=== PATIENT | female | born 1955 | race Caucasian/White ===

== ENCOUNTER 2022-08-26 18:58 | Inpatient (IN) | payer OTHER ==
--- OUTSIDE RECORDS SUMMARY | 2022-08-26 19:14 | XMS REPORT | Continuity of Care Document ---
:1955 Author Organization [facility] t Address [address] [place] [address] Care Team Providers Name Role Phone ABEL JIM COSTA Primary Care Physician CATRACHITO FOX Attending Clinician Unavailable CATRACHITO FOX Attending Clinician Unavailable KHAN_F Attending Clinician Unavailable LEONCIO DIEGO Attending Clinician Unavailable MATTHEW BERRY Attending Clinician Unavailable MENDEZ AGUILAR Attending Clinician Unavailable Durayappah_A Attending Clinician Unavailable Claudia Feldman MA Attending Clinician Unavailable DAMIEN MORALEZ Attending Clinician Unavailable ANTHONY WANG Attending Clinician Unavailable LEVAR JI Attending Clinician Unavailable CATRACHITO FOX M.D. Attending Clinician Unavailable MILTON TIRADO APRN Attending Clinician Unavailable IDRIS THAYER M.D. Attending Clinician Unavailable Reed Jordan Attending Clinician MARIA DEL CARMEN DEWEY Attending Clinician Unavailable KAHLIL LEWIS Attending Clinician Unavailable KHAN_F Admitting Clinician Unavailable Durayappah_A Admitting Clinician Unavailable ANTHONY WANG Admitting Clinician Unavailable LEVAR JI Admitting Clinician Unavailable Payers Payer Name Policy Type Policy Number Effective Date Expiration Date zuly [facility] [id number] 2021 00:00:00 [facility] [id number] 2020 [facility] 00:00:[address] (O) Problems Condition Condition Condition Status Onset Resolution Last Treating Co mments Source Name Details Category Date Date Treatment Clinician Date Anxiety Anxiety Problem Active [facility] disorder Disorder 1-07 Family 00:00: Practic 00 e Spasm Spasm Problem Active [facility] 1-07 Family 00:00: Practic 00 e Anxiety Anxiety Problem Active [facility] 9-14 Family 00:00: Practic 00 e Polyneurop Polyneurop Problem Active [facility] at[facility] athy 9-14 Family 00:00: Practic 00 e Low blood Low Blood Problem Active Niki [place] pressure Pressure 9-14 Family 00:00: Practic 00 e Gastro-eso Gastro-eso Problem Active [facility] phageal phageal 14 Family reflux Reflux 00:00: Practic disease Disease 00 e with with esophagiti Esophagiti s s Chronic Chronic Problem Active [facility] kidney Kidney -14 Family disease Disease 00:00: Practic stage 4 Stage 4 00 e Neurogenic Neurogenic Problem Active [facility] dysfunctio Dysfunctio -14 Jorden argueta n of the n of the 00:00: Practi c urinary Urinary 00 e bladder Bladder Rheumatoid Rheumatoid Problem Active [facility] arthritis Arthritis 14 Fami ly 00:00: Practic 00 e Ankle Ankle Problem Active [facility] instabilit Instabilit 9-14 Fa kendall y y 00:00: Practic 00 e Dysphagia Dysphagia Problem Active Niki sammi 9-14 Family 00:00: Practic 00 e Recurrent Recurrent Problem Active Niki [place] 9-14 Family 00:00: Practic 00 e G90.09 G90.09 Diagnosis Active 2021-04-07 Me moria Active 04-07 08:04:00 l 04/07/2021 08:00: Isaiah bartholomew [facility] 00 BACTERIAL BACTERIAL Diagnosis Active 2021-04-18 Memoria SEPSIS, SEPSIS, 04-07 22:04:00 l ACUTE UTI, ACUTE UTI, 00:00: He rmann PNEUNOMIA, PNEUNOMIA, 00 Active 04/07/2021 [facility] [place] AMS AMS Diagnosis Active 2021-04-07 Mem oria Active 04-07 10:36:00 l 04/07/2021 00:00: Isaiah bartholomew [address] [place] Problem Active [facility] a coli a Coli 6-14 Family 00:00: Practic 00 e KATZ KATZ Active Diagnosis Active 2021-03-19 Memoria 03/19/202103-19 16:55:00 l [facility] 16:52: Violet 00 WEAKNESS WEAKNESS Diagnosis Active 2021-03-11 Memoria Active 03-09 14:03:00 l [facility] 00:00: [facility] 00 EVAL EVAL Diagnosis Active 2021-03-07 Mem oria Active 02-11 09:49:00 l 02/11/2021 00:00: Isaiah bartholomew [facility] 00 LBP LBP Diagnosis Active 2020-05-28 Mem oria Active 05-25 13:26:00 l 05/25/2020 00:00: Isaiah bartholomew [address] CHARCOT CHARCOT Diagnosis Active 2020-03-15 Memoria LEFT FOOT, LEFT FOOT, 03-01 07:24:00 l PERIPHERAL PERIPHERAL 00:00: Reg diaz NEUROPHATY NEUROPHATY 00 Active 03/01/2020 [facility] I89.1 I89.1 Diagnosis Active 2019-12-26 Mem oria Active 12-04 09:45:00 l 12/04/2019 08:00: Isaiah bartholomew [facility] 00 NONE NONE Diagnosis Active 2018-102019-10-20 Mem oria Active 12-21 14:58:00 l 10/20/2019 08:00: Isaiah BAEZ [facility] 00 F/U F/U Diagnosis Active 2018-102019-09-20 Mem oria Active 11-15 09:02:00 l 09/15/2019 00:00: Isaiah bartholomew [address] LEFT FOOT LEFT Diagnosis Active 2019-07-19 Memoria BELIEVED FOOT 06-28 09:57:00 l TO HAVE BELIEVED 00:00: Kirby LYPHEDEMA TO HAVE 00 DUE LYPHEDEMA DUE Active 06/28/2019 [facility] M14.672,S9 Diagnosis Active 2019-02-20 Memoria 3.612A, M14.672,S9 02-15 08:58:00 l G62.9, 3.612A, 00:00: Kirby 25712, G62.9, 00 64248, 2 98236, 41403, 2 Active 02/15/2019 [facility] [place] [place] [address], [address]34, Diagnosis Active 2019-02-09 Me wetzel 52987, 10004, - 10:33:00 l 20780, 96358, 00:00: Kirby [address], 95169, 00 83451, 44781, CHARC CHARC Active 01/17/2019 [facility] [place] [place] HYPERCALCE HYPERCALC Diagnosis Active 2018-11-24 Memoria CHINEDU, EMIA, 11-21 11:50:00 l HYPONATREM HYPONATREM 00:00: He rmann IA IA Active 00 11/21/2018 [facility] [place] ABNORMAL ABNORMAL Diagnosis Active 2018-11-21 Memoria LABS LABS 11-21 18:27:00 l Active 00:00: Kirby 11/21/2018 00 [facility] [place] [address], [address], Diagnosis Active 2018-02-03 Me wetzel Z86.010 Z86.010 4- 08:22:00 l COLON COLON 00:00: Violet POLYPS POLYPS 00 Active 01/25/2018 [facility] [place] [address], [address]88, Diagnosis Active 2016-102017-09-09 Me wetzel POLYPS POLYPS 10-25 18:15:00 l COLON, COLON, 00:00: Violet POLYPS POLYPS 00 RECTUM RECTUM K63.5 K63.5 Active 08/25/2017 [facility] [place] [address], [address]19, Diagnosis Active 2017-07-27 Me wetzel Z12.11 Z12.11 - 12:32:00 l COLON COLON 00:00: Kirby CANCER CANCER 00 SCREENING SCREENING Active 06/14/2017 [facility] [place] Z13.820 - Z13.820 Diagnosis Active 2017-02-08 Memoria ENCOUNTER - 4-12 12:37:00 l FOR ENCOUNTER 00:01: Violet SCREENING FOR 00 FOR OS SCREENING FOR OS Active 02/03/2017 [facility] DEHYDRATIO DEHYDRATI Diagnosis Active 2020-05-28 Memoria N ON Active 13:26:00 l [facility] SEPSIS, SEPSIS, Diagnosis Active 2021-04-18 Memoria UNSPECIFIE UNSPECIFIE 22:04:00 l D ORGANISM D ORGANISM He rmann Active [facility] [place] URINARY URINARY Diagnosis Active 2021-04-18 Memoria TRACT TRACT 22:04:00 l INFECTION, INFECTION, He rmann SITE NOT SITE NOT SPECIF SPECIF Active [facility] [place] PNEUMONIA, PNEUMONIA Diagnosis Active 2021-04-18 Memoria UNSPECIFIE , 22:04:00 l D ORGANISM UNSPECIFIE He rmann D ORGANISM Active [facility] [place] HYPOKALEMI HYPOKALEM Diagnosis Active 2021-03-11 Memoria A IA Active 14:03:00 l [facility] ILLNESS, ILLNESS, Diagnosis Active 2017-09-09 Memoria UNSPECIFIE UNSPECIFIE 18:15:00 l D [facility] HYPERCALC Diagnosis Active 2018-11-24 Memoria CHINEDU EMIA 11:50:00 l Active [facility] n [facility] Diverticul Diverticu Problem 2018-12-20 Memoria itis of litis of 13:21:14 l large large Violet intestine intestine without without perforatio perforatio n or n or abscess abscess without without bleeding bleeding 12/20/2018 [facility] Other Other Problem 2018-12-20 Memor ia specified specified 13:21:14 l noninflamm noninflamm He [facility] atory atory disorders disorders of uterus of uterus 12/20/2018 [facility] Acquired Acquired Problem 2018-12-20 Memoria absence of absence of 13:21:14 l other other Violet specified specified parts of parts of digestive digestive tract tract 12/20/2018 [facility] [place] Acute Acute Problem 2019-06-13 Memor ia kidney kidney 14:59:11 l failure failure Violet with with tubular tubular necrosis necrosis 06/13/2019 [facility] [place] Hypo-osmol Problem 2019-06-13 M emoria ality and Hypo-osmol 14:59:11 l hyponatrem ality and Her blancas ia hyponatrem ia 06/13/2019 [facility] [place] Chronic Chronic Problem 2019-06-13 Me moria kidney kidney 14:59:11 l disease, disease, Isaiah n stage 4 stage 4 (severe) (severe) 06/13/2019 [facility] [place] Hypertensi Hypertens Problem 2019-06-13 Memoria ve chronic marisol 14:59:11 l kidney chronic Kirby disease kidney with stage disease 1 through with stage stage 4 1 through chronic stage 4 kidney chronic disease, kidney or disease, unspecifie or d chronic unspecifie kidney d chronic disease kidney disease 06/13/2019 [facility] [place] Hypokalemi Hypokalem Problem 2019-06-13 Memoria a ia 14:59:11 l 06/13/2019 Isaiah bartholomew [facility] [place] Gastro-eso Gastro-es Problem 2019-06-13 Memoria phageal ophageal 14:59:11 l reflux reflux Violet disease disease without without esophagiti esophagiti s s 06/13/2019 [facility] [place] Rheumatoid Rheumatoi Problem 2019-06-13 Memoria arthritis, d 14:59:11 l unspecifie arthritis, He rmann d unspecifie d 06/13/2019 [facility] [place] Repeated Repeated Problem 2019-06-13 Memoria [place] 14:59:11 l 06/13/2019 Isaiah bartholomew [facility] [place] Gout, Gout, Problem 2019-06-13 Memor ia unspecifie unspecifie 14:59:11 l d d Violet 06/13/2019 [facility] [place] Hypovolemi Hypovolem Problem 2019-06-13 Memoria a ia 14:59:11 l 06/13/2019 Isaiah bartholomew [facility] [place] Obesity, Obesity, Problem 2019-06-13 Memoria unspecifie unspecifie 14:59:11 l d d Kirby 06/13/2019 [facility] [place] Elevated Elevated Problem 2019-06-13 Memoria white white 14:59:11 l blood cell blood cell He rmann count, count, unspecifie unspecifie d d 06/13/2019 [facility] [place] Hypothyroi Hypothyro Problem 2019-06-13 Memoria dism, idism, 14:59:11 l unspecifie unspecifie He rmann d d 06/13/2019 [facility] [place] Type 2 Type 2 Problem 2019-06-13 Jaron feli diabetes diabetes 14:59:11 l mellitus mellitus Isaiah bartholomew with with diabetic diabetic chronic chronic kidney kidney disease disease 06/13/2019 [facility] [place] Type 2 Type 2 Problem 2019-06-13 Jaron feli diabetes diabetes 14:59:11 l mellitus mellitus Isaiah n with with diabetic diabetic neuropathy neuropathy , , unspecifie unspecifie d d 06/13/2019 [facility] [place] Displaced Displaced Problem 2019-06-13 Memoria fracture fracture 14:59:11 l of fifth of fifth Isaiah bartholomew metatarsal metatarsal bone, left bone, left foot, foot, initial initial encounter encounter for closed for closed fracture fracture 06/13/2019 [facility] [place] Personal Personal Problem 2019-06-13 Memoria history of history of 14:59:11 l colonic colonic Violet polyps polyps 06/13/2019 [facility] [place] Personal Personal Problem 2019-06-13 Memoria history of history of 14:59:11 l nicotine nicotine Isaiah n dependence dependence 9 [facility] [place] Other Other Problem 2019-06-13 Memor ia specified specified 14:59:11 l disorders disorders Herm marcella of bone of bone density density and and structure, structure, unspecifie unspecifie d site d site 06/13/2019 [facility] [place] Exposure Exposure Problem 2019-06-13 Memoria to other to other 14:59:11 l specified specified Herm marcella factors, factors, initial initial encounter encounter 06/13/2019 [facility] [place] Diverticul Diverticu Problem 2018-05-13 Memoria osis of losis of 04:14:15 l large large Kirby intestine intestine without without perforatio perforatio n or n or abscess abscess without without bleeding bleeding 05/13/2018 [facility] [place] Residual Residual Problem 2018-05-13 Memoria hemorrhoid hemorrhoid 04:14:15 l al skin al skin Violet tags tags 05/13/2018 [facility] [place] Other Other Problem 2018-05-13 Memor ia hemorrhoid hemorrhoid 04:14:15 l s s Violet 05/13/2018 [facility] [place] Disorder Disorder Problem 2018-05-13 Memoria of of 04:14:15 l thyroid, thyroid, Isaiah n unspecifie unspecifie d d 05/13/2018 [facility] [place] Heartburn Heartburn Problem 2018-05-13 Memoria 04:14:15 l 8 [facility] Chronic Chronic Problem 2018-05-13 Me moria kidney kidney 04:14:15 l disease, disease, Isaiah n stage 3 stage 3 (moderate) (moderate) 8 [facility] [place] Encounter Encounter Problem 2019-08-17 Memoria for for 23:10:28 l screening screening Herm marcella mammogram mammogram for for malignant malignant neoplasm neoplasm of breast of breast 08/17/2019 [facility] History of History of Problem Resolve [facility] gout gout d Physici ans History of History of Problem Resolve [facility] hypertensi hypertensi d Ph ysici on on ans History of History of Problem Resolve [facility] kidney kidney d Physici disease disease ans History of History of Problem Resolve [facility] thyroid thyroid d Physici disorder disorder ans Left foot Left foot Problem Active [facility] pain pain Physici ans Right foot Right foot Problem Active U T pain pain Physici ans Charcot's Charcot's Problem Active [facility] joint of joint of Physic i foot, left foot, left an s Sprain of Sprain of Problem Active [facility] tarsal tarsal Physici ligament ligament ans of foot, of foot, left, left, initial initial encounter encounter Peripheral Peripheral Problem Active U T neuropathy neuropathy Ph ysici ans Ulnar Ulnar Problem Active [facility] neuropathy neuropathy Ph ysici of left of left ans upper upper extremity extremity Painful Painful Problem Active [facility] orthopaedi orthopaedi Ph ysici c hardware c hardware an s Closed Closed Problem Active [facility] fracture fracture Physic i of distal of distal ans phalanx of phalanx of right right great toe, great toe, initial initial encounter encounter Ankle Ankle Problem Active [facility] instabilit instabilit Ph ysici y, left y, left ans Encounter Encounter Problem Active [facility] for for Physici administra administra an s tion of tion of COVID-19 COVID-19 vaccine vaccine Phobia Phobia Problem Active [facility] Charcot's Charcot's Problem Active Niki sammi joint of Joint of Family foot Foot Practic e Polyp of Polyp of Problem Active Benitez ge colon Colon Family Practic e Simple Simple Problem Active [facility] obesity Obesity Family Practic e Neuropathy Neuropathy Problem Active [facility] Peripheral Peripheral Problem Active [facility] vascular Vascular Family disease Disease Practic e Lymphedema L[facility] Family reflux Reflux Practic disease Disease e Diverticul Diverticul Problem Active [facility] ar disease ar Disease Fa kendall Practic e Chronic Chronic Problem Active [facility] kidney Kidney Family disease Disease Practic stage 3 Stage 3 e Chronic Chronic Problem Active [facility] kidney Kidney Family disease Disease Practic e Abnormal Abnormal Problem Active Benitez ge foot pulse Foot Pulse Fa kendall Practic e Dyspnea on Dyspnea on Problem Active [facility] exertion Exertion Family Practic e Prolonged Prolonged Problem Active Niki sammi QT QT Family interval Interval Practi c e Electrocar Electrocar Problem Active [facility]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 Family abnormal Abnormal Practi c e History of History of Problem Active [facility] urinary Urinary Family tract Tract Practic infection Infection e History of History of Problem Active [facility] hypertensi Hypertensi Fa kendall on on Practic e Sedentary Sedentary Problem Active Niki sammi lifestyle Lifestyle Fami ly Practic e [place] Problem Active [facility]itez ge Family Practic e Retention Retention Problem Active Niki sammi of urine of Urine Family Practic e Hypothyroi Hypothyroi Problem Active [facility] dism dism Family Practic e Gout Gout Problem Active [facility] Dehydratio Dehydratio Problem Active [facility] ill[facility] n n Family Practic e Hypercalce Hypercalc Problem Resolve 2021-06-19 2021-06-19 Ismael reddyia d 10-25 00:02:43 00:02:43 l (disorder) (disorder) 00:00: He rmann Resolved 10/25/2018 Problem 06/19/2021 [facility], [facility] [place] Hypokalemi Hypokalem Problem Resolve 2021-06-19 2021-06-19 Memoria alejandro ia d 10-25 00:02:43 00:02:43 l (disorder) (disorder) 00:00: He rmann Resolved 10/25/2018 Problem 06/19/2021 secondary to diruresis of hypercalce chinedu [facility], [facility] [place] Hyponatrem Hyponatre Problem Resolve 2021-06-19 2021-06-19 Memzaida blanchard d 10-25 00:02:43 00:02:43 l (disorder) (disorder) 00:00: He rmann Resolved 10/25/2018 Problem 06/19/2021 secondary to diuresis of hypercalce chinedu [facility], [facility] [place] History of Past Illness Condition Condition Condition Status Onset Resolution Last Treating Co mments Source Name Details Category Date Date Treatment Clinician Date Hypercalce Hypercalc Problem 2019-06-13 2019-06-13 Ismael reddyia 12-13 14:59:11 14:59:11 l 12/13/2018 05:25: Isaiah bartholomew 24 9 [facility] [place] Abdominal Abdominal Problem 2017-2018-12-20 2018-12-20 Memoria distension distension 8-16 13:21:14 13:21:14 l (gaseous) (gaseous) 04:03: Herm marcella 06/09/2018 14 9 ANNMARIE [facility] Encounter Encounter Problem 2017-2018-05-13 2018-05-13 [facility] for for 02-11 04:14:15 04:14:15 l screening screening 03:52: Herm marcella for for 23 malignant malignant neoplasm neoplasm of colon of colon 02/11/2018 05/13/2018 [facility] [place] Allergies, Adverse Reactions, Alerts This patient has no known allergies or adverse reactions. Family History Family Member Diagnosis Comments Start Date Stop Date Source Unknown Family Family history of Other [facility] Member hypertension Unknown Family Family history of Other [facility] Member arthritis Social History Social Habit Start Date Stop Date Quantity Comments Source Exposure to Not sure [facility] SARS-CoV-2 (event) Tobacco use and 2021-08-12 2021-08-12 Former smokeless [facility] exposure 00:00:00 00:00:00 tobacco user Alcohol intake 2021-08-12 2021-08-12 Ex-drinker [facility] 00:00:00 00:00:00 (finding) Social History 2019-02-01 2019-02-01 [facility] ermann 13:32:03 13:32:03 [birth year] [facility] 00:00:00 00:00:00 Smoking Status Start Date Stop Date Source Tobacco smoking consumption unknown [facility] Ex-smoker 2021-08-12 00:00:00 2021-08-12 00:00:00 [facility] Medic[facility] Ordered Filled Start Stop Current Ordering Indication Dosage Frequency Signature Comments Components Source Medication Medication Date Date Medication? Clinician (SIG) Name Name allopurinol 2020-10 Yes QD 1 (one) [facility] (Zyloprim) 0-19 time each Heal th 300 MG 14:19: day. tablet 37 ALPRAZolam 2020-10 Yes Q12H every 12 [facility] (Xanax) 0.5 0-19 (twelve) Heal th MG tablet 14:19: hours. 37 esomeprazol 2020-10 Yes 1{capsu QD 1 capsule UT e (NexIUM) 0-19 le} 1 (one) Health [address] 14:19: time each capsule 37 day. hydroxychlo 2020-10 Yes hydroxychl UT roquine 0-19 oroquine Health (Plaquenil) 14:19: 200 mg 200 MG 37 tablet tablet TAKE 1 TABLET BY MOUTH EVERY DAY lactulose 2020-10 Yes lactulose UT (Chronulac) 0-19 10 gram/15 He alth 10 GM/15ML 14:19: mL oral solution 37 solution TAKE 30 ML BY MOUTH EVERY DAY levothyroxi 2020-10 Yes Synthroid U T ne 0-19 50 mcg Health (Synthroid) 14:19: tablet 50 MCG 37 tablet midodrine 2020-10 Yes midodrine UT (Proamatine 0-19 5 mg Health ) 5 MG 14:19: tablet tablet 37 TAKE 1 TABLET BY MOUTH EVERY 8 HOURS ondansetron 2020-10 Yes ondansetro UT ODT 0-19 n 4 mg Health (Zofran-ODT 14:19: disintegra ) 4 MG 37 ting disintegrat tablet ing tablet DISSOLVE 1 TABLET ON THE TONGUE EVERY 8 HOURS NEEDED FOR NAUSEA OR VOMITING potassium 2020-10 Yes potassium UT chloride ER 0-19 chloride Heal th (Micro-K) 14:19: ER 10 mEq 10 MEQ ER 37 capsule,ex capsule tended release TAKE 1 CAPSULE BY MOUTH TWICE DAILY WITH FOOD spironolact 2020-10 Yes spironolac UT one 0-19 tone 25 mg Health (Aldactone) 14:19: tablet 25 MG 37 TAKE 1 tablet TABLET BY MOUTH TWICE DAILY furosemide 2020-10 Yes 20mg QD Take 20 mg U T (Lasix) 20 0-12 by mouth 1 Hea lth MG tablet 00:00: (one) time 00 each day. gabapentin Yes 900mg [id number] Take 900 UT (Neurontin) 9-30 [id number] mg by H ealth 300 MG 00:00: 3D mouth 3 capsule 00 (three) times a day. sulfamethox Yes TAKE 1 UT azole-trime 9-27 TABLET BY Hea lth thoprim 00:00: MOUTH (Bactrim 00 TWICE DS) 800-160 DAILY FOR MG tablet 3 DAYS FOR UTI levofloxaci Yes 750 mg = 1 Memoria n 750 mg 7-22 tab, PO, l oral tablet 19:29: Daily, # He rmann 00 10 tab, 0 Refill(s) Furosemide 0 Yes 40 mg = 1 Me moria 40 MG Oral 6-21 tab, PO, l Tablet 19:31: Daily, # Violet [Lasix] 00 30 tab, 0 Refill(s), Pharmacy: [facility] #[id number], 162.56, cm, 04/07/21 20:06:00 CDT, Height, 66.2, kg, 04/07/21 20:06:00 CDT, Weight linezolid Yes 600 mg = 1 Me moria 600 mg oral 6-21 tab, PO, l tablet 19:28: [id number], X Leola nn 00 9 day, # 18 tab, 0 Refill(s), Pharmacy: [facility] #[id number], 162.56, cm, 04/07/21 20:06:00 CDT, Height, 66.2, kg, 04/07/21 20:06:00 CDT, Weight Furosemide No 40 mg = 1 Me moria 40 MG Oral 6-21 tab, PO, l Tablet 19:28: BID, 0 Violet [Lasix] 00 Refill(s) midodrine 5 Yes 10 mg = 2 M emoria mg oral 6-21 tab, PO, l tablet 19:27: Q8H, # 180 Leola nn 00 tab, 0 Refill(s), Pharmacy: [facility] #[id number], 162.56, cm, 04/07/21 20:06:00 CDT, Height, 66.2, kg, 04/07/21 20:06:00 CDT, Weight lactobacill 0 Yes 1 cap, PO, Memoria us 6-21 BID, X 14 l rhamnosus 19:27: day, # 28 Her blancas GG 80 mg 00 cap, 0 oral Refill(s), capsule Pharmacy: [facility] #[id number], 162.56, cm, 04/07/21 20:06:00 CDT, Height, 66.2, kg, 04/07/21 20:06:00 CDT, Weight levofloxaci 0 Yes 750 mg = 1 Memoria n 750 mg 6-21 tab, PO, l oral tablet 19:27: [id number], X 9 day, # 5 tab, 0 Refill(s), Pharmacy: [facility] #[id number], 162.56, cm, 04/07/21 20:06:00 CDT, Height, 66.2, kg, 04/07/21 20:06:00 CDT, Weight Lactobacill Lactobacill No Lactobacil [facility] 04-14 ruthann Family rhamnosus rhamnosus 00:00: rhamnosus Practic GG 15 GG 15 00 GG 15 e billion billion billion cell cell cell sprinkle sprinkle sprinkle capsule capsule capsule linezolid linezolid No linezolid [place] 600 mg 600 mg -21 600 mg Family tablet tablet 00:00: tablet Practic 00 e Florastor No 250 mg, Memor ia 6-20 Route: PO, l 22:00: BID, Dosing Weight 66.2, kg, Start date: 04/13/21 17:00:00 CDT, Duration: 30 day, Stop date: 05/13/21 9:00:00 CDT Lactobacill No Notes: Jaron feli us casei 6-20 Same as l rhamnosus 22:00: Culturelle oxybutynin No Notes: Memor ia 6-20 Same as: l 18:00: Ditropan) Furosemide No Notes: Memor ia 40 MG Oral 6-20 (Same as: l Tablet 17:09: Lasix) May [Lasix] 00 cause GI upset. Give with food or milk. linezolid No Notes: Memori a 6-20 Protect l 03:00: from light. (Same as: Zyvox) Levofloxaci No Notes: Do M emoria n -19 not give l 21:00: w/antacids , dairy pdt & minerals Take 1 hr before or 2 hr after dairy products albumin No Notes: Memoria human 25% 6-18 LOT#: l intravenous 22:00: Kirby solution 00 ___ Mfg: WASTE: F/P - Red; E -Red (Same as: Albuminar) "blood product derivative " Zyvox No Notes: Memoria 6-18 (Same as: l 03:00: Zyvox) Violet 00 ProAmatine No Notes: Memor ia 6-17 (Same l 15:11: as:Proamat Violet 00 ine) meropenem No Notes: Memori a 6-17 Same as l 14:00: Merrem Potassium No Notes: Memori a Chloride 6-16 (Same as: l 16:13: K-Dur 20) "Do Not Crush" Give with food and full glass of water For patients unable to swallow tablet, dissolve in one half glass of water. Allow about 2 minutes for the tablets to disintegra te. Stir before giving to prepare slurry and administer . Please exclude Patient s with feeding tube less than 14 Lao (Dobhoff, J-tube etc) and pediatric and patients. potassium No Notes: Memori a phosphate-s -16 (Same as: l odium 16:13: Phos-NaK) phosphate 00 Each 1.5 250 mg-280 gm pkt has mg-160 mg 250mg oral powder phosphorou for s. Mix reconstitut w/2.5oz ion water and stir. potassium No Notes: Memori a phosphate 6-16 (Same as: l 16:13: K Kirby 00 Phosphate. ) Do not infuse phosphorou s concurrent ly in the same line as TPN or IVF that contains calcium. For double lumen central lines, phosphorou s may be infused in a separate lumen from TPN. 1 mMol phoshate has 1.47 mEq potassium Infuse over 4 hours sodium No Notes: Memoria phosphate 6-16 Infuse l 16:13: over 4 Violet 00 hour. Do not infuse phosphorou s concurrent ly in the same line as TPN or IVF that contains calcium. For double lumen central lines, phosphorou s may be infused in a separate lumen from TPN. Magnesium No Notes: Memori a Sulfate 6-16 WASTE: F/P l 16:13: - Sink; E Kirby 00 - Municipal Trash Bin Magnesium No Notes: Memori a Oxide 6-16 (Same as: l 16:13: Mag-Ox Kirby 00 400) Magnesium oxide [id number] g elemental magnesium Dose=____m g magnesium oxide (___mg elemental magnesium) Calcium No Notes: Memoria Gluconate -16 WASTE: F/P l 16:13: - Sink; E Kirby 00 - Municipal Trash Bin potassium No Notes: Memori a chloride 20 -16 (Same as: l mEq oral 12:01: K-Dur 20) Herm marcella tablet, 00 "Do Not extended Crush" release Give with (KCL) food and full glass of water For patients unable to swallow tablet, dissolve in one half glass of water. Allow about 2 minutes for the tablets to disintegra te. Stir before giving to prepare slurry and administer . Please exclude Patient s with feeding tube less than 14 Lao (Dobhoff, J-tube etc) and pediatric and patients. Melatonin No Notes: Memori a 6-16 (Same as: l 02:00: Melatonin) 00 1/2NS + KCL No Notes: Jaron feli 20mEq/L 6-15 PREMIX IV l 1000ml 14:45: - Do Not Violet (Premix) 00 Alter 1,000 mL WASTE: F/P - Sink; E - Municipal Trash Bin Midodrine No Notes: Memori a 6-15 (Same l 14:22: as:Proamat Kirby 00 ine) pantoprazol No Notes: Jaron feli e 6-15 Tablet l 14:22: should not Kirby 00 be chewed or crushed. (Same as: Protonix) Buspirone No Notes: Memori a 6-15 (Same As: l 14:00: BuSpar) Violet 00 Synthroid No Notes: Memori a 6-15 Take 1 l 14:00: hour Violet 00 before or 2 hours after meal; Enteral feeds may interefere with the absorption of this medication .(Same as:Levothr oid, Synthroid) Thiamine No Notes: Memoria 6-15 (Same As: l 14:00: Vitamin Violet 00 B1) POLYETHYLEN No Notes: Jaron feli E GLYCOL 6-15 Dissolve l 3350 14:00: in 8 oz of water or juice. (Same as: Miralax) Lactulose No Notes: Memori a 667 MG/ML 6-15 (Same l Oral 13:43: as:Chronul Violet Solution 00 ac) BD Normal No Notes: Memori a Saline 6-15 (Same as: l Flush 13:16: BD Posiflush) Sodium No 25 mL, Memoria Chloride 6-15 Route: IV, l 0.9% IV 13:16: Start date: 04/08/21 8:16:00 CDT, Duration: 30 day, Stop date: 05/08/21 8:15:00 CDT, PRN Line Flush, 0 BD Normal No Notes: Memori a Saline 6-15 (Same as: l Flush 13:15: BD Violet 00 Posiflush) Saline No Notes: Memoria Flush 0.9% 6-15 (Same as: l 05:00: BD Kirby 00 Posiflush) cefepime No Notes: Memoria 6-15 (Same As: l 04:00: Maxipime) MEDICATION WASTE Product Size: 1000 mg Product Wasted: ___ mg Potassium No Notes: Memori a Chloride 6-15 (Same as: l 1.33 MEQ/ML 02:08: Potassium H ermann Oral 00 Chloride) Solution NS (Bolus) No 250 mL, Jaron feli IV 6-15 250 ml/hr, l 01:16: Infuse Violet 00 Over: 1 hr, Route: IV, 250, Drug form: INJ, ONCE, Priority: STAT, Dosing Weight 66.2 kg, Start date: 04/07/21 20:16:00 CDT, Stop date: 04/07/21 20:16:00 CDT, 0 Norepinephr No Notes: Jaron feli ine 6-14 Same as: l 22:30: Levophed. Kirby 00 Administer by either central venous catheter or peripheral ly-inserte d central catheter (PICC) line. Saline No Notes: Memoria Flush 0.9% 6-14 (Same as: l 22:02: BD Violet 00 Posiflush) Saline No 10 mL, Memoria Flush 0.9% 6-14 Route: l 21:00: IVP, Drug Violet 00 Form: INJ, Dosing Weight 56.006, kg, Q8H, Start date: 04/07/21 16:00:00 CDT, Duration: 30 day, Stop date: 05/07/21 8:00:00 CDT Vitamin C Yes 500 mg = 1 Me moria 500 mg oral 6-14 tab, PO, l tablet 19:41: Daily, # Kirby 00 90 tab, 0 Refill(s) Robitussin- Yes 10 mL, PO, Memoria DM 6-14 Q6H, PRN l 19:41: prn, 0 Kirby 00 Refill(s) LORazepam No 0.25 mg = Mem oria 0.5 mg oral 6-14 0.5 tab, l tablet 19:40: PO, BID, # Leola nn 00 15 tab, 0 Refill(s) busPIRone 5 Yes 5 mg = 1 Me moria mg oral 6-14 tab, PO, l tablet 19:40: BID, # 90 Isaiah n 00 tab, 0 Refill(s) Docusate Yes 100 mg = 1 Mem oria Sodium 100 6-14 cap, PO, l MG Oral 19:36: BID, # 60 Leola nn Capsule 00 cap, 0 [Colace] Refill(s) melatonin Yes 10 mg = 1 Mem oria 10 mg oral 6-14 tab, PO, l tablet 19:35: Bedtime, 0 Leola nn 00 Refill(s) Lactulose Yes 20 gm = 30 Me moria 667 MG/ML 6-14 mL, PO, l Oral 19:35: Daily, PRN Kirby Solution 00 constipati on, # 240 mL, 0 Refill(s) Ondansetron No 4 mg = 1 Me moria 4 MG 6-14 tab, PO, l Disintegrat 19:34: Q8H, PRN He rmann ing Tablet 00 Nausea / Vomiting, Dissolve tab under tongue, # 10 tab, 0 Refill(s) Acetaminoph Yes 325 mg = 1 Memoria en 325 MG 6-14 tab, PO, l Oral Tablet 19:34: TID, PRN He rmann [Tylenol] 00 Pain, # 60 tab, 0 Refill(s) Levothyroxi Yes 50 Memori a ne Sodium 6-14 microgram l 0.05 MG 19:32: = 1 tab, Isaiah n Oral Tablet 00 PO, Daily, [Synthroid] # 90 tab, 0 Refill(s) midodrine 5 No 5 mg = 1 Me moria mg oral 6-14 tab, PO, l tablet 19:32: Q8H, # 90 Isaiah n 00 tab, 3 Refill(s) Acetaminoph 0 No 100.4 F, M emoria en 6-14 Start l 17:21: date: 04/07/21 12:21:00 CDT, Duration: 30 day, Stop date: 05/07/21 12:20:00 CDT Dextrose 2020-0 No 12.5 gm, Memor ia 50% Syringe -14 25 mL, l (D50W) 17:21: Route: IVP, Drug Form: INJ, Dosing Weight 56.006, kg, PRN, PRN Blood Glucose Results, Start date: 04/07/21 12:21:00 CDT, Duration: 30 day, Stop date: 05/07/21 12:20:00 CDT, 0 Glucagon 2020- No 1 mg, Memoria -14 Route: IM, l 17:21: Drug form: PDR/INJ, PRN, Dosing Weight 56.006, kg, PRN Blood Glucose Results, Start date: 04/07/21 12:21:00 CDT, Duration: 30 day, Stop date: 05/07/21 12:20:00 CDT, 0 Ondansetron No Notes: Jaron feli 6-14 (Same as: maxine 17:21: Zofran) MEDICATION WASTE Product Size: 4 mg Product Wasted: ___ mg Sodium 0 No 1,000 mL, Memori a Chloride 6-14 Rate: 100 l 0.9% IV 17:21: ml/hr, Kirby 1,000 mL 00 Infuse over: 10 hr, Route: IV, Dosing Weight 56.006 kg, Total Volume: 1,000, Start date: 04/07/21 12:21:00 CDT, Duration: 30 day, Stop date: 05/07/21 12:20:00 CDT, BSA: 1.6 m2, 0 Saline 2020-0 No 10 ml, Memoria Flush 0.9% 6-14 Route: l 17:21: IVP, Drug Violet 00 Form: INJ, Dosing Weight 56.006, kg, PRN, PRN Line Flush, Start date: 04/07/21 12:21:00 CDT, Duration: 30 day, Stop date: 05/07/21 12:20:00 CDT Lidocaine 0 No Notes: Memori a Hydrochlori 6-14 Preservati l de 10 MG/ML 17:00: ve free. He rmann Injectable 00 (Same as: Solution Xylocaine MPF) Vancomycin 0 No 1 gm, Memori a 6-14 Route: l 16:38: IVPB, Drug Kirby 00 form: INJ, ONCE, Dosing Weight 56.006, kg, Priority: STAT, Start date: 04/07/21 11:38:00 CDT, Stop date: 04/07/21 11:38:00 CDT, ABX Indication : Bacteremia Saline 0 No 10 mL, Memoria Flush 0.9% 6-14 Route: l 16:38: IVP, Drug Violet 00 Form: INJ, Dosing Weight 56.006, kg, PRN, PRN Line Flush, Start date: 04/07/21 11:38:00 CDT, Duration: 30 day, Stop date: 05/07/21 11:37:00 CDT Zosyn 2020-0 No 3.375 gm, Memoria 6-14 Route: l 16:37: IVPB, Kirby 00 ONCE, Dosing Weight 56.006, kg, Priority: STAT, Start date: 04/07/21 11:37:00 CDT, Stop date: 04/07/21 11:37:00 CDT, ABX Indication : Urinary Tract Infection cefepime 2020-0 No 1 gm, Memoria 6-14 Route: l 16:37: IVPB, Violet 00 ONCE, Dosing Weight 56.006, kg, Priority: STAT, Start date: 04/07/21 11:37:00 CDT, Stop date: 04/07/21 11:37:00 CDT, ABX Indication : Bacteremia Sodium 2020-0 No 1,000 mL, Memori a Chloride 6-14 2,000 l 0.9% 16:06: ml/hr, Kirby (Bolus) IV 00 Infuse Over: 1 Hour, Route: IV, ONCE, Priority: STAT, Dosing Weight 56.006 kg, Start date: 04/07/21 11:06:00 CDT, Stop date: 04/07/21 11:06:00 CDT Saline 1-0 No 10 mL, Memoria Flush 0.9% 6-14 Route: l 14:56: IVP, Drug Kirby 00 Form: INJ, Dosing Weight 56.006, kg, PRN, PRN Line Flush, Start date: 04/07/21 9:56:00 CDT, Duration: 30 day, Stop date: 05/07/21 9:55:00 CDT Sodium 1-0 No 1,000 mL, Memori a Chloride 6-14 2,000 l 0.9% 14:56: ml/hr, Kirby (Bolus) IV 00 Infuse Over: 1 Hour, Route: IV, ONCE, Priority: STAT, Dosing Weight 56.006 kg, Start date: 04/07/21 9:56:00 CDT, Stop date: 04/07/21 9:56:00 CDT acetaminoph acetaminoph No acetaminop [place] en 325 mg en 325 mg -14 hen 325 mg Family tablet tablet 00:00: tablet Practic 00 e ascorbic ascorbic No ascorbic V illage acid acid - acid Family (vitamin C) (vitamin C) 00:00: (vitamin Practic 500 mg 500 mg 00 C) 500 mg e tablet tablet tablet lorazepam lorazepam No lorazepam [place] 0.5 mg 0.5 mg -14 0.5 mg Family tablet tablet 00:00: tablet Practic 00 e melatonin melatonin No melatonin [place] 10 mg 10 mg 6-14 10 mg Family tablet tablet 00:00: tablet Practic 00 e pantoprazol Yes 40 mg = 1 M emoria e 40 mg 5-24 tab, PO, l oral 18:00: Before Kirby enteric 00 Breakfast, coated # 30 tab, tablet 0 Refill(s), Pharmacy: [facility] #[id number], 162.56, cm, 03/09/21 13:38:00 CDT, Height, 56.006, kg, 03/09/21 13:38:00 CDT, Weight Ondansetron Yes 4 mg = 1 Me moria 4 MG 5-24 tab, SL, l Disintegrat 18:00: Q8H, PRN He rmann ing Tablet 00 Nausea & Vomiting, # 20 tab, 0 Refill(s), Pharmacy: [facility] STORE #[id number], 162.56, cm, 03/09/21 13:38:00 CDT, Height, 56.006, kg, 03/09/21 13:38:00 CDT, Weight thiamine Yes 100 mg = 1 Mem oria 100 mg oral 5-24 tab, PO, l tablet 18:00: Daily, # Kirby 00 30 tab, 0 Refill(s), Pharmacy: [facility] #[id number], 162.56, cm, 03/09/21 13:38:00 CDT, Height, 56.006, kg, 03/09/21 13:38:00 CDT, Weight midodrine 5 Yes 10 mg = 2 M emoria mg oral 5-24 tab, PO, l tablet 17:59: Q8H, # 30 Isaiah n 00 tab, 0 Refill(s), Pharmacy: [facility] ST[facility] #[id number], 162.56, cm, 03/09/21 13:38:00 CDT, Height, 56.006, kg, 03/09/21 13:38:00 CDT, Weight Nephro-Xiomy Yes 1 tab, PO, Memoria Rx oral 5-24 Daily, # l tablet 17:59: 30 tab, 0 Isaiah n 00 Refill(s), Pharmacy: [facility] #[id number], 162.56, cm, 03/09/21 13:38:00 CDT, Height, 56.006, kg, 03/09/21 13:38:00 CDT, Weight Acetaminoph Yes 100.4 F, M emoria en 325 MG 5-24 # 24 tab, l Oral Tablet 17:58: 0 Isaiah n 00 Refill(s), Pharmacy: [facility] #[id number], 162.56, cm, 03/09/21 13:38:00 CDT, Height, 56.006, kg, 03/09/21 13:38:00 CDT, Weight Magnesium Yes 1 tab, PO, Me moria Chloride 5-24 TID, # 60 l 535 MG 17:58: tab, 0 Violet Enteric 00 Refill(s), Coated Pharmacy: Tablet [facility] #[id number], 162.56, cm, 03/09/21 13:38:00 CDT, Height, 56.006, kg, 03/09/21 13:38:00 CDT, Weight Melatonin 3 Yes 3 mg = 1 Me moria MG Extended 5-24 tab, PO, l Release 17:58: Bedtime, # Herm marcella Tablet 00 10 tab, 0 Refill(s), Pharmacy: [facility] ST[facility] #[id number], 162.56, cm, 03/09/21 13:38:00 CDT, Height, 56.006, kg, 03/09/21 13:38:00 CDT, Weight Melatonin 3 No Notes: Jaron feli MG Extended 5-24 (Same as: l Release 02:00: Melatonin) Herm marcella Tablet 00 thiamine thiamine No thiamine V illage mononitrate mononitrate 5-24 mononitrat Family (vitamin (vitamin 00:00: e (vitamin Practic B1) 100 mg B1) 100 mg 00 B1) 100 mg e tablet tablet tablet albumin No Notes: Memoria human 25% 5-23 LOT#: l intravenous 17:29: Kirby solution 00 ___ Mfg: WASTE: F/P - Red; E -Red (Same as: Albuminar) "blood product derivative " pantoprazol No Notes: Jaron feli e 5-22 Tablet l 15:31: should not Kirby 00 be chewed or crushed. (Same as: Protonix) potassium No Notes: Memori a chloride 10 5-21 (Same as: l mEq oral 18:00: K-Dur 10) Herm marcella tablet, 00 "Do Not extended Crush" release With food (KCL) and full glass of water Magnesium No Notes: Memori a Chloride 5-21 (Same as: l 535 MG 18:00: Magdelay, Isaiah n Enteric 00 Slow-Mag) Coated Tablet Midodrine No Notes: Memori a 5-21 (Same l 17:24: as:Proamat Violet 00 ine) Potassium No Notes: Memori a Chloride 5-21 MUST be l 03:00: Diluted Kirby before use (Same as: KCl) MEDICATION WASTE Product Size: 40 mEq Product Wasted: ___ mEq Magnesium No Notes: Memori a Sulfate 5-21 WASTE: F/P l 02:00: - Sink; E Violet - Municipal Trash Bin potassium No Notes: Memori a phosphate 5-21 (Same as: l 01:24: K Kirby 00 Phosphate. ) Do not infuse phosphorou s concurrent ly in the same line as TPN or IVF that contains calcium. For double lumen central lines, phosphorou s may be infused in a separate lumen from TPN. 1 mMol phoshate has 1.47 mEq potassium Infuse over 4 hours Calcium No Notes: Memoria Gluconate 5-21 WASTE: F/P l 01:24: - Sink; E Violet 00 - Municipal Trash Bin Potassium No Notes: Memori a Chloride 5-19 MUST be l 20:00: Diluted Kirby 00 before use (Same as: KCl) MEDICATION WASTE Product Size: 20 mEq Product Wasted: ___ mEq Potassium No Notes: Memori a Chloride 5-19 (Same as: l 18:10: K-Dur 20) Kirby 00 "Do Not Crush" Give with food and full glass of water For patients unable to swallow tablet, dissolve in one half glass of water. Allow about 2 minutes for the tablets to disintegra te. Stir before giving to prepare slurry and administer . Please exclude Patient s with feeding tube less than 14 Lao (Dobhoff, J-tube etc) and pediatric and patients. Metoprolol No Notes: Memor ia Succinate 5-19 (Same as: l ER 25 mg 15:58: Toprol XL) Her blancas oral 00 Do Not tablet, Crush extended release Allopurinol No Notes: Jaron feli 5-18 (Same as: l 14:00: Zyloprim) Violet 00 Vitamin B12 No Notes: Jaron feli 5-18 (Same As: l 14:00: Vitamin Kirby 00 B-12) hydroxychlo No hydroxychl Memoria roquine 5-18 oroquine, l 14:00: 200 mg, Violet 00 Route: PO, Daily, 03/11/21 9:00:00 CDT, Duration: 30 day, Stop date: 04/09/21 9:00:00 CDT Thiamine No Notes: Memoria 5-18 (Same As: l 14:00: Vitamin Kirby 00 B1) Nephro-Xiomy No Notes: Jaron feli 5-18 (Same as: l 14:00: Nephro-Vit Kirby 00 e Rx and Diatx) Give with food. Sodium No 500 mL, Memoria Chloride 5-18 Rate: 20 l 0.9% IV 500 12:38: ml/hr, Herm marcella mL 00 Infuse over: 25 hr, Route: IV, Dosing Weight 56.006 kg, Total Volume: 500, Start date: 03/11/21 7:38:00 CDT, Duration: 1 doses or times, Stop date: 03/13/21 9:37:00 CDT, 1.6, m2, 0 Synthroid No Notes: Memori a 5-18 Take 1 l 11:30: hour Violet 00 before or 2 hours after meal; Enteral feeds may interefere with the absorption of this medication .(Same as:Levothr oid, Synthroid) Azithromyci No Notes: Jaron feli n 5-17 (Same As: l 22:00: Zithromax Kirby 00 IV) gabapentin No Notes: Memor ia 5-17 (Same as: l 22:00: Neurontin) Violet 00 Flexeril No Notes: Memoria 5-17 (Same As: l 20:38: Flexeril) Violet 00 Potassium No Notes: Memori a Chloride 5-17 MUST be l 20:00: Diluted Kirby 00 before use (Same as: KCl) MEDICATION WASTE Product Size: 20 mEq Product Wasted: ___ mEq Potassium No Notes: Memori a Chloride 5-17 Infuse at l 18:00: a rate of Violet 00 10 mEq/hr. (Same as: KCL) Potassium No Notes: Memori a Chloride 5-17 (Same as: l 15:28: K-Dur 20) Violet 00 "Do Not Crush" Give with food and full glass of water For patients unable to swallow tablet, dissolve in one half glass of water. Allow about 2 minutes for the tablets to disintegra te. Stir before giving to prepare slurry and administer . Please exclude Patient s with feeding tube less than 14 Lao (Dobhoff, J-tube etc) and pediatric and patients. sacubitril No Notes: Memor ia 24 MG / 5-17 (Same as: l valsartan 02:00: Entresto) Her blancas 26 MG Oral 00 Avoid in Tablet patients [Entresto] with history of angioedema due to ALEJANDRO inhibitor or ARB therapy. Do not use concomitan tly or within 36 hours of ALEJANDRO inhibitors Potassium No Notes: Memori a Chloride 5-16 Infuse at l 23:00: a rate of Violet 00 10 mEq/hr. (Same as: KCL) Rocephin + No Notes: Memor ia Sodium 5-16 (Same As: l Chloride 23:00: Rocephin). Her blancas 0.9% IV 100 00 Use with mL 100 mL NS and infuse over 30 min MEDICATION WASTE Product Size: 1000 mg Product Wasted: ___ mg NS 1,000 mL No 1,000 mL, M emoria 5-16 Rate: 40 l 22:34: ml/hr, Kirby 00 Infuse over: 25 hr, Route: IV, Dosing Weight 56.006 kg, Total Volume: 1,000, Start date: 03/09/21 17:34:00 CDT, Duration: 30 day, Stop date: 04/08/21 17:33:00 CDT, 1.6, m2, 0 Potassium No Notes: Memori a Chloride 5-16 MUST be l 22:32: Diluted Kirby 00 before use (Same as: KCl) MEDICATION WASTE Product Size: 20 mEq Product Wasted: ___ mEq Potassium No 10 mEq, Memor ia Chloride 5-16 PO, BID, 0 l 19:25: Refill(s) Kirby 00 Vitamin B12 Yes 1,000 Memor ia 5-16 microgram, l 19:25: PO, Daily, Violet 00 0 Refill(s) Hydroxychlo No 200 mg, Mem oria roquine 5-16 PO, Daily, l 19:24: 0 Kirby 00 Refill(s) Synthroid Yes 50 Memoria 5-16 microgram, l 19:22: PO, Daily, Violet 00 0 Refill(s) gabapentin No 300, PO, Mem oria 5-16 BID, 0 l 19:22: Refill(s), Violet 00 3 CAPSULES Allopurinol No 300 mg, Mem oria 5-16 PO, Daily, l 19:21: 0 Kirby 00 Refill(s) Azithromyci No Notes: Jaron feli n 5-16 (Same As: l 17:49: Zithromax Violet 00 IV) Rocephin + No Notes: Memor ia Sodium 5-16 (Same As: l Chloride 16:22: Rocephin). Her blancas 0.9% IV 250 00 Use with mL 100 mL NS and infuse over 30 min MEDICATION WASTE Product Size: 1000 mg Product Wasted: ___ mg Azithromyci No Notes: Jaron feli n 5-16 Take 1 l 16:22: hour Kirby 00 before or 2 hours after meals. (Same As: Zithromax) NS 1,000 mL No 1,000 mL, M emoria 5-16 Rate: 75 l 16:11: ml/hr, Infuse over: 13.3 hr, Route: IV, Dosing Weight 61.364 kg, Total Volume: 1,000, Start date: 03/09/21 11:11:00 CDT, Duration: 30 day, Stop date: 04/08/21 11:10:00 CDT, 1.68, m2, 0 Dextrose No 12.5 gm, Memor ia 50% Syringe 5-16 25 mL, l (D50W) 16:07: Route: IVP, Drug Form: INJ, Dosing Weight 61.364, kg, PRN, PRN Blood Glucose Results, Start date: 03/09/21 11:07:00 CDT, Duration: 30 day, Stop date: 04/08/21 11:06:00 CDT, 0 Glucagon No 1 mg, Memoria 5-16 Route: IM, l 16:07: Drug form: PDR/INJ, PRN, Dosing Weight 61.364, kg, PRN Blood Glucose Results, Start date: 03/09/21 11:07:00 CDT, Duration: 30 day, Stop date: 04/08/21 11:06:00 CDT, 0 Ondansetron No Notes: Jaron feli 5-16 (Same as: l 16:07: Zofran ODT) Acetaminoph No Notes: Do M emoria en 5-16 not exceed l 16:07: 4 gm/day. Violet 00 (Same as: Tylenol) Potassium No Notes: Memori a Chloride 5-16 (Same as: l 16:07: K-Dur 20) "Do Not Crush" Give with food and full glass of water For patients unable to swallow tablet, dissolve in one half glass of water. Allow about 2 minutes for the tablets to disintegra te. Stir before giving to prepare slurry and administer . Please exclude Patient s with feeding tube less than 14 Lao (Dobhoff, J-tube etc) and pediatric and patients. potassium No Notes: Memori a phosphate-s 5-16 (Same as: l odium 16:07: Phos-NaK) Kriby phosphate 00 Each 1.5 250 mg-280 gm pkt has mg-160 mg 250mg oral powder phosphorou for s. Mix reconstitut w/2.5oz ion water and stir. potassium No Notes: Memori a phosphate 5-16 (Same as: l 16:07: K Kirby 00 Phosphate. ) Do not infuse phosphorou s concurrent ly in the same line as TPN or IVF that contains calcium. For double lumen central lines, phosphorou s may be infused in a separate lumen from TPN. 1 mMol phoshate has 1.47 mEq potassium Infuse over 4 hours sodium No Notes: Memoria phosphate 5-16 Infuse l 16:07: over 4 Kirby 00 hour. Do not infuse phosphorou s concurrent ly in the same line as TPN or IVF that contains calcium. For double lumen central lines, phosphorou s may be infused in a separate lumen from TPN. Magnesium No Notes: Memori a Sulfate 5-16 WASTE: F/P l 16:07: - Sink; E Violet - Municipal Trash Bin Magnesium No Notes: Memori a Oxide 5-16 (Same as: l 16:07: Mag-Ox Kirby 00 400) Magnesium oxide [id number] g elemental magnesium Dose=____m g magnesium oxide (___mg elemental magnesium) Calcium No Notes: Memoria Gluconate 5-16 WASTE: F/P l 16:07: - Sink; E Kirby - Municipal Trash Bin Potassium No Notes: Memori a Chloride 5-16 Infuse at l 16:00: a rate of Kirby 00 10 mEq/hr. (Same as: KCL) Magnesium No Notes: Memori a Sulfate 5-16 WASTE: F/P l 15:28: - Sink; E Kirby - Municipal Trash Bin Aspirin No Notes: Memoria 5-16 Take with l 15:28: food. Kirby 00 Potassium No Notes: Memori a Chloride 5-16 (Same as: l 15:28: K-Dur 20) Kirby 00 For patients unable to swallow tablet, dissolve in one half glass of water. Allow about 2 minutes for the tablets to disintegra te. Stir before giving to prepare slurry and administer . Please exclude Patient s with feeding tube less than 14 Lao (Dobhoff, J-tube etc) and pediatric and patients. Calcium 2020-0 No 500 mL, Memoria Chloride 5-16 500 ml/hr, l 0.0014 14:42: Infuse Kirby MEQ/ML / 00 Over: 1 Potassium hr, Route: Chloride IV, 500, 0.004 Drug form: MEQ/ML / INJ, ONCE, Sodium Priority: Chloride STAT, 0.103 Dosing MEQ/ML / Weight Sodium 61.364 kg, Lactate Start 0.028 date: MEQ/ML 03/09/21 Injectable 9:42:00 Solution CDT, Stop date: 03/09/21 9:42:00 CDT, 0 Calcium 2020-0 No 500 mL, Memoria Chloride 5-16 500 ml/hr, l 0.0014 14:21: Infuse Violet MEQ/ML / 00 Over: 1 Potassium hr, Route: Chloride IV, 500, 0.004 Drug form: MEQ/ML / INJ, ONCE, Sodium Priority: Chloride STAT, 0.103 Dosing MEQ/ML / Weight Sodium 61.364 kg, Lactate Start 0.028 date: MEQ/ML 03/09/21 Injectable 9:21:00 Solution CDT, Stop date: 03/09/21 9:21:00 CDT, 0 Saline No Notes: Memoria Flush 0.9% 5-16 (Same as: l 14:19: BD Posiflush) ondansetron No Route: IV, Memoria (ANES) 5-22 Drug form: l 16:36: INJ, ONCE, Stop date: 03/15/20 11:36:00 CDT lidocaine 2019- No Route: IV, Me moria (ANES) 5-22 Drug form: l 16:07: INJ, ONCE, Stop date: 03/15/20 11:07:00 CDT fentaNYL 2019-0 No Route: IV, Mem oria (ANES) 5-22 Drug form: l 16:07: INJ, ONCE, Stop date: 03/15/20 11:07:00 CDT propofol 2020-0 No Route: IV, Mem oria (ANES) - Drug form: l 16:07: INJ, ONCE, Violet 00 Stop date: 03/15/20 11:07:00 CDT dexamethaso 2019-0 No Route: IV, Memoria ne (ANES) - Drug form: l 16:07: INJ, ONCE, Violet 00 Stop date: 03/15/20 11:07:00 CDT ceFAZolin 2019-0 No Route: IV, Me moria (ANES) - Drug form: l 16:02: INJ, ONCE, Violet 00 Stop date: 03/15/20 11:02:00 CDT midazolam 2019-0 No Route: IV, Me moria (ANES) - Drug form: l 16:02: SOLN, ONCE, Stop date: 03/15/20 11:02:00 CDT Hydralazine 2019-0 No Notes: Jaron feli - (Same as: l 15:53: Apresoline ) Push over 5 minutes Labetalol 0 No 10 mg, 2 Jaron feli 5-22 mL, Route: l 15:53: IVP, Drug form: INJ, Q5Min, Dosing Weight 75, kg, PRN Elevated BP, Start date: 03/15/20 10:53:00 CDT, Duration: 5 doses or times, Stop date: 03/15/20 18:52:00 CDT, 0 Acetaminoph 2019-0 No Notes: Max Memoria en - acetaminop l 15:53: hen 4000 Violet 00 mg/day (4 gm/day). (Same as: Tylenol Extra Strength) Oxycodone 2019-0 No Notes: Memori a Hydrochlori - (Same as: l de 5 MG 15:53: Roxicodone Herm marcella Oral Tablet ) Morphine 0 No Notes: Memoria 5- (Same l 15:53: as:MORPhin Violet 00 e Sulfate) Hydromorpho 2019-0 No Notes: Jaron feli ne - Same as l 15:53: Dilaudid Meperidine 2019-0 No Notes: Memor ia - (Same as: l 15:53: Demerol) "Use Precaution in Elderly, Seizure disorders, and Renal impairment " Ondansetron No Notes: Jaron feli - (Same as: l 15:53: Zofran) MEDICATION WASTE Product Size: 4 mg Product Wasted: ___ mg Promethazin No Notes: Do M emoria e 5-22 not give l 15:53: IV push. (Same as: Phenergan) Lactated No Route: IV, Mem oria Ringers - Total l Injection 15:13: Volume: Leola nn IV (ANES) 00 1,000, 1000 mL Start date: 03/15/20 10:13:00 CDT, Stop date: 03/15/20 11:13:00 CDT potassium 2019- Yes 10 mEq = 1 Me moria chloride 10 5-18 cap, PO, l mEq oral 20:25: Daily, # Leola nn capsule, 00 30 cap, 1 extended Refill(s) release Esomeprazol Yes 40 mg = 1 M emoria e 40 MG 5-18 cap, PO, l Enteric 20:24: Daily, # Isaiah n Coated 00 30 cap, 0 Capsule Refill(s) [Nexium] Furosemide Yes 80 mg = 1 Me moria 80 MG Oral 5-18 tab, PO, l Tablet 20:22: Daily, # Kirby [Lasix] 00 30 tab, 0 Refill(s) furosemide furosemide No furosemide [place] 80 mg 80 mg 5-18 80 mg Family tablet tablet 00:00: tablet Practic 00 e fentaNYL No Route: IV, Mem oria (ANES) - Drug form: l 18:13: INJ, ONCE, Kirby 00 Stop date: 02/20/19 13:13:00 CDT fentaNYL No Route: IV, Mem oria (ANES) 4-29 Drug form: l 17:47: INJ, ONCE, Violet Stop date: 02/20/19 12:47:00 CDT morphine No Route: IV, Mem oria Sulfate - Drug form: l (ANES) 17:11: INJ, ONCE, Leola nn Stop date: 02/20/19 12:11:00 CDT rocuronium 2018-0 No Route: IV, M emoria (ANES) 02-20 Drug form: l 16:15: INJ, ONCE, Violet 00 Stop date: 02/20/19 11:15:00 CDT ondansetron 2018-0 No Route: IV, Memoria (ANES) 02-20 Drug form: l 16:10: INJ, ONCE, Kirby 00 Stop date: 02/20/19 11:10:00 CDT dexamethaso 0 No Route: IV, Memoria ne (ANES) 02-20 Drug form: l 16:10: INJ, ONCE, Violet 00 Stop date: 02/20/19 11:10:00 CDT lidocaine 2018-0 No Route: IV, Me moria (ANES) 02-20 Drug form: l 16:00: INJ, ONCE, Kirby 00 Stop date: 02/20/19 11:00:00 CDT propofol 2018-0 No Route: IV, Mem oria (ANES) 02-20 Drug form: l 16:00: INJ, ONCE, Stop date: 02/20/19 11:00:00 CDT ceFAZolin 0 No Route: IV, Me moria (ANES) 02-20 Drug form: l 15:53: INJ, ONCE, Kirby 00 Stop date: 02/20/19 10:53:00 CDT Ondansetron 2018-0 No 4 mg, Memor ia 02-20 Route: l 15:43: IVP, ONCE, Kirby Dosing Weight 84.091, kg, PRN Nausea & Vomiting, Start date: 02/20/19 10:43:00 CDT Albuterol 2018-0 No 2.49 mg, Jaron feli 0.83 MG/ML 02-20 Route: l Inhalant 15:43: NEB, PRN, Herm marcella Solution Dosing Weight 84.091, kg, PRN Respirator y Pathway, Start date: 02/20/19 10:43:00 CDT, Duration: 30 day, Stop date: 03/22/19 10:42:00 CDT Morphine 2018-0 No 2 mg, Memoria 02-20 Route: l 15:43: IVP, Kirby 00 Q5Min, Dosing Weight 84.091, kg, PRN Pain Score 4-6, Start date: 02/20/19 10:43:00 CDT, Duration: 5 doses or times, Stop date: Limited # of times Labetalol 2019-0 No 10 mg, Memori a 02-20 Route: l 15:43: IVP, Violet 00 Q5Min, Dosing Weight 84.091, kg, PRN Elevated BP, Start date: 02/20/19 10:43:00 CDT, Duration: 5 doses or times, Stop date: Limited # of times Acetaminoph 2019-0 No 1,000 mg, M emoria en 02-20 Route: PO, l 15:43: Drug form: Violet 00 TAB, ONCE, Dosing Weight 84.091, kg, PRN Pain Score 1-3, Start date: 02/20/19 10:43:00 CDT Calcium 2019-0 No 1,000 mL, Memor ia Chloride 02-20 Rate: 125 l 0.0014 15:43: ml/hr, Violet MEQ/ML / 00 Infuse Potassium over: 8 Chloride hr, Route: 0.004 IV, Dosing MEQ/ML / Weight Sodium 84.091 kg, Chloride Total 0.103 Volume: MEQ/ML / 1,000, Sodium Start Lactate date: 0.028 02/20/19 MEQ/ML 10:43:00 Injectable CDT, Solution Duration: 30 day, Stop date: 03/22/19 10:42:00 CDT, 1.97, m2 Meperidine 2018-0 No 12.5 mg, Mem oria 02-20 Route: l 15:43: IVP, Violet 00 Q30Min, Dosing Weight 84.091, kg, PRN Other -See Comment, For shivering, Start date: 02/20/19 10:43:00 CDT, Duration: 2 doses or times, Stop date: Limited # of times Glycopyrrol 2019-0 No 0.2 mg, Mem oria ate 02-20 Route: l 15:43: IVP, Violet 00 Q5Min, Dosing Weight 84.091, kg, PRN Bradycardi a, Start date: 02/20/19 10:43:00 CDT, Duration: 3 doses or times, Stop date: Limited # of times Diphenhydra 2019-0 No 12.5 mg, Me moria mine 02-20 Route: l 15:43: IVP, Drug Kirby 00 form: INJ, Q6H, Dosing Weight 84.091, kg, PRN Itching, Start date: 02/20/19 10:43:00 CDT, Duration: 30 day, Stop date: 03/22/19 10:42:00 CDT Hydralazine 2019-0 No 10 mg, Jaron feli 02-20 Route: l 15:43: IVP, Kirby 00 Q20Min, Dosing Weight 84.091, kg, PRN Elevated BP, Start date: 02/20/19 10:43:00 CDT, Duration: 2 doses or times, Stop date: Limited # of times Ephedrine 2019-0 No 5 mg, Memoria 02-20 Route: l 15:43: IVP, Violet 00 Q5Min, Dosing Weight 84.091, kg, PRN Low Blood Pressure, Start date: 02/20/19 10:43:00 CDT, Duration: 30 day, Stop date: 03/22/19 10:42:00 CDT Flumazenil 2019-0 No 0.2 mg, Jaron feli 02-20 Route: l 15:43: IVP, PRN, Kirby 00 Dosing Weight 84.091, kg, PRN Benzodiaze pine Reversal, Initial dose, Start date: 02/20/19 10:43:00 CDT, Duration: 30 day, Stop date: 03/22/19 10:42:00 CDT Hydromorpho 2019-0 No 0.5 mg, Mem oria ne 02-20 Route: l 15:43: IVP, Violet 00 Q5Min, Dosing Weight 84.091, kg, PRN Pain Score 7-10, Start date: 02/20/19 10:43:00 CDT, Duration: 4 doses or times, Stop date: Limited # of times Naloxone 2019-0 No 0.4 mg, Memori a 02-20 Route: l 15:43: IVP, Violet 00 Q2MIN, Dosing Weight 84.091, kg, PRN Narcotic Reversal, Start date: 02/20/19 10:43:00 CDT, Duration: 8 doses or times, Stop date: Limited # of times Lactated No Route: IV, Mem oria Ringers 02-20 Total l Injection 15:01: Volume: Leola nn IV (ANES) 00 1,000, 1000 mL Start date: 02/20/19 10:01:00 CDT, Stop date: 02/20/19 11:01:00 CDT ceFAZolin + No Notes: Jaron feli sterile 29 (Same As: l water 20 mL 05:00: Ancef, Herm marcella Kefzol) MEDICATION WASTE Product Size: 1000 mg Product Wasted: ___ mg Ranitidine Yes 150 mg = 1 M emoria 150 MG Oral 4-10 tab, PO, l Tablet 13:36: BID spironolact Yes 25 mg = 1 M emoria one 25 mg 4-10 tab, PO, l oral tablet 13:36: Daily Leola nn 00 Furosemide 0 Yes 40 mg = 1 Me moria 40 MG Oral 4-10 tab, PO, l Tablet 13:36: BID gabapentin Yes 900 mg = 3 M emoria 300 MG Oral 4-10 cap, PO, l Capsule 13:36: TID Kirby Slow-Mag 2018-0 Yes Slow-Mag, Jaron feli 4-10 1 tab, PO, l 13:36: TID [place] 00 Vitamin D3 2018- Yes 5,000 Memori a 5000 intl 4-10 IntlUnit = l units oral 13:36: 1 cap, PO, H ermann capsule 00 Daily levothyroxi 0 Yes 50 Memori a ne 50 mcg 4-10 microgram l (0.05 mg) 13:36: = 1 tab, Herm marcella oral tablet 00 PO, Daily allopurinol 0 Yes 300 mg = 1 Memoria 300 mg oral 4-10 tab, PO, l tablet 13:36: Daily Vitamin B12 2018- Yes 1,000 Memor ia 1000 mcg 4-10 microgram l oral tablet 13:36: = 1 tab, He rmann 00 PO, Daily Hydroxychlo 2018-0 Yes 200 mg = 1 Memoria roquine 4-10 tab, PO, l Sulfate 200 13:36: BID Isaiah n MG Oral 00 Tablet Ranitidine Yes 150 mg = 1 M emoria 150 MG Oral 4-10 tab, PO, l Tablet 13:36: BID spironolact Yes 25 mg = 1 M emoria one 25 mg 4-10 tab, PO, l oral tablet 13:36: Daily Leola nn 00 Furosemide 2019-0 Yes 40 mg = 1 Me moria 40 MG Oral 4-10 tab, PO, l Tablet 13:36: BID gabapentin Yes 900 mg = 3 M emoria 300 MG Oral 4-10 cap, PO, l Capsule 13:36: TID Slow-Mag 2018- Yes Slow-Mag, Jaron feli 4-10 1 tab, PO, l 13:36: TID Vitamin D3 Yes 5,000 Memori a 5000 intl 4-10 IntlUnit = l units oral 13:36: 1 cap, PO, H ermann capsule 00 Daily levothyroxi Yes 50 Memori a ne 50 mcg 4-10 microgram l (0.05 mg) 13:36: = 1 tab, Herm marcella oral tablet 00 PO, Daily allopurinol Yes 300 mg = 1 Memoria 300 mg oral 4-10 tab, PO, l tablet 13:36: Daily Vitamin B12 Yes 1,000 Memor ia 1000 mcg 4-10 microgram l oral tablet 13:36: = 1 tab, He rmann 00 PO, Daily Hydroxychlo Yes 200 mg = 1 Memoria roquine 4-10 tab, PO, l Sulfate 200 13:36: BID Isaiah n MG Oral 00 Tablet levothyroxi levothyroxi No levothyrox [place] ne 50 mcg ne 50 mcg 4-10 ine 50 mcg Family tablet tablet 00:00: tablet Practic 00 e Cephalexin Cephalexin Yes [place] Q0.3333D TAKE 1 UT 500 MG Oral 500 MG Oral 4-02 [place] CAPSULE 3 Physici Capsule Capsule 00:00: M.D. TIMES ans 00 DAILY UNTIL GONE. Promethazin Promethazin Yes [place] Q0.3333D TAKE 1 UT e HCl - 25 e HCl - 25 4-02 [place] TABLET 3 Physici MG Oral MG Oral 00:00: M.D. TIMES ans Tablet Tablet 00 DAILY NEEDED. cephalexin cephalexin No Q8H cephalexin [place] 500 mg 500 mg 01-24 500 mg Family capsule capsule 00:00: capsule Prac tic every 8 every 8 00 every 8 e hours by hours by hours by oral route. oral route. oral route. promethazin promethazin No Q8H promethazi Clarice e 25 mg e 25 mg 02 ne 25 mg Famil y tablet tablet 00:00: tablet Practic every 8 every 8 00 every 8 e hours by hours by hours by oral route. oral route. oral route. Physical Yes See Memoria Therapy 11-24 Instructio l 18:50: ns, MISC, Kirby ONCALL, Evaluate and Treat ___ times per week for ____ weeks, # 1 ea, 0 Refill(s) potassium No 1.45 gm, Jaron feli phosphate 11-24 Route: PO, l 15:00: Daily, Violet 00 Dosing Weight 82, kg, Start date: 11/24/18 9:00:00 [employer], Duration: 30 day, Stop date: 12/23/18 9:00:00 [employer] potassium No Notes: Memori a phosphate-s 11-24 (Same as: l odium 15:00: Phos-NaK) Violet phosphate Each 1.5 gm pkt has 250mg phosphorou s. Mix w/2.5oz water and stir. heparin No Notes: Memoria 11-23 porcine l 22:00: heparin [place] 00 NS + KCL No Notes: Memoria 20mEq/L 11-23 PREMIX IV l 1000ml 15:22: - Do Not Kirby (Premix) 00 Alter 1,000 mL WASTE: F/P - Sink; E - Municipal Trash Bin Hydroxychlo No Notes: Jaron feli roquine 11-23 (Same as: l Sulfate 200 15:00: Plaquenil) Violet MG Oral 00 Hydroxychl Tablet oroquine [Plaquenil] sulfate 200 mg = 155 mg hydroxychl oroquine base. If treating malaria, verify dose as salt vs. base per CDC guideline K-Dur 20 No Notes: Memoria 11-22 (Same as: l 23:21: K-Dur 20) Violet "Do Not Crush" Give with food and full glass of water For patients unable to swallow tablet, dissolve in one half glass of water. Allow about 2 minutes for the tablets to disintegra te. Stir before giving to prepare slurry and administer . Please exclude Patient s with feeding tube less than 14 [place] (Dobhoff, J-tube etc) and pediatric and patients. NS + KCL No Notes: Memoria 20mEq/L 11-22 PREMIX IV l 1000ml 23:21: - Do Not Kirby (Premix) 00 Alter 1,000 mL WASTE: F/P - Sink; E - Municipal Trash Bin NS + KCL No Notes: Memoria 20mEq/L 11-22 PREMIX IV l 1000ml 15:29: - Do Not Violet (Premix) 00 Alter 1,000 mL WASTE: F/P - Sink; E - Municipal Trash Bin Allopurinol No Notes: Jaron feli 11-22 (Same as: l 15:00: Zyloprim) Vitamin B12 No Notes: Jaron feli 11-22 (Same As: l 15:00: Vitamin Violet 00 B-12) Hydroxychlo No Notes: Jaron feli roquine 11-22 (Same as: l Sulfate 200 15:00: Plaquenil) Violet MG Oral 00 Hydroxychl Tablet oroquine [Plaquenil] sulfate 200 mg = 155 mg hydroxychl oroquine base. If treating malaria, verify dose as salt vs. base per CDC guideline Ranitidine No 150 mg, 1 Me moria 150 MG Oral 11-22 cap, l Capsule 15:00: Route: PO, Herm Drug form: CAP, BID, Dosing Weight 82, kg, Start date: 11/22/18 9:00:00 [employer], Duration: 30 day, Stop date: 12/21/18 17:00:00 [employer] famotidine No Notes: Memor ia 11-22 (Same as: l 15:00: Pepcid) Potassium No Notes: Memori a Chloride 11-22 (Same as: l 12:43: K-Dur 20) Kirby 00 "Do Not Crush" Give with food and full glass of water For patients unable to swallow tablet, dissolve in one half glass of water. Allow about 2 minutes for the tablets to disintegra te. Stir before giving to prepare slurry and administer . Please exclude Patient s with feeding tube less than 14 [place] (Dobhoff, J-tube etc) and pediatric and patients. Thyroxine 2019-0 No Notes: Memori a 1-29 Take 1 l 12:30: hour Violet 00 before or 2 hours after meal; Enteral feeds may interefere with the absorption of this medication .(Same as:Levothr oid, Synthroid) Dextrose 2018-0 No 12.5 gm, Memor ia 50% Syringe 11-22 25 mL, l 09:53: Route: Kirby 00 IVP, Drug Form: INJ, Dosing Weight 82, kg, PRN, PRN Blood Glucose Results, Start date: 11/22/18 3:53:00 [employer], Duration: 30 day, Stop date: 12/22/18 3:52:00 [employer] Glucagon 2018- No 1 mg, Memoria 11-22 Route: IM, l 09:53: Drug form: Violet 00 PDR/INJ, PRN, Dosing Weight 82, kg, PRN Blood Glucose Results, Start date: 11/22/18 3:53:00 [employer], Duration: 30 day, Stop date: 12/22/18 3:52:00 [employer] gabapentin 2019-0 Yes 300 mg, Jaron feli -29 PO, TID, l 07:48: take 3 Violet 00 tabs TID, 0 Refill(s) Hydroxychlo 2019-0 Yes 200 mg = 1 Memoria roquine 1-29 tab, PO, l Sulfate 200 07:48: BID, 0 Herm marcella MG Oral 00 Refill(s) Tablet [Plaquenil] Slow-Mag 2019-0 No 1 tab, PO, Mem oria Reformulate -29 Daily, 0 l d Nov 2011 07:48: Refill(s) He rmann 00 Sodium 2019-0 No 1,000 mL, Memori a Chloride 11-22 Rate: 250 l 0.9% IV 05:42: ml/hr, Kirby 1,000 mL 00 Infuse over: 4 hr, Route: IV, Dosing Weight 72.727 kg, Total Volume: 1,000, Start date: 11/21/18 23:42:00 [employer], Duration: 30 day, Stop date: 12/21/18 23:41:00 [employer], 1.86, m2 Sodium No 1,000 mL, Memori a Chloride 11-22 1000 l 0.9% 05:41: ml/hr, Violet (Bolus) IV 00 Infuse Over: 1 hr, Route: IV, 1,000, Drug form: INJ, ONCE, Priority: STAT, Dosing Weight 72.727 kg, Start date: 11/21/18 23:41:00 [employer], Stop date: 11/21/18 23:41:00 [employer] Furosemide No Notes: Memor ia 11-22 (Same as: l 05:41: Lasix) Violet MEDICATION WASTE Product Size: 40 mg Product Wasted: ___ mg Saline No Notes: Memoria Flush 0.9% 11-22 (Same as: l 00:19: BD Violet 00 Posiflush) Ranitidine Yes 150 mg = 1 M emoria 150 MG Oral 4-12 cap, PO, l Capsule 13:10: BID, # 60 Leola nn 00 cap, 0 Refill(s) tramadol 2016-10 Yes 50 mg = 1 Jaron feli hydrochlori 1-18 tab, PO, l de 50 MG 18:49: Q6H, PRN Leola nn Oral Tablet 00 Pain Score 1-3, X 10 day, # 40 tab, 0 Refill(s) methocarbam 2016-10 Yes 500 mg = 1 Memoria ol 500 mg 1-18 tab, PO, l oral tablet 18:49: TID, PRN He rmann 00 Muscle Spasms, X 7 day, # 21 tab, 0 Refill(s) methocarbam 2016-10 No 500 mg = 1 Memoria ol 500 mg 1-18 tab, PO, l oral tablet 18:27: TID, PRN He rmann 00 Muscle Spasms, # 21 tab, 0 Refill(s) tramadol 2016-10 No 50 mg = 1 Jaron feli hydrochlori 1-18 tab, PO, l de 50 MG 18:27: Q6H, PRN Leola nn Oral Tablet 00 Pain Score 1-3, # 30, 0 Refill(s) methocarbam methocarbam 2016-10 No methocarba [place] ol 500 mg ol 500 mg 1-18 mol 500 mg Family tablet tablet 00:00: tablet Practic 00 e Enoxaparin 2016-10 No Notes: Memor ia 1-17 (Same as: l 11:00: Lovenox) gabapentin 2016-10 No Notes: Memor ia 300 MG Oral -17 (Same as: l Capsule 06:00: Neurontin) Ofirmev 2016-10 No Notes: Memoria 1-17 Infuse l 00:00: over 15 minutes Do not exceed 4gm/day of acetaminop hen MEDICATION WASTE Product Size: 1000 mg Product Wasted: ___ mg Naprosyn 2016-10 No Notes: Memoria 1-16 (Same as: l 23:00: Naprosyn) Take with food. Entereg 2016-10 No Notes: Memoria -16 Same as: l 23:00: Entereg Maximum of 15 doses Alert Restricted medication Alvimopan (Entergen) order form must be completed prior to dispensing . Methocarbam 2016-10 No Notes: Jaron feli ol -16 (Same l 23:00: as:Robaxin ) tramadol 2016-10 No Notes: Not Mem oria hydrochlori -16 to exceed l de 50 MG 22:54: 400mg/day. Her blancas Oral Tablet (Same As: Ultram) Ondansetron 2016-10 No Notes: Jaron feli 1-16 (Same as: l 22:54: Zofran) MEDICATION WASTE Product Size: 4 mg Product Wasted: ___ mg Hydromorpho 2016-10 No Notes: Jaron feli ne -16 Same as l 22:54: Dilaudid Calcium 2016-10 No 1,000 mL, Memor ia Chloride -16 Rate: 50 l 0.0014 22:54: ml/hr, MEQ/ML / 00 Infuse Potassium over: 20 Chloride hr, Route: 0.004 IV, Dosing MEQ/ML / Weight Sodium 73.636 kg, Chloride Total 0.103 Volume: MEQ/ML / 1,000, Sodium Start Lactate date: 0.028 09/09/17 MEQ/ML 16:54:00 Injectable [employer], Solution Duration: 30 day, Stop date: 10/09/17 16:53:00 [employer], 1.87, m2 fentaNYL 2016-10 No Route: IV, Mem oria (ANES) 11-09 Drug form: l 22:48: INJ, ONCE, Kirby 00 Stop date: 09/09/17 16:48:00 [employer] ondansetron 2016-10 No Route: IV, Memoria (ANES) 11-09 Drug form: l 22:48: INJ, ONCE, Kirby 00 Stop date: 09/09/17 16:48:00 [employer] sugammadex 2016-10 No Route: IV, M emoria (ANES) 11-09 Drug form: l 22:48: SOLN, Violet 00 ONCE, Stop date: 09/09/17 16:48:00 [employer] dexamethaso 2016-10 No Route: IV, Memoria ne (ANES) 11-09 Drug form: l 21:22: INJ, ONCE, Violet Stop date: 09/09/17 15:22:00 [employer] Albuterol 2016-10 No 2.49 mg, Jaron feli 0.83 MG/ML 11-09 Route: l Inhalant 19:27: NEB, PRN, Herm marcella Solution 00 Dosing Weight 73.636, kg, PRN Respirator y Protocol, Start date: 09/09/17 13:27:00 [employer], Duration: 30 day, Stop date: 10/09/17 13:26:00 [employer] Promethazin 2016-10 No 6.25 mg, Me moria e 11-09 Route: l 19:27: IVPB, Violet 00 ONCE, Dosing Weight 73.636, kg, PRN Nausea & Vomiting, Start date: 09/09/17 13:27:00 [employer] Flumazenil 2016-10 No 0.2 mg, Jaron feli 11-09 Route: l 19:27: IVP, PRN, Kirby 00 Dosing Weight 73.636, kg, PRN Benzodiaze pine Reversal, Initial dose, Start date: 09/09/17 13:27:00 [employer], Duration: 30 day, Stop date: 10/09/17 13:26:00 [employer] Diphenhydra 2016-10 No 12.5 mg, Me moria mine 11-09 Route: l 19:27: IVP, Drug Kirby 00 form: INJ, Q6H, Dosing Weight 73.636, kg, PRN Itching, Start date: 09/09/17 13:27:00 [employer], Duration: 30 day, Stop date: 10/09/17 13:26:00 [employer] Meperidine 2016-10 No 12.5 mg, Mem oria 11-09 Route: l 19:27: IVP, Violet 00 Q30Min, Dosing Weight 73.636, kg, PRN Other -See Comment, For shivering, Start date: 09/09/17 13:27:00 [employer], Duration: 2 doses or times, Stop date: Limited # of times Naloxone 2016-10 No 0.4 mg, Memori a 11-09 Route: l 19:27: IVP, Kirby 00 Q2MIN, Dosing Weight 73.636, kg, PRN Narcotic Reversal, Start date: 09/09/17 13:27:00 [employer], Duration: 8 doses or times, Stop date: Limited # of times Ondansetron 2016-10 No 4 mg, Memor ia 11-09 Route: l 19:27: IVP, ONCE, Violet 00 Dosing Weight 73.636, kg, PRN Nausea & Vomiting, Start date: 09/09/17 13:27:00 [employer] Calcium 2016-10 No 1,000 mL, Memor ia Chloride 11-09 Rate: 125 l 0.0014 19:27: ml/hr, Violet MEQ/ML / 00 Infuse Potassium over: 8 Chloride hr, Route: 0.004 IV, Dosing MEQ/ML / Weight Sodium 73.636 kg, Chloride Total 0.103 Volume: MEQ/ML / 1,000, Sodium Start Lactate date: 0.028 09/09/17 MEQ/ML 13:27:00 Injectable [employer], Solution Duration: 30 day, Stop date: 10/09/17 13:26:00 [employer], 1.87, m2 Labetalol 2016-10 No 10 mg, Memori a 16 Route: l 19:27: IVP, Violet 00 Q5Min, Dosing Weight 73.636, kg, PRN Elevated BP, Start date: 09/09/17 13:27:00 [employer], Duration: 5 doses or times, Stop date: Limited # of times Morphine 2016-10 No 2 mg, Memoria 11-09 Route: l 19:27: IVP, Violet 00 Q5Min, Dosing Weight 73.636, kg, PRN Pain Score 4-6, Start date: 09/09/17 13:27:00 [employer], Duration: 5 doses or times, Stop date: Limited # of times Hydromorpho 2016-10 No 0.5 mg, Mem oria ne 11-09 Route: l 19:27: IVP, Kirby 00 Q5Min, Dosing Weight 73.636, kg, PRN Pain Score 7-10, Start date: 09/09/17 13:27:00 [employer], Duration: 4 doses or times, Stop date: Limited # of times acetaminoph 2016-10 No Route: IV, Memoria en (ANES) 11-09 Drug form: l 19:25: INJ, ONCE, Stop date: 09/09/17 13:25:00 [employer] cefOXitin 2016-10 No Route: IV, Me moria (ANES) 11-09 Drug form: l 19:25: INJ, ONCE, Stop date: 09/09/17 13:25:00 [employer] rocuronium 2016-10 No Route: IV, M emoria (ANES) 11-09 Drug form: l 19:05: INJ, ONCE, Stop date: 09/09/17 13:05:00 [employer] phenylephri 2016-10 No Route: IV, Memoria ne (ANES) 11-09 Drug form: l 18:35: INJ, ONCE, Stop date: 09/09/17 12:35:00 [employer] cefOXitin 2016-10 No Route: IV, Me moria (ANES) 11-09 Drug form: l 18:25: INJ, ONCE, Stop date: 09/09/17 12:25:00 [employer] midazolam 2016-10 No Route: IV, Me moria (ANES) 11-09 Drug form: l 18:19: SOLN, ONCE, Stop date: 09/09/17 12:19:00 [employer] lidocaine 2016-10 No Route: IV, Me moria (ANES) 11-09 Drug form: l 18:14: INJ, ONCE, Stop date: 09/09/17 12:14:00 [employer] propofol 2016-10 No Route: IV, Mem oria (ANES) 1-16 Drug form: l 18:14: INJ, ONCE, Stop date: 09/09/17 12:14:00 [employer] succinylcho 2016-10 No Route: IV, Memoria line (ANES) - Drug form: l 18:14: INJ, ONCE, Stop date: 09/09/17 12:14:00 [employer] fentaNYL 2016-10 No Route: IV, Mem oria (ANES) -16 Drug form: l 18:09: INJ, ONCE, Stop date: 09/09/17 12:09:00 [employer] rocuronium 2016-10 No Route: IV, M emoria (ANES) - Drug form: l 17:33: INJ, ONCE, Stop date: 09/09/17 11:33:00 [employer] Sodium 2016-10 No Route: IV, Memor ia Chloride -16 Total l 0.9% IV 16:20: Volume: Kirby (ANES) 1000 00 1,000, mL Start date: 09/09/17 10:20:00 [employer], Stop date: 09/09/17 11:20:00 [employer] Lactated 2016-10 No Route: IV, Mem oria Ringers -16 Total l Injection 15:58: Volume: Leola nn IV (ANES) 00 1,000, 1000 mL Start date: 09/09/17 9:58:00 [employer], Stop date: 09/09/17 10:58:00 [employer] Exparel 2016-10 No Notes: Memoria -16 (Same as: l 15:00: Exparel) NOT FOR IV use Postoperat marisol analgesia: Infiltrati on (local): Dose is based on surgical site and volume required to cover the area (in general, the maximum total dose is 266 mg). Bunionecto my: 7 mL into the tissues surroundin g the osteotomy and 1 mL into the subcutaneo us tissue of the surgical site (total dose = 8 mL [106 mg]) Hemorrhoid ectomy: 30 mL (20 mL vial diluted with 10 mL NS) divided and administer ed as 6 injections of 5 mL each (total dose = 30 mL [266 mg]) Aleve 2016-10 No Notes: Memoria 1-16 (Same as: l 12:00: Aleve) Kirby 00 Take with food. tramadol 50 2016-10 No Notes: Not Memoria mg oral -16 to exceed l tablet 12:00: 400mg/day. Leola nn 00 (Same As: Ultram) Mefoxin + 2016-10 No Notes: Memori a sterile -16 (Same As: l water 20 mL 12:00: Mefoxin) He rmann 00 MEDICATION WASTE Product Size: 2000 mg Product Wasted: ___ mg Neurontin 2016-10 No Notes: Memori a -16 (Same as: l 12:00: Neurontin) Kirby 00 Entereg 2016-10 No Notes: Memoria 1-16 Same as: l 12:00: Entereg Kirby 00 Maximum of 15 doses Alert Restricted medication Alvimopan (Entergen) order form must be completed prior to dispensing . potassium Yes 10 mEq = 1 Me moria chloride 10 9-07 cap, PO, l mEq oral 12:56: Daily, # Leola nn capsule, 00 30 cap, 1 extended Refill(s) release 24 HR Yes 50 mg = 1 Memoria mirabegron 9-07 tab, PO, l 50 MG 12:56: Daily, # Kirby Extended 00 30 tab, 0 Release Refill(s) Tablet [Myrbetriq] spironolact Yes 50 mg = 1 M emoria one 50 mg 9-07 tab, PO, l oral tablet 12:56: Daily, # He rmann 00 30 tab, 1 Refill(s) Furosemide Yes 40 mg = 1 Me moria 40 MG Oral 9-07 tab, PO, l Tablet 12:56: Daily, # Violet 00 30 tab, 0 Refill(s) gabapentin Yes 600 mg = 2 M emoria 300 MG Oral 9-07 cap, PO, l Capsule 12:56: TID, 0 Kirby 00 Refill(s) Vitamin B12 Yes 1,000 Memor ia 1000 mcg 9-07 microgram l oral tablet 12:56: = 1 tab, He rmann 00 PO, Daily, # 30 tab, 0 Refill(s) levothyroxi Yes 50 Memori a ne 50 mcg 9-07 microgram l (0.05 mg) 12:56: = 1 tab, Herm marcella oral tablet 00 PO, Daily, # 30 tab, 0 Refill(s) Docusate Yes 100 mg = 1 Mem oria Sodium 100 907 cap, PO, l MG Oral 12:56: BID, # 60 Leola nn Capsule 00 cap, 1 [Colace] Refill(s) allopurinol Yes 300 mg = 1 Memoria 300 mg oral 07-01 tab, PO, l tablet 12:56: Daily, # Violet 00 30 tab, 0 Refill(s) allopurinol allopurinol No allopurino [facility] 300 mg 300 mg 07-01 l 300 mg Family tablet tablet 00:00: tablet Practic 00 e cyanocobala cyanocobala No cyanocobal [facility] min (vit min (vit 07-01 garner (vit Fa kendall ) 1,000 B) 1,000 00:00: ) Practic mcg tablet mcg tablet 00 1,000 mcg e tablet spironolact spironolact No spironolac [facility] one 50 mg one 50 mg 07-01 tone 50 mg Family tablet tablet 00:00: tablet Practic 00 e Allopurinol Allopurinol Yes U T 300 MG Oral 300 MG Oral P hysici Tablet Tablet ans Levothyroxi Levothyroxi Yes U T ne Sodium ne Sodium Physi ci POWD POWD ans Furosemide Furosemide Yes [place] TABS TABS Physici ans raNITIdine raNITIdine Yes [place] 150 Max 150 Max Physici Strength Strength ans TABS TABS Hydroxychlo Hydroxychlo Yes U T roquine roquine Physici Sulfate 200 Sulfate 200 a ns MG Oral MG Oral Tablet Tablet 12 3000 B-12 3000 Yes UT MCG Oral MCG Oral Physici Lozenge Lozenge ans alprazolam alprazolam No alprazolam [facility] 0.5 mg 0.5 mg 0.5 mg Family tablet TAKE tablet TAKE tablet Practic 1 TABLET BY 1 TABLET BY TAKE 1 e MOUTH TWICE MOUTH TWICE TABLET BY DAILY DAILY MOUTH TWICE DAILY BD Syringe BD Syringe No BD Syringe [facility] Catheter Catheter Catheter Fam kelly Tip 50 mL Tip 50 mL Tip 50 mL Practic USE SYRINGE USE SYRINGE USE e WITH SALINE WITH SALINE SYRINGE TO IRRIGATE TO IRRIGATE WITH BLADDER BLADDER SALINE TO DAILY DAILY IRRIGATE BLADDER DAILY esomeprazol esomeprazol No esomeprazo [place] e magnesium e magnesium le F amily 40 mg 40 mg magnesium Practic capsule,del capsule,del 40 mg e ayed ayed capsule,de release release layed TAKE 1 TAKE 1 release CAPSULE BY CAPSULE BY TAKE 1 MOUTH EVERY MOUTH EVERY CAPSULE BY DAY IN THE DAY IN THE MOUTH MORNING MORNING EVERY DAY IN THE MORNING furosemide furosemide No furosemide [facility] 20 mg 20 mg 20 mg Family tablet TAKE tablet TAKE tablet Practic 1 TABLET BY 1 TABLET BY TAKE 1 e MOUTH EVERY MOUTH EVERY TABLET BY DAY DAY MOUTH EVERY DAY furosemide furosemide No furosemide [facility] 40 mg 40 mg 40 mg Family tablet tablet tablet Practic e gabapentin gabapentin No gabapentin [facility] 300 mg 300 mg 300 mg Family capsule capsule capsule Practi c TAKE 2 TAKE 2 TAKE 2 e CAPSULES BY CAPSULES BY CAPSULES MOUTH TWICE MOUTH TWICE BY MOUTH DAILY DAILY TWICE DAILY hydroxychlo hydroxychlo No hydroxychl [facility] roquine 200 roquine 200 oroquine Family mg tablet mg tablet 200 mg Pra ctic TAKE 1 TAKE 1 tablet e TABLET BY TABLET BY TAKE 1 MOUTH EVERY MOUTH EVERY TABLET BY DAY DAY MOUTH EVERY DAY levothyroxi levothyroxi No levothyrox [facility] ne (bulk) ne (bulk) ine (bulk) Family 100 % 100 % 100 % Practic powder powder powder e mupirocin 2 mupirocin 2 No mupirocin [place] % topical % topical 2 % Famil y ointment ointment topical Prac tic APPLY A APPLY A ointment e SMALL SMALL APPLY A AMOUNT TO AMOUNT TO SMALL THE THE AMOUNT TO AFFECTED AFFECTED THE AREA THREE AREA THREE AFFECTED TIMES DAILY TIMES DAILY AREA THREE TIMES DAILY sodium sodium No sodium [facility] chloride chloride chloride Fam kelly 0.9 % 0.9 % 0.9 % Practic irrigation irrigation irrigation e solution solution solution USE 30 ML USE 30 ML USE 30 ML TO IRRIGATE TO IRRIGATE TO BLADDER BLADDER IRRIGATE DAILY DAILY BLADDER DAILY BD Syringe BD Syringe No BD Syringe [facility] Catheter Catheter Catheter Fam kelly Tip 50 mL Tip 50 mL Tip 50 mL Practic USE SYRINGE USE SYRINGE USE e WITH SALINE WITH SALINE SYRINGE TO IRRIGATE TO IRRIGATE WITH BLADDER BLADDER SALINE TO DAILY DAILY IRRIGATE BLADDER DAILY fluocinolon fluocinolon No fluocinolo [facility] e 0.01 % e 0.01 % ne 0.01 % Fa [facility] scalp oil scalp oil scalp oil Practic and shower and shower and shower e cap cap cap furosemide furosemide No furosemide [facility] 40 mg 40 mg 40 mg Family tablet tablet tablet Practic e gabapentin gabapentin gabapentin [facility] 300 mg 300 mg 300 mg Family capsule capsule capsule Practi c TAKE 3 TAKE 3 TAKE 3 e CAPSULES BY CAPSULES BY CAPSULES MOUTH TWICE MOUTH TWICE BY MOUTH A DAY A DAY TWICE A DAY hydroxychlo hydroxychlo No hydroxychl [facility] roquine 200 roquine 200 oroquine Family mg tablet mg tablet 200 mg Pra ctic TAKE 1 TAKE 1 tablet e TABLET BY TABLET BY TAKE 1 MOUTH TWICE MOUTH TWICE TABLET BY DAILY DAILY MOUTH TWICE DAILY ketoconazol ketoconazol No ketoconazo [facility] e 2 % e 2 % le 2 % Family topical topical topical Practi c cream APPLY cream APPLY cream e TOPICALLY TOPICALLY APPLY TO THE TO THE TOPICALLY AFFECTED AFFECTED TO THE AREA EVERY AREA EVERY AFFECTED DAY DAY AREA EVERY DAY midodrine 5 midodrine 5 No midodrine [facility] mg tablet mg tablet 5 mg Famil y TAKE 2 TAKE 2 tablet Practic TABLET BY TABLET BY TAKE 2 e MOUTH EVERY MOUTH EVERY TABLET BY 8 HOURS 8 HOURS MOUTH EVERY 8 HOURS mupirocin 2 mupirocin 2 No mupirocin [facility] % topical % topical 2 % Famil y ointment ointment topical Prac tic APPLY A APPLY A ointment e SMALL SMALL APPLY A AMOUNT TO AMOUNT TO SMALL THE THE AMOUNT TO AFFECTED AFFECTED THE AREA THREE AREA THREE AFFECTED TIMES DAILY TIMES DAILY AREA THREE PRN PRN TIMES DAILY PRN sodium sodium [facility] chloride chloride chloride Fam kelly 0.9 % 0.9 % 0.9 % Practic irrigation irrigation irrigation e solution solution solution USE 30 ML USE 30 ML USE 30 ML TO IRRIGATE TO IRRIGATE TO BLADDER BLADDER IRRIGATE DAILY DAILY BLADDER DAILY spironolact spironolact spironolac [facility] one 25 mg one 25 mg tone 25 mg Family tablet TAKE tablet TAKE tablet Practic 1 TABLET BY 1 TABLET BY TAKE 1 e MOUTH EVERY MOUTH EVERY TABLET BY DAY DAY MOUTH EVERY DAY Synthroid Synthroid Synthroid [facility] 50 mcg 50 mcg 50 mcg Family tablet TAKE tablet TAKE tablet Practic 1 TABLET BY 1 TABLET BY TAKE 1 e MOUTH EVERY MOUTH EVERY TABLET BY DAY IN THE DAY IN THE MOUTH MORNING MORNING EVERY DAY IN THE MORNING Immunizations Ordered Immunization Filled Immunization Date Status Commen ts Source Name Name influenza, influenza, 2022-07-23 [facility] recombinant, recombinant, 15:21:00 Practice quadrIvalent,injecta quadrIvalent,inject ble, preservative able, preservative free free influenza, influenza, 2021-10-14 Completed [facility] injectable, injectable, 00:00:00 Practice quadrivalent quadrivalent COVID-19, mRNA, COVID-19, mRNA, 2021-10-14 Completed [facility] LNP-S, PF, 30 LNP-S, PF, 30 00:00:00 Practice mcg/0.3 mL dose mcg/0.3 mL dose (Pfizer-BioNTech) (Pfizer-BioNTech) influenza, influenza, 2021-10-14 Completed [facility] Family injectable, injectable, 00:00:00 Practice quadrivalent quadrivalent COVID-19, mRNA, COVID-19, mRNA, 2021-10-14 Completed [facility] LNP-S, PF, 30 LNP-S, PF, 30 00:00:00 Practice mcg/0.3 mL dose mcg/0.3 mL dose (Pfizer-BioNTech) (Pfizer-BioNTech) COVID-19, mRNA, COVID-19, mRNA, 2020-12-30 Completed [facility] LNP-S, PF, 30 LNP-S, PF, 30 00:00:00 Practice mcg/0.3 mL dose mcg/0.3 mL dose (Pfizer-BioNTech) (Pfizer-BioNTech) COVID-19, mRNA, COVID-19, mRNA, 2020-12-30 Completed [facility] LNP-S, PF, 30 LNP-S, PF, 30 00:00:00 Practice mcg/0.3 mL dose mcg/0.3 mL dose (Pfizer-BioNTech) (Pfizer-BioNTech) Pfizer-BioNTech 2020-12-08 Completed [place] [facility] COVID-19 Vacc 30 10:57:00 MCG/0.3ML Intramuscular Suspension COVID-19, mRNA, COVID-19, mRNA, 2020-12-08 Completed [facility] LNP-S, PF, 30 LNP-S, PF, 30 00:00:00 Practice mcg/0.3 mL dose mcg/0.3 mL dose (Pfizer-BioNTech) (Pfizer-BioNTech) COVID-19, mRNA, COVID-19, mRNA, 2020-12-08 Completed [facility] LNP-S, PF, 30 LNP-S, PF, 30 00:00:00 Practice mcg/0.3 mL dose mcg/0.3 mL dose (Pfizer-BioNTech) (Pfizer-BioNTech) pneumococcal 2018-11-24 Completed [facility] 13-valent vaccine 18:16:00 pneumococcal pneumococcal 2018-11-24 Completed [facility] kendall conjugate PCV 13 conjugate PCV 13 00:00:00 Pr actice pneumococcal pneumococcal 2018-11-24 [address] [facility] conjugate PCV 13 conjugate PCV 13 00:00:00 Pr actice Vital Signs Vital Name Observation Time Observation Value Comments Source BP Diastolic 2022-07-23 00:00:00 58 mm[Hg] [facility] Height 2022-07-23 00:00:00 64 [in_i] [facility] BMI (Body Mass Index) 2022-07-23 00:00:00 21.5 kg/m2 [facility] BP Systolic 2022-07-23 00:00:00 98 mm[Hg] [facility] Body Weight 2022-07-23 00:00:00 125 [lb_av] [facility] BP Diastolic 2021-12-10 00:00:00 64 mm[Hg] [facility] Height 2021-12-10 00:00:00 64 [in_i] [facility] BP Systolic 2021-12-10 00:00:00 100 mm[Hg] [facility] BP Diastolic 2021-12-05 00:00:00 80 mm[Hg] [facility] Height 2021-12-05 00:00:00 64 [in_i] [facility] BP Systolic 2021-12-05 00:00:00 122 mm[Hg] [facility] BP Diastolic 2021-10-31 00:00:00 80 mm[Hg] [facility] BP Systolic 2021-10-31 00:00:00 116 mm[Hg] [facility] Systolic (mm Hg) 2021-06-16 19:24:00 [facility] Diastolic (mm Hg) 2021-06-16 19:24:00 [facility] Heart Rate 2021-06-16 19:24:00 [facility] Systolic (mm Hg) 2021-05-15 19:25:00 [facility] Diastolic (mm Hg) 2021-05-15 19:25:00 [facility] Heart Rate 2021-05-15 19:25:00 [facility] Temperature Oral (F) 2021-04-15 06:16:00 97.5 F [facility] Heart Rate 2021-04-15 06:16:00 [facility] Respitory Rate 2021-04-15 06:16:00 [facility] Systolic (mm Hg) 2021-04-15 06:16:00 [facility] Diastolic (mm Hg) 2021-04-15 06:16:00 [facility] Temperature Oral (F) 2021-04-15 02:16:00 97.1 F [facility] Heart Rate 2021-04-15 02:16:00 [facility] Respitory Rate 2021-04-15 02:16:00 [facility] Systolic (mm Hg) 2021-04-15 02:16:00 [facility] Diastolic (mm Hg) 2021-04-15 02:16:00 [facility] Systolic (mm Hg) 2021-04-14 21:00:00 [facility] Diastolic (mm Hg) 2021-04-14 21:00:00 [facility] Respitory Rate 2021-04-14 21:00:00 [facility] Heart Rate 2021-04-14 21:00:00 [facility] Temperature Oral (F) 2021-04-14 21:00:00 97.5 F [facility] Systolic (mm Hg) 2021-04-14 05:00:00 [facility] Diastolic (mm Hg) 2021-04-14 05:00:00 [facility] Systolic (mm Hg) 2021-04-14 01:00:00 [facility] Diastolic (mm Hg) 2021-04-14 01:00:00 [facility] Heart Rate 2021-04-13 22:28:00 [facility] Systolic (mm Hg) 2021-04-13 22:28:00 [facility] Diastolic (mm Hg) 2021-04-13 22:28:00 [facility] Respitory Rate 2021-04-13 21:00:00 [facility] Respitory Rate 2021-04-13 20:00:00 [facility] Respitory Rate 2021-04-13 19:00:00 [facility] Temperature Oral (F) 2021-04-13 09:00:00 97.5 F [facility] Temperature Oral (F) 2021-04-13 05:00:00 97.4 F [facility] Temperature Oral (F) 2021-04-13 01:00:00 97.5 F [facility] Height 2021-04-08 01:06:00 162.56 cm [facility] Weight 2021-04-08 01:06:00 [facility] BMI Calculated 2021-04-08 01:06:00 [facility] Height 2021-04-07 22:01:00 165.1 cm [facility] Weight 2021-04-07 22:01:00 [facility] BMI Calculated 2021-04-07 22:01:00 [facility] Heart Rate 2021-04-07 15:03:00 [facility] Temperature Oral (F) 2021-03-17 16:00:00 98.0 F [facility] Heart Rate 2021-03-17 16:00:00 [facility] Systolic (mm Hg) 2021-03-17 16:00:00 [facility] Diastolic (mm Hg) 2021-03-17 16:00:00 [facility] Temperature Oral (F) 2021-03-17 13:00:00 97.9 F [facility] Heart Rate 2021-03-17 13:00:00 [facility] Respitory Rate 2021-03-17 13:00:00 [facility] Systolic (mm Hg) 2021-03-17 13:00:00 [facility] Diastolic (mm Hg) 2021-03-17 13:00:00 [facility] Temperature Oral (F) 2021-03-17 09:00:00 97.4 F [facility] Heart Rate 2021-03-17 09:00:00 [facility] Respitory Rate 2021-03-17 09:00:00 [facility] Systolic (mm Hg) 2021-03-17 09:00:00 [facility] Diastolic (mm Hg) 2021-03-17 09:00:00 [facility] Respitory Rate 2021-03-17 05:00:00 [facility] Temperature Oral (F) 2021-03-10 05:00:00 97.5 F [facility] Heart Rate 2021-03-10 05:00:00 [facility] Respitory Rate 2021-03-10 05:00:00 [facility] Systolic (mm Hg) 2021-03-10 05:00:00 [facility] Diastolic (mm Hg) 2021-03-10 05:00:00 [facility] Temperature Oral (F) 2021-03-10 01:00:00 97.6 F [facility] Heart Rate 2021-03-10 01:00:00 [facility] Respitory Rate 2021-03-10 01:00:00 [facility] Systolic (mm Hg) 2021-03-10 01:00:00 [facility] Diastolic (mm Hg) 2021-03-10 01:00:00 [facility] Temperature Oral (F) 2021-03-09 21:00:00 97.3 F [facility] Heart Rate 2021-03-09 21:00:00 [facility] Respitory Rate 2021-03-09 21:00:00 [facility] Systolic (mm Hg) 2021-03-09 21:00:00 [facility] Diastolic (mm Hg) 2021-03-09 21:00:00 [facility] Height 2021-03-09 18:38:00 162.56 cm [facility] Weight 2021-03-09 18:38:00 [facility] BMI Calculated 2021-03-09 18:38:00 [facility] Height 2021-03-03 15:15:00 162.56 cm [facility] Height 2021-02-25 15:08:00 162.56 cm [facility] Weight 2021-02-25 15:08:00 [facility] BMI Calculated 2021-02-25 15:08:00 [facility] Systolic (mm Hg) 2021-01-23 15:14:00 [facility] Systolic (mm Hg) 2021-01-21 15:47:00 [facility] Diastolic (mm Hg) 2021-01-21 15:47:00 [facility] Systolic (mm Hg) 2021-01-16 15:43:00 [facility] Diastolic (mm Hg) 2021-01-16 15:43:00 [facility] Diastolic (mm Hg) 2021-01-02 20:22:00 [facility] Systolic (mm Hg) 2020-12-26 16:00:00 [facility] Diastolic (mm Hg) 2020-12-26 16:00:00 [facility] Heart Rate 2020-12-17 16:14:00 [facility] Systolic (mm Hg) 2020-12-17 16:14:00 [facility] Diastolic (mm Hg) 2020-12-17 16:14:00 [facility] Systolic (mm Hg) 2020-12-05 16:19:00 [facility] Diastolic (mm Hg) 2020-12-05 16:19:00 [facility] Systolic (mm Hg) 2020-11-28 19:10:00 [facility] Diastolic (mm Hg) 2020-11-28 19:10:00 [facility] Systolic (mm Hg) 2020-11-26 17:27:00 [facility] Diastolic (mm Hg) 2020-11-26 17:27:00 [facility] Systolic (mm Hg) 2020-11-21 23:01:00 [facility] Diastolic (mm Hg) 2020-11-21 23:01:00 [facility] Systolic (mm Hg) 2020-10-17 16:13:00 [facility] Diastolic (mm Hg) 2020-10-17 16:13:00 [facility] Systolic (mm Hg) 2020-10-15 18:48:00 [facility] Diastolic (mm Hg) 2020-10-15 18:48:00 [facility] Systolic (mm Hg) 2020-10-08 14:59:00 [facility] Diastolic (mm Hg) 2020-10-08 14:59:00 [facility] Heart Rate 2020-09-03 16:14:00 [facility] Systolic (mm Hg) 2020-09-03 16:14:00 [facility] Diastolic (mm Hg) 2020-09-03 16:14:00 [facility] Systolic (mm Hg) 2020-08-27 15:26:00 [facility] Diastolic (mm Hg) 2020-08-27 15:26:00 [facility] Heart Rate 2020-08-22 14:01:00 [facility] Systolic (mm Hg) 2020-08-22 14:01:00 [facility] Diastolic (mm Hg) 2020-08-22 14:01:00 [facility] Heart Rate 2020-08-20 14:27:00 [facility] Systolic (mm Hg) 2020-08-13 16:31:00 [facility] Diastolic (mm Hg) 2020-08-13 16:31:00 [facility] Systolic (mm Hg) 2020-08-08 14:27:00 [facility] Diastolic (mm Hg) 2020-08-08 14:27:00 [facility] Systolic (mm Hg) 2020-08-06 20:49:00 [facility] Diastolic (mm Hg) 2020-08-06 20:49:00 [facility] Heart Rate 2020-07-18 19:26:00 [facility] Systolic (mm Hg) 2020-07-11 21:09:00 [facility] Diastolic (mm Hg) 2020-07-11 21:09:00 [facility] Heart Rate 2020-07-09 14:00:00 [facility] Systolic (mm Hg) 2020-07-09 14:00:00 [facility] Diastolic (mm Hg) 2020-07-09 14:00:00 [facility] Systolic (mm Hg) 2020-07-04 20:21:00 [facility] Diastolic (mm Hg) 2020-07-04 20:21:00 [facility] Heart Rate 2020-07-03 19:00:00 [facility] Heart Rate 2020-06-18 18:01:00 [facility] Respitory Rate 2020-03-15 17:18:00 [facility] Systolic (mm Hg) 2020-03-15 17:18:00 [facility] Diastolic (mm Hg) 2020-03-15 17:18:00 [facility] Respitory Rate 2020-03-15 17:09:00 [facility] Systolic (mm Hg) 2020-03-15 17:09:00 [facility] Diastolic (mm Hg) 2020-03-15 17:09:00 [facility] Respitory Rate 2020-03-15 17:02:00 [facility] Systolic (mm Hg) 2020-03-15 17:02:00 [facility] Diastolic (mm Hg) 2020-03-15 17:02:00 [facility] Temperature Oral (F) 2020-03-15 12:33:00 98.0 F [facility] Heart Rate 2020-03-15 12:33:00 [facility] Temperature Oral (F) 2020-03-12 15:30:00 97 F [facility] Heart Rate 2020-03-12 15:30:00 [facility] Height 2020-03-11 19:32:00 167.64 cm [facility] Weight 2020-03-11 19:32:00 [facility] BMI Calculated 2020-03-11 19:32:00 [facility] Height 2019-08-16 16:13:00 162.56 cm [facility] Systolic (mm Hg) 2019-02-20 20:45:00 [facility] Diastolic (mm Hg) 2019-02-20 20:45:00 [facility] Respitory Rate 2019-02-20 20:45:00 [facility] Respitory Rate 2019-02-20 20:30:00 [facility] Systolic (mm Hg) 2019-02-20 20:30:00 [facility] Diastolic (mm Hg) 2019-02-20 20:30:00 [facility] Systolic (mm Hg) 2019-02-20 20:15:00 [facility] Diastolic (mm Hg) 2019-02-20 20:15:00 [facility] Respitory Rate 2019-02-20 20:15:00 [facility] Heart Rate 2019-02-20 14:02:00 [facility] Weight 2019-02-20 14:01:00 [facility] Height 2019-02-20 14:01:00 162.56 cm [facility] BMI Calculated 2019-02-20 14:01:00 [facility] Height 2019-02-01 13:23:00 162.56 cm [facility] Systolic (mm Hg) 2019-02-01 13:23:00 [facility] Diastolic (mm Hg) 2019-02-01 13:23:00 [facility] Weight 2019-02-01 13:23:00 [facility] BMI Calculated 2019-02-01 13:23:00 [facility] Temperature Oral (F) 2018-11-24 17:51:00 97.3 F [facility] Heart Rate 2018-11-24 17:51:00 [facility] Respitory Rate 2018-11-24 17:51:00 [facility] Systolic (mm Hg) 2018-11-24 17:51:00 [facility] Diastolic (mm Hg) 2018-11-24 17:51:00 [facility] Temperature Oral (F) 2018-11-24 14:23:00 97.6 F [facility] Heart Rate 2018-11-24 14:23:00 [facility] Respitory Rate 2018-11-24 14:23:00 [facility] Systolic (mm Hg) 2018-11-24 14:23:00 [facility] Diastolic (mm Hg) 2018-11-24 14:23:00 [facility] Temperature Oral (F) 2018-11-24 10:00:00 97.6 F [facility] Heart Rate 2018-11-24 10:00:00 [facility] Respitory Rate 2018-11-24 10:00:00 [facility] Systolic (mm Hg) 2018-11-24 10:00:00 [facility] Diastolic (mm Hg) 2018-11-24 10:00:00 [facility] Height 2018-11-22 07:41:00 167.64 cm [facility] Weight 2018-11-22 07:41:00 [facility] BMI Calculated 2018-11-22 07:41:00 [facility] Weight 2018-11-22 00:11:00 [facility] Weight 2018-02-03 13:11:00 [facility] BMI Calculated 2018-02-03 13:11:00 [facility] Height 2018-02-03 13:11:00 167.64 cm [facility] Temperature Oral (F) 2017-09-11 17:09:00 98.1 F [facility] Systolic (mm Hg) 2017-09-11 17:09:00 [facility] Diastolic (mm Hg) 2017-09-11 17:09:00 [facility] Heart Rate 2017-09-11 17:09:00 [facility] Respitory Rate 2017-09-11 17:09:00 [facility] Heart Rate 2017-09-11 13:20:00 [facility] Temperature Oral (F) 2017-09-11 13:20:00 97.7 F [facility] Systolic (mm Hg) 2017-09-11 13:20:00 [facility] Diastolic (mm Hg) 2017-09-11 13:20:00 [facility] Respitory Rate 2017-09-11 13:20:00 [facility] Temperature Oral (F) 2017-09-11 09:24:00 97.6 F [facility] Respitory Rate 2017-09-11 09:24:00 [facility] Systolic (mm Hg) 2017-09-11 09:24:00 [facility] Diastolic (mm Hg) 2017-09-11 09:24:00 [facility] Heart Rate 2017-09-11 09:24:00 [facility] Height 2017-09-01 15:13:00 167.64 cm [facility] Weight 2017-09-01 15:13:00 [facility] BMI Calculated 2017-09-01 15:13:00 [facility] Height 2017-07-01 12:48:00 167.64 cm [facility] Weight 2017-07-01 12:48:00 [facility] BMI Calculated 2017-07-01 12:48:00 [facility] Procedures Procedure Date / Time Performing Clinician Source Performed XR ANKLE 3+ VIEWS LEFT 2021-08-12 19:31:27 Catrachito Fox [facility] Insertion of temporary 2021-06-16 19:55:00 [facility] indwelling bladder catheter; simple (eg, Daniel) Post Op Promis 29 Survey 2020-04-19 00:00:00 [facility] [U] XRAY FOOT MIN 3 VWS 2020-02-29 00:00:00 [facility] LEFT [id number] [U] XRAY FOOT MIN 3 VWS 2019-09-27 00:00:00 [facility] [id number] [U] XRAY FOOT MIN 3 VWS 2019-06-09 00:00:00 [facility] LEFT [id number] [U] XRAY FOOT MIN 3 VWS 2019-05-09 00:00:00 [facility] [id number] US Extremity lower 2019-04-26 00:00:00 [facility] venous Doppler Unilat [id number] [U] XRAY FOOT MIN 3 VWS 2019-04-11 00:00:00 [facility] LEFT [id number] [U] XRAY ELBOW MIN 3 VWS 2019-03-22 00:00:00 [facility] LEFT [id number] [U] XRAY FOOT MIN 3 S 2019-03-14 00:00:00 [facility] LEFT [id number] Post Op Promis 29 Survey 2019-03-02 00:00:00 [facility] Arthrodesis of left foot 2019-01-23 00:00:00 [facility] min[facility]a [facility] VITAMIN D, 2018-12-27 00:00:00 [facility] 25-HYDROXY, LC/MS/MS Esophag[facility] 2017[facility]<sup>1</sup> 2008-08-25 00:00:00 Lacey Orr Colectomy [facility] nn adenoidectomy History of [facility]illectomy [facility] of Colon surgery [facility] Pacemaker [facility] Colostomy [facility] Procedure on Ankle [facility] Encounters Start End Encounter Admission Attending Care Care Encounter Source Date/Time Date/Time Type Type Clinicians Facility Department ID 2022-08-10 Outpatient [facility] [id number] [place] 14:39:02 [id number] Health 2022-05-27 Outpatient [facility] [id number] [place] 10:19:20 [id number] Health 2022-05-14 Outpatient [facility] [id number] [place] 16:42:15 [id number] Health 2022-05-07 Outpatient [facility] [id number] [place] 14:15:20 [id number] Health 2022-05-04 Outpatient [facility] [id number] [place] 06:29:00 [id number] [facility] 2021-08-12 Outpatient [facility] [id number] [place] 14:25:17 Health 2021-03-01 Outpatient MAVIS [facility] [id number] [place] 03:40:22 CATRACHITO [facility] 2020-03-11 Outpatient [facility]AVIS [facility] [id number] 16:30:57 [facility] 2022-09-22 2022-09-22 Outpatient [facility] SASHA[facility] [id number] [facility] 13:20:00 13:20:00 18 maixne Orr 2022-08-24 2022-08-24 Outpatient [facility] SASHAIE [id number] [facility] 09:40:00 09:40:00 17 maxine Orr 2022-07-23 2022-07-23 Outpatient KHAN_F VFP VFP [id number] [facility] 00:00:00 00:00:00 [id number] Family Practic e 2022-07-23 2022-07-23 Karolina VFP [place] - [id number] V illage 00:00:00 00:00:00 Marcella Hernandez, [facility] LOOM SETTER: [id number] [facility] [place] - e [facility], [address], [facility] [id number] , Ph. 2022-07-22 2022-07-22 Outpatient KHAN_F VFP VFP [id number] [facility] 00:00:00 00:00:00 [id number] Family Practic e 2022-07-21 2022-07-21 Outpatient [facility] SAS[facility]IE [id number] [facility] 13:20:00 13:20:00 16 maxine Orr 2022-06-23 2022-06-23 Outpatient [facility] SAS[facility] [id number] [facility] 15:00:00 15:00:00 15 maxine MauroKirby 2022-06-22 2022-06-22 Outpatient KHAN_F VFP VFP [id number] [facility] 00:00:00 00:00:00 [id number] Family Practic e 2022-06-09 2022-06-09 Outpatient BRANDIE [facility] [id number] [place] 15:15:00 15:15:00 LEONCIO hardy 2022-06-03 2022-06-03 Outpatient KHAN_F VFP VFP [id number] [facility] 00:00:00 00:00:00 [id number] Family Practic e 2022-04-30 2022-04-30 Outpatient MHIE MHIE [id number] [facility] 15:00:00 15:00:00 14 maxine Orr 2022-04-30 2022-04-30 Outpatient KHAN_F VFP VFP [id number] [facility] 03:01:00 03:01:00 [id number] Family Practic e 2022-03-30 2022-03-30 Outpatient MH[facility] SASHAIE [id number] [facility] 13:30:00 13:30:00 13 maxine Orr 2022-03-24 2022-03-24 Outpatient KHAN_F VFP VFP [id number] [facility] 01:08:00 01:08:00 [id number] Family Practic e 2022-02-26 2022-02-26 Outpatient MHIE CY [id number] [facility] 14:30:00 14:30:00 12 maxine Orr 2022-01-28 2022-01-28 Outpatient MHIE CY [id number] [facility] 14:00:00 14:00:00 11 maxine Orr 2022-01-06 2022-01-06 Outpatient MHIE SASHAIE [id number] Memoria 14:00:00 14:00:00 10 maxine Orr 2022-01-01 2022-01-01 Outpatient KHAN_F VFP VFP [id number] [facility] 03:14:00 03:14:00 [id number] Family Practic e 2021-12-31 2021-12-31 Outpatient KHAN_F VFP VFP [id number] -[id number] [facility] 12:56:00 12:56:00 [id number] Family Practic e 2021-12-18 2021-12-18 Outpatient MHIE SASHAIE [id number] Memoria 13:30:00 13:30:00 09 maxine Orr 2021-12-11 2021-12-11 Emergency [facility] 14:20:00 21:31:00 MATTHEW Maria Memoria maxine 2021-12-11 2021-12-11 Outpatient KHAN_F VFP VFP [id number] -[id number] [facility] 06:25:00 06:25:00 [id number] Family Practic e 2021-12-10 2021-12-10 Pedro KHAN_F VFP [place] - [id number] [facility] 00:00:00 00:00:00 Urbano [facility] [id number] Famil y MD: [id number] Medical - Prac [facility] Ten VM_HOU_Memo e [facility], [facility] [address], [facility] [address] , Ph. 2021-12-09 2021-12-09 Outpatient KHAN_F VFP VFP [id number] -[id number] [facility] 12:01:00 12:01:00 [id number] Family Practic e 2021-12-08 2021-12-08 Outpatient KHAN_F VFP VFP [id number] -[id number] [facility] 02:27:00 02:27:00 [id number] Family Practic e 2021-12-05 2021-12-05 Monica KHAN_F VFP [place] - [id number] [facility] 00:00:00 00:00:00 [facility] [id number] Family Myranda [facility] LOOM SETTER: [id number] VM_HOU_Spri e [facility]ly [facility], ([facility]) [place] [address] , Ph. 2021-11-27 2021-11-27 Outpatient KHAN_F VFP VFP [id number] -[id number] [facility] 03:36:00 03:36:00 [id number] Family Practic e 2021-11-25 2021-11-25 Emergency E JEFF, AMBER KM 7513 [facility] 05:45:00 09:19:00 MENDEZ Maria Memoria maxine 2021-11-19 2021-11-19 Outpatient KHAN_F VFP VFP [id number] -[id number] [facility] 05:41:00 05:41:00 [id number] Family Practic e 2021-11-17 2021-11-17 Outpatient CY BENOIT [id number] Memoria 14:30:00 14:30:00 Lavell Orr 2021-11-13 2021-11-13 Outpatient [place]_ VFP VFP 172 [id number] [facility] 02:50:00 02:50:00 A [id number] Family Practic e 2021-11-04 2021-11-04 Outpatient [place]_ VFP VFP 172 [facility]20 [facility] 03:38:00 03:38:00 A [id number] Family Practic e 2021-10-31 2021-10-31 Lex [place]_ VFP [place] - 172 [facility]20 [facility] 00:00:00 00:00:00 Becky Allen [facility] [id number] Family [place] [facility] MD giuliano: 9450 VM_HOU_Spri e [facility], ([facility]) [facility] [place] [address] , Ph. 2021-10-13 2021-10-13 Outpatient MHIE MHIE [id number] Memoria 14:15:00 14:15:00 07 maxine Orr 2021-09-16 2021-09-16 Outpatient MHIE MHIE [id number] Memoria 13:30:00 13:30:00 06 maxine Orr 2021-09-01 2021-09-01 Outpatient [place]_ VFP VFP [address] [place] [address] 02:15:00 02:15:00 A [id number] Family Practic e 2021-08-18 2021-08-18 Outpatient MHIE MHIE [id number] Memoria 14:30:00 14:30:00 05 maxine Orr 2021-08-12 2021-08-12 Office FEDERICA Fox [facility] 1.2.840.114 [id number] [place] 13:09:44 15:08:09 Visit Catrachito [facility] [id number] H ealth [place] [id number] SMI [id number] 1 2021-08-07 2021-08-07 Orders Claudia Feldman UTP [facility] 1.2.840.114 12 [id number] [place] 00:00:00 00:00:00 Only Claudia Feldman [facility] [id number] Health IRONMAN 9.2.7.2.686 SMI [id number] 2021-07-25 2021-07-26 Emergency E SUKUMAR [facility] [id number] Memoria 19:08:00 01:22:00 DAMIEN Mauromarcella goodman 2021-07-21 2021-07-21 Outpatient MHIE IE [id number] [facility] 14:00:00 14:00:00 04 maxine Orr 2021-07-21 2021-07-21 Outpatient IE NEW [id number] [facility] 14:00:00 14:00:00 04 maxine Orr 2021-07-15 2021-07-15 Outpatient [place]_ VFP VFP 172 [id number] [facility] 06:09:00 06:09:00 A [id number] Family Calixto e 2021-07-08 2021-07-08 Amaraseeli [place]_ VFP [place] - 172 3410-20 [place] 00:00:00 00:00:00 [facility] [id number] [facility] MD giuliano: 9450 [facility]rod[facility] spring [facility] ([facility]) [place] [address] , Ph. 2021-07-04 2021-07-04 Outpatient [place]_ VFP VFP 172 3410-20 [place] 08:27:00 08:27:00 A [id number] Family De Luna e 2021-07-03 2021-07-03 Amaraseeli [place]_ VFP [place] - 172 3410-20 [place] 00:00:00 00:00:00 [facility] [id number] [facility] MD giuliano: 9450 YANETH_Spri marnie spring [facility], ([facility]) [place] [address] , Ph. 2021-07-02 2021-07-02 Amaraseeli [place]_ VFP [place] - 172 3410-20 [place] 00:00:00 00:00:00 [facility] Ale[facility] [id number] [facility] MD giuliano: 9450 HARVEYSprIveth Gibbs ([facility]) [place] [address] , Ph. 2021-06-16 2021-06-17 Outpatient nullFlavo [facility] [id number] Memoria 20:30:00 04:59:59 r Urology 03 [facility] 2021-06-16 2021-06-16 Outpatient MHIE [facility] [id number] Memoria 15:30:00 15:30:00 03 [facility] 2021-05-15 2021-05-16 Outpatient nullFlavo [facility] [id number] Memoria 19:15:00 04:59:59 r Urology 02 [facility] 2021-05-15 2021-05-15 Outpatient IE [facility] [id number] Memoria 14:15:00 14:15:00 02 [facility] 2021-04-07 2021-04-15 Inpatient nullFlavo [facility] [id number] Memoria 14:47:41 07:09:00 r Violet 11 [facility] 2021-04-07 2021-04-15 Inpatient E WANG, [facility] MED [id number] Memoria 12:26:00 02:09:00 [facility] 2021-04-07 2021-04-07 EXT [facility] OP [place], EXT MSRDP 1.2.840.114 1 [id number] [place] 00:00:00 00:00:00 [place]rachito LOCATION [id number] H ealth [id number] [id number] 2021-04-07 2021-04-07 EXT [facility] OP [place], EXT MSRDP 1.2.840.114 1 [id number] [place] 00:00:00 00:00:00 [place] LOCATION [id number] H ealth [id number] [id number] 2021-03-03 2021-04-02 Tots nullFlavo TIR[facility] [id number] Memoria 15:00:00 04:59:00 Therapy r [facility] 11 [facility] 2021-02-25 2021-03-27 Recurring nullFlavo TIR[facility] [id number] Memoria 13:00:00 04:59:00 r [facility] 04 [facility] 2021-03-19 2021-03-19 EXT MHH OP [place], EXT MSRDP 1.2.840.114 1 [id number] [place] 00:00:00 00:00:00 [place] LOCATION [id number] H ealth [id number] [id number] 2021-03-19 2021-03-19 EXT MHH OP [place], EXT MSRDP 1.2.840.114 1 [id number] [place] 00:00:00 00:00:00 [place] LOCATION [id number] H ealth 9.2.7.2.686 [id number] 2021-03-09 2021-03-17 Inpatient [facility] [id number] 14:13:34 23:33:00 r Kirby l [facility] 2021-03-09 2021-03-17 Inpatient E LEVAR JI [facility] MED [id number] [facility] 11:20:00 18:33:00 [facility] 2021-03-10 2021-03-10 EXT MHH OP EXT MSRDP 1.2.840.114 1 [id number] [place] 00:00:00 00:00:00 LOCATION [id number] H ealth [id number] [id number] 2021-03-10 2021-03-10 EXT MHH OP EXT MSRDP 1.2.840.114 1 [id number] [place] 00:00:00 00:00:00 LOCATION [id number] H ealth [id number] [id number] 2021-03-07 2021-03-07 EXT MHH OP EXT MSRDP 1.2.840.114 1 [id number] [place] 00:00:00 00:00:00 LOCATION [id number] H ealth [id number] [id number] 2021-03-07 2021-03-07 EXT MHH OP EXT MSRDP 1.2.840.114 1 [id number] UT 00:00:00 00:00:00 LOCATION [id number] H ealth [id number] [id number] 2021-03-05 2021-03-05 EXT MHH OP [place], EXT MSRDP 1.2.840.114 1 [id number] UT 00:00:00 00:00:00 [place] LOCATION [id number] H ealth 9.2.7.2.686 [id number] 2021-03-05 2021-03-05 EXT MHH OP [place], EXT MSRDP 1.2.840.114 1 [id number] UT 00:00:00 00:00:00 [place] LOCATION 350.1.13.58 H ealth 9.2.7.2.686 [id number] 2021-01-30 2021-03-01 [facility] TIRR [id number] [facility] 18:00:00 04:59:00 Therapy [facility] 10 l Kirby Orr 2021-02-21 2021-02-21 EXT MHH OP [place], EXT MSRDP 1.2.840.114 1 [id number] UT 00:00:00 00:00:00 [place] LOCATION 350.1.13.58 H ealth 9.2.7.2.686 [id number] 2021-02-21 2021-02-21 EXT MHH OP [place], EXT MSRDP 1.2.840.114 1 [id number] [place] 00:00:00 00:00:00 [place] LOCATION 350.1.13.58 H ealth 9.2.7.2.686 [id number] 0 2021-02-21 2021-02-21 EXT MHH OP [place], EXT MSRDP 1.2.840.114 1 [id number] UT 00:00:00 00:00:00 [place] LOCATION 350.1.13.58 H ealth 9.2.7.2.686 [id number] 2021-02-21 2021-02-21 EXT MHH OP [place], EXT MSRDP 1.2.840.114 1 [id number] UT 00:00:00 00:00:00 [place] LOCATION 350.1.13.58 H ealth 9.2.7.2.686 [id number] 0 2021-01-02 2021-02-01 Tots nullFlavo TIRR [id number] Memoria 15:41:00 04:59:00 Therapy r Memorial 09 maxine Orr 2021-01-30 2021-01-30 EXT [facility] OP [place], EXT MSRDP 1.2.840.114 1 [id number] UT 00:00:00 00:00:00 [place] LOCATION 350.1.13.58 H ealth 9.2.7.2.686 [id number] 2021-01-30 2021-01-30 EXT H OP [place], EXT MSRDP 1.2.840.114 1 [id number] UT 00:00:00 00:00:00 [place] LOCATION 350.1.13.58 H ealth 9.2.7.2.686 [id number] 2020-12-03 2021-01-02 Tots nullFlavo TIRR [id number] Memoria 15:40:00 05:59:00 Therapy r Memorial 08 maxine Orr 2020-12-03 2020-12-03 Appointmen FEDERICA FOX UTP [id number] UT 10:45:00 10:45:00 t; CATRACHITO FOX, Ph Ubaldo Sommers MNaif 2020-10-31 2020-11-30 Tots nullFlavo TIRR [id number] Memoria 15:55:00 05:59:00 Therapy r Lilibeth 07 maxine Orr 2020-10-08 2020-10-25 Tots nullFlavo TIRR [id number] Memoria 14:56:00 02:00:00 Therapy r Lilibeth 06 maxine Orr 2020-10-01 2020-10-01 Appointmen FEDERICA FOX UTP [id number] UT 10:45:00 10:45:00 t; CATRACHITO FOX, Ubaldo Tafoya MNaif 2020-08-20 2020-09-19 Tots nullFlavo TIRR [id number] Memoria 13:00:00 05:59:00 Therapy r Memorial 05 maxine Orr 2020-09-03 2020-09-03 Appointmen [place], [facility] [id number] UT 13:45:00 13:45:00 t; CATRACHITO FOX, Ph shahana WINSTON M.D. ans M.Ramesh 2020-07-18 2020-08-17 Tots nullFlavo TIRR [id number] 94 Memoria 19:00:00 04:59:00 Therapy r Memorial 04 l Kirby Kirby 2020-06-18 2020-07-18 Tots nullFlavo TIRR [id number] Memoria 17:22:00 04:59:00 Therapy r Memorial 03 l Kirby Kirby 2020-06-14 2020-06-14 Appointmen [place], [facility] [id number] UT 10:15:00 10:15:00 t; CATRACHITO FOX, Ph shahana WINSTON M.D. ans M.Ramesh 2020-06-04 2020-06-04 Appointmen [facility]IS [facility] Orthopedics [id number] [place] 09:45:00 09:45:00 t; CATRACHITO FOX, at [facility] Dante WINSTON M.D. Sports ans Ubaldo [facility] [address] 2020-05-03 2020-05-03 Appointmen [facility] Orthopedics [id number] [place] 10:15:00 10:15:00 t; CATRACHITO FOX, at [facility] Dante WINSTON M.D. Sports ans MNaif [facility] [address] 2020-03-28 2020-03-28 Appointmen [place], [facility] [id number] [place] 13:20:00 13:20:00 t; Gurpreet ROSE APRN ans KRISTINA, APRN 2020-03-21 2020-03-21 [facility] [place], [facility] [id number] UT 13:20:00 13:20:00 t; Gurpreet ROSE APRN ans KRISTINA, APRN 2020-03-15 2020-03-16 Day [facility] [id number] Memoria 12:19:00 04:59:00 Surgery r Kirby 07 l [facility] 2020-03-15 2020-03-15 Appointmen [place], [facility] [id number] UT 15:00:00 15:00:00 t; CATRACHITO FOX, Ph Ubaldo Sommers M.D. 2020-02-29 2020-02-29 Appointmen FEDERICA FOX Orthopedics [id number] UT 14:45:00 14:45:00 t; CATRACHITO FOX, at Ubaldo Kirkpatrick M.D. [facility] A 2019-12-26 2020-01-25 Tots nullFlavo TIRR [id number] 94 Memoria 15:42:00 04:59:00 Therapy r [facility] 03 [facility] 2019-12-28 2019-12-28 Ambulatory nullFlavo [facility] [id number] Memoria 16:30:00 16:30:00 Pre-Reg r Cardiology [facility] 2019-12-28 2019-12-28 Outpatient MHIE MHIE [id number] Memoria 10:30:00 10:30:00 01 [facility] 2019-11-07 2019-12-07 Tots nullFlavo TIRR [id number] 94 Memoria 14:00:00 05:59:00 Therapy r [facility] 02 [facility] 2019-10-23 2019-10-25 Tots nullFlavo TIRR [id number] 94 Memoria 14:00:00 02:00:00 Therapy r [facility] 01 [facility] 2019-09-20 2019-10-20 Wound Care nullFlavo [facility] [id number] Memoria 15:00:00 05:59:[address] 2019-09-19 2019-10-19 Tots nullFlavo TIRR [id number] 94 Memoria 12:00:00 05:59:00 Therapy r [facility] 00 [facility] 2019-09-27 2019-09-27 Appointmen FEDERICA FOX Orthopedics [id number] [place] 13:45:00 13:45:00 t; CATRACHITO FOX, at Luz WINSTON M.D. [facility] luis manuel Conner [facility] A 2019-09-20 2019-09-20 Outpatient [facility] [id number] [facility] 09:00:00 09:00:00 2019-08-16 2019-09-15 Tots nullFlavo TIRR [id number] Memoria 12:00:00 05:59:00 Therapy r [facility] l [facility] 2019-07-19 2019-08-18 [id number] Memoria 14:55:00 04:59:00 r Violet 00 l [facility] 2019-08-15 2019-08-16 Outpatient nullFlavo [facility] [id number] Memoria 12:47:00 04:59:00 r Outpatient 11 l [facility] 2019-08-09 2019-08-10 Outpt Diag nullFlavo [facility] [id number] Memoria 12:50:00 04:59:00 Services r Outpatient 10 l [facility] 2019-08-09 2019-08-09 Appointdeena FOX [facility] Orthopedics [id number] [place] 13:00:00 13:00:00 t; CATRACHITO FOX at [facility] Dante WINSTON M.D. Sports luis manuel Conner [facility] [address] 2019-07-19 2019-07-19 [facility]patient [id number] 09:55:00 09:55:00 2019-06-09 2019-06-09 Chelsea FOX [facility] Orthopedics [id number] [place] 10:45:00 10:45:00 t; CATRACHITO FOX at [facility] Ubaldo Zamora M.D. [facility] [address] 2019-05-09 2019-05-09 Chelsea FOX [facility] Orthopedics [id number] [place] 09:45:00 09:45:00 t; CATRACHITO FOX at [facility] Ubaldo Zamora M.D. [facility] [address] 2019-05-01 2019-05-02 [facility] [id number] Memoria 16:47:00 04:59:00 Services r Outpatient 09 l [facility] 2019-04-26 2019-04-26 Chelsea TIRADO [facility] Orthopedics [id number] UT 09:30:00 09:30:00 t; felipe ROSE [facility] OPAL [facility] [address] 2019-04-11 2019-04-11 Appointdeena FOX [facility] Orthopedics [id number] [place] 09:45:00 09:45:00 t; CATRACHITO FOX, at [facility] Dante WINSTON M.D. Sports luis manuel Conner [facility] A 2019-03-23 2019-03-23 Appointmen FLACA [facility] Orthopedics [id number] [place] 10:15:00 10:15:00 t; Ubaldo STEINBERG at [facility] Dante THAYER, Sports Mariam Robert M.D. [facility] A 2019-03-14 2019-03-14 Appointmen [facility] [id number] [place] 13:15:00 13:15:00 t; [facility] Ph shahana WINSTON M.D. [facility] M.[facility] 2019-02-28 2019-02-28 Appointmen [facility]IS [facility] [id number] UT 13:15:00 13:15:00 t; CATRACHITO FOX, Ph Ubaldo Sommers M.D. 2019-02-20 2019-02-20 Day [facility] [id number] Memoria 13:41:00 21:39:00 Surgery r Violet 06 l [facility] 2019-02-20 2019-02-20 [facility] [id number] [place] 09:30:00 09:30:00 t; CATRACHITO FOX, Ph Ubaldo Sommers M.D. 2019-02-20 2019-02-20 Outpatient [facility] [id number] Memoria 08:41:00 08:41:00 [facility] 2019-02-07 2019-02-07 Appointmen [facility] [id number] UT 13:00:00 13:00:00 t; CATRACHITO FOX, Ph Ubaldo Sommers M.D. 2019-02-06 2019-02-07 Outpt Diag nullFlavo [facility] [id number] Memoria 11:26:00 04:59:00 Services r Outpatient 08 l [facility] 2019-02-01 2019-02-02 Outpatient nullFlavo [facility] [id number] Memoria 13:45:00 04:59:59 r Cardiology 00 l [facility] 2019-02-01 2019-02-02 Outpatient nullFlavo [facility] [id number] Memoria 13:45:00 04:59:59 r Cardiology 00 l [facility] 2019-02-01 2019-02-01 Outpatient Nikki, [facility] MG [id number] 08:45:00 23:59:59 Reed H 00 2019-02-01 2019-02-01 Outpatient MHIE IE [id number] Memoria 08:45:00 08:45:00 00 l Violet 2019-01-24 2019-01-[address] [facility] [id number] [place] 09:30:00 09:30:00 [facility]do Sommers ans M.D. [address] 2019-01-10 2019-01-[address] [facility] [id number] [place] 09:45:00 09:45:00 t; [facility] Ubaldo Sommers ans M.D. [address] 2018-12-27 2018-12-[address] [facility] [id number] [place] 10:30:00 10:30:00 t; [facility] Ubaldo Sommers ans M.D. [address] 2018-12-15 2018-12-15 [facility] [id number] [place] 14:00:00 14:00:00 t; MILTON [facility] CANDIDA ASSISTANT OPERATORluis manuel [address] [facility] 2018-11-22 2018-11-24 [facility] [id number] Memoria 00:09:00 20:32:00 r Kirby 04 l [facility] 2018-06-02 2018-06-03 Outpt Diag nullFlavo [facility] [id number] Memoria 14:00:00 04:59:00 Services r Outpatient 07 l [facility] 2018-03-01 2018-03-02 Outpatient nullFlavo [facility] [id number] Memoria 13:50:00 04:59:00 r Outpatient 06 l [facility] 2018-02-03 2018-02-03 Bedded [facility] [id number] Memoria 12:44:00 16:00:00 Outpatient r Kirby 02 l [facility] 2017-11-22 2017-11-22 Appointmen ZULEIMA, UTP UTP [id number] UT 09:00:00 09:00:00 t; MARIA DEL CARMEN DEWEY [facility] 2017-10-22 2017-10-22 Appointmen ZULEIMA, UTP UTP [id number] UT 09:45:00 09:45:00 t; MARIA DEL CARMEN DEWEY [facility] 2017-09-21 2017-09-21 Appointmen ZULEIMA, UTP UTP [id number] UT 14:45:00 14:45:00 t; MARAI DEL CARMEN DEWEY [facility] 2017-09-09 2017-09-11 Inpatient nullFlavo [facility] [id number] Memoria 12:06:00 19:15:00 r Kirby 01 l [facility] 2017-09-09 2017-09-09 Appointmen ZULEIMA, UTP UTP [id number] UT 09:00:00 09:00:00 t; MARIA DEL CARMEN DEWEY [facility] 2017-09-09 2017-09-09 AppointFEDERICA Vazquez UTP [id number] UT 09:00:00 09:00:00 t; KAHLIL LEWIS sici [facility] 2017-08-09 2017-08-09 Appointmen ZULEIMA, UTP UTP [id number] UT 08:30:00 08:30:00 t; MARIA DEL CARMEN DEWEY [facility] 2017-07-14 2017-07-15 Outpt Diag nullFlavo [facility] [id number] Memoria 12:25:00 04:59:00 Services r Outpatient 05 [facility] 2017-07-01 2017-07-01 Bedded nullFlavo [facility] [id number] Memoria 12:33:00 16:45:00 Outpatient r Kirby 00 [facility] 2017-05-12 2017-05-13 Outpt Diag nullFlavo [facility] [id number] Memoria 14:53:00 04:59:00 Services r Outpatient 04 [facility] 2017-04-06 2017-04-07 Outpt Diag nullFlavo [facility] [id number] Memoria 15:26:00 04:59:00 Services r Outpatient 03 [facility] 2017-02-17 2017-02-18 Outpt Diag nullFlavo [facility] [id number] Memoria 14:06:00 04:59:00 Services r Outpatient 01 l [facility] 2017-02-08 2017-02-09 Outpatient nullFlavo [facility] [id number] Memoria 17:27:00 04:59:00 r Outpatient 02 l [facility] 2014-11-14 2014-11-15 Outpt Diag nullFlavo [facility] [id number] Memoria 18:07:00 05:59:00 Services r Outpatient 00 l [facility] Results Test Description Test Time Test Comments Results Result Comments Source CHEM PANEL 2021-04-13 1.8 [facility] 08:54:00 CHEM PANEL 2021-04-13 86 [facility] 08:54:00 CHEM PANEL 2021-04-13 22 [facility] 08:54:00 CHEM PANEL 2021-04-13 1.52 [facility] 08:54:00 CHEM PANEL 2021-04-13 143 [facility] 08:54:00 CHEM PANEL 2021-04-13 3.6 [facility] 08:54:00 CHEM PANEL 2021-04-13 113 [facility] 08:54:00 CHEM PANEL 2021-04-13 23 [facility] 08:54:00 CHEM PANEL 2021-04-13 8.5 [facility] 08:54:00 CHEM PANEL 2021-04-13 10.6 [facility] 08:54:00 CHEM PANEL 2021-04-13 36 [facility] 08:54:00 HEMATOLOGY 2021-04-13 5.2 [facility] 08:54:00 HEMATOLOGY 2021-04-13 3.31 [facility] 08:54:00 HEMATOLOGY 2021-04-13 10.4 [facility] 08:54:00 HEMATOLOGY 2021-04-13 30.6 [facility] 08:54:00 HEMATOLOGY 2021-04-13 92.5 [facility] 08:54:00 HEMATOLOGY 2021-04-13 08:54:00 Test Item Value Reference Range Interpretation Comme nts MCH (test code = MCH) 31.4 pg 27.0-31.0 [facility] EgqqtpvDKAVVSTCVO8375-43-96 08:54:0034.0[facility]MATOLOGY 2021-04-13 08:54:0015.4[facility] UzsumcdMXOTWPKECN7055-59-84 08:54:26699Fjreptnl PgzgoeoURWWLBZOQY0924-45-09 08:54:008.0[facility]annCHEM DKTAE0462-47-60 22:00:002.0[facility] QdomabgENNKNMIAZJPD2884-42-14 22:00:003.5[facility] CHEM RFFMX2762-41-58 10:43:0078[facility]annCHEM AZYKZ2512-15-65 10:43:0023 [facility]annCHE[facility] DJMVK9601-79-99 10:43:001.52[facility]annCHEM PANEL 2021-04-12 10:43:48446Uaidofeb HermannCHEM GCYVC0624-66-68 10:43:003.1[facility]annCHEM MVAZG0021-75-07 10:43:94111Vjpyhbqx HermannCHEM KSIUV4981-76-57 10:43:0021[facility]annCHEM RTKHN1616-42-98 10:43:008.6[facility]annCHEM ASCPY0346-32-47 10:43:0011.1[facility]annCHEM FIKLP1140-03-37 10:43:0036 [facility]annCHE[facility] IWEXM4096-12-23 10:43:001.2[facility]annHEMATOLOGY 2021-04-12 10:43:006.8[facility] HgpijvoNSJNQCEZQR4815-95-49 10:43:003.32[facility] TclvjkcJNEENEKREE1021-54-90 10:43:0010.6[facility] QjkpbuwMKKLCCZQHC7331-43-48 10:43:0030.7[facility] MtvwpnqIIUMWLALBU9942-27-87 10:43:0092.4[facility] QYPEEVPKJQ3615-04-91 10:43:00 Test Item Value Reference Range Interpretation Comments MCH (test code = MCH) 31.8 pg 27.0-31.0 [facility] UlqsurcZESFBTUJVY6737-40-75 10:43:0034.4[facility]annHEMATOLOGY 2021-04-12 10:43:0015.5[facility] WyrpzpbTUYZMXLPGZ2426-58-69 10:43:66396Rrnpksxg TeamcenJIQAKYRWWV6324-37-82 10:43:008.1[facility]annCHEM FCEDA1980-06-04 10:18:0082[facility]annCHEM XWYZT2341-15-32 10:18:0021[facility]annCHEM IKHUQ0472-28-58 10:18:001.53[facility] HermannCHEM WBVZM7906-29-02 10:18:55079 [facility] DMTLS6860-71-77 10:18:55952Mfrhdtuf HermannCHEM PANEL 2021-04-11 10:18:0023[facility]annCHEM MSVSF0818-22-07 10:18:008.3[facility]annCHEM EEFPL6382-85-27 10:18:0011.6[facility]annCHEM FRXVF0408-32-76 10:18:0036[facility] CrdsgtkVOYGVTGMSL8968-06-43 10:18:007.1[facility] XRNMOOJPBK7763-90-63 10:18:003.46[facility] OdlvduiKIDRFLXOHP9033-03-77 10:18:00 11.0[facility] EoumavnWRPVIOBZJL6916-28-30 10:18:0032.1[facility]annHEMATOLOGY 2021-04-11 10:18:0092.7[facility] OdiylibDJCARPHMHH9143-45-00 10:18:00 Test Item Value Reference Range Interpretation Comments MCH (test code = MCH) 31.7 pg 27.0-31.0 [facility] SdmutgaCMWQMUYSNL8360-91-46 10:18:0034.2[facility] HermannHEMATOLOGY 2021-04-11 10:18:0015.3[facility] FtmxtrrBJIFCZTTUL8588-46-47 10:18:71866Ieososer AxoqxxoCAVEZKDQMR4587-51-92 10:18:008.3[facility] HermannCHEM RZPWP6736-99-41 10:22:002.0[facility]annCHEM NXFSY8256-60-02 10:22:0018[facility]annCHEM YFWOG2138-45-25 10:22:0025[facility]annCHEM EJUGM1509-84-05 10:22:000.6 [facility]annCHE[facility] MVBOU3260-98-79 10:22:000.4[facility] HermannCHEM PANEL 2021-04-08 10:22:000.2[facility]annCHEM PSDRW7609-15-34 10:22:004.2[facility]annCHEM PBKSG1205-27-40 10:22:87642Bizolqvd HermannCHEM URKCH3962-36-76 10:22:002.2[facility]annCHEM RPDAY4285-47-45 10:22:00 Test Item Value Reference Range Interpretation Comments A/G Ratio (test code = A/G Ratio) 0.9 1 0.7-1.6 [facility]annCHEM BCGMI8329-04-38 10:22:004.0[facility]annCHEM PANEL 2021-04-08 10:22:006.0[facility] UmrvczzDZQKZYFVQP8597-16-79 10:22:0080.0[facility] SddzliuSJNZQUVDBP9450-17-70 10:22:009.4[facility] VsxdiwnOEHYABRYMH6966-84-25 10:22:007.4[facility] YoybzhvXUGKSPTBOS2800-40-35 10:22:002.1[facility] WHHMJGUMDI4135-84-85 10:22:001.1[facility] NdxopxeBQUQQVHXWK2255-39-52 10:22:006.7 [facility] EwpbgenBULZPANYDW9143-53-92 10:22:000.8[facility]annHEMATOLOGY 2021-04-08 10:22:000.6[facility] QrizojeUWLDMKSUGW1726-70-29 10:22:000.2[facility] OmweiwkCRTMOWZBHY7485-68-70 10:22:000.1[facility] HermannCARDIAC JLFVYEZ5027-80-83 15:20:0057[facility]annCARDIAC SRHLSFO0512-57-98 15:20:000.36[facility]annCEFTRIAXONE:SUSC:PT:ISOLATE:ORDQN:BVQ1929-14-96 15:20:00Enterococcus SpeciesMemorial HermannCEFTRIAXONE:SUSC:PT:ISOLATE:ORDQN:ZPH6053-59-40 15:20:00 Escherichia coli ESBLMemorial HermannCHEM APKJW5745-08-54 15:20:000.16[facility]annCHEM PKPGF9747-11-75 15:20:001.3[facility]annCHEM MFUPF4023-99-22 15:20:005.2[facility]annCHEM FHPHX9383-88-32 15:20:002.2[facility]annCHEM DGMYR5717-97-31 15:20:0019[facility]annCHEM ENLKZ4631-09-17 15:20:0017 [facility]annCHEM CFEHC0986-55-99 15:20:03958Tmpxgirs HermannCHEM PANEL 2021-04-07 15:20:000.6[facility]annCHEM QWETX5791-02-29 15:20:000.4[facility]annCHEM VCUUW2232-87-57 15:20:000.2[facility]annCHEM JUULQ9124-45-37 15:20:003.0[facility]annCHEM ELLKV7536-53-89 15:20:00 Test Item Value Reference Range Interpretation Comments A/G Ratio (test code = A/G Ratio) 0.7 1 0.7-1.6 [facility] PNIIT3146[facility]25-14 15:20:0035[facility]annHEMATOLOGY 2021-04-07 15:20:00 Test Item Value Reference Range Interpretation Comments PT (test code = PT) 13.1 s 12.0-14.7 [facility] CenterWazqdgkMUCNTBEBBN3520-21-25 15:20:00 Test Item Value Reference Range Interpretation Comments INR (test code = INR) 1.00 1 0.85-1.17 [facility] CenterLtfzsskVPHISQFPEM0981-48-05 15:20:00 Test Item Value Reference Range Interpretation Comments PTT (test code = PTT) 34.2 s 22.9-35.8 [facility] CenterFbwbmqvFAIHXPQBMP6511-89-60 15:20:0080.2[facility]annHEMATOLOGY 2021-04-07 15:20:0011.8[facility] LnvrinzVALBVHMYZL0551-13-07 15:20:006.1[facility] NtbrkbtOCGNHVCSTS7915-49-48 15:20:000.6[facility] HiouydjDDXABIYMFV0720-89-61 15:20:001.3[facility] LfgcrbmKKGEQWHIJT1517-30-97 15:20:005.0[facility] OCOZNVSVSR6704-21-32 15:20:000.7[facility] EbfdkbjRUKDNWHTVT6826-38-06 15:20:000.4 [facility] FnkykoxYVKTKOBCTN0946-32-50 15:20:000.1[facility] HermannIMMUNOLOGY 2021-04-07 15:20:00Not Detected (04/07/21 10:20 AM)[facility] YYAJR8850-42-77 15:20:00Marked *ABN*(04/07/21 10:20 AM)[facility] VWPAS9540-24-32 15:20:00 Test Item Value Reference Range Interpretation Comments UA Spec Grav (test code = UA Spec 1.011 1 Grav) [facility] VZMMU8875-07-11 15:20:00 Test Item Value Reference Range Interpretation Comments UA pH (test code = UA pH) 7.0 1 5.0-8.0 [facility] JVNFI7198-15-01 15:20:00Negative *NA*(04/07/21 10:20 AM)[facility] DYHNI1145-50-12 15:20:00Large *ABN*(04/07/21 10:20 AM)[facility] GKJRE1830-90-15 15:20:002.0[facility] BGHCV3337-24-20 15:20:00Negative (04/07/21 10:20 AM)[facility] AWPKD6312-66-84 15:20:00Moderate *ABN*(04/07/21 10:20 AM)[facility] RYBDA0216-86-61 15:20:66444Kyilcrqs HermannURINE AND RWHFP3743-24-59 15:20:0011[facility] HermannCARDIAC SKKMYUW2583-24-96 15:10:516815Ruolszdy Violet CHEM LUDNN8019-40-06 10:12:0087[facility]annCHEM MDZJB2833-94-99 10:12:0028 [facility]annCHEM AHZDC4766-71-26 10:12:001.65[facility] HermannCHEM PANEL 2021-03-17 10:12:16159Lsmeffqy HermannCHEM MUEMY4294-22-61 10:12:004.1[facility] HermannCHEM EOPBA4090-99-95 10:12:94757Jryhxebl HermannCHEM TQPHL1513-69-76 10:12:0019[facility]annCHEM HXRUG9524-86-59 10:12:008.4[facility] HermannCHEM PAICK2721-80-06 10:12:002.2[facility]annCHEM PDZZS0075-26-52 10:12:0022 [facility]annCHEM GBPGL5276-70-51 10:12:0023[facility] HermannCHEM PANEL 2021-03-17 10:12:0012.1[facility] HermannCHEM FSAJU2688-69-77 10:12:00 Test Item Value Reference Range Interpretation Comments B/C Ratio (test code = B/C Ratio) 17 1 6-25 [facility]annCHEM QLBMI6527-61-02 10:12:0033[facility]annCHEM PANEL 2021-03-17 10:12:004.1[facility] HermannCHEM HWXVE0059-43-30 10:12:79645Isamlvvc HermannCHEM EXMQK5307-73-76 10:12:000.6[facility]annCHEM VJYMF5644-70-15 10:12:001.9[facility] HermannCHEM EUDMP4757-25-17 10:12:00 Test Item Value Reference Range Interpretation Comments A/G Ratio (test code = A/G Ratio) 1.2 1 0.7-1.6 [facility]annCHEM RTVFX6767-18-17 10:12:001.9[facility] HermannCHEM PANEL 2021-03-17 10:12:004.8[facility] AiuzluzUOCGCVUHFP1908-43-56 10:12:005.5[facility] TafefbgYDWERWBHZG9427-92-58 10:12:002.99[facility] YyehhelCUNSEMTASM7854-41-63 10:12:009.5[facility] NmywetoWPEJKKJMJV2469-83-05 10:12:0028.1[facility] DNMDCCVLNF7882-60-56 10:12:0094.2[facility] HcxffbqMILFSBAOIS6956-29-70 10:12:00 Test Item Value Reference Range Interpretation Comments MCH (test code = MCH) 31.8 pg 27.0-31.0 [facility] GgofveeHGBFKKFYEO8749-23-90 10:12:0033.8[facility] HermannHEMATOLOGY 2021-03-17 10:12:0017.0[facility] YbgqpvjPRGWDKPLGI8588-13-74 10:12:84629Ckhigvvb JkfpvfaKPIIQBKANT5068-57-34 10:12:009.2[facility] DhwxkpnRABOAGHQOH4483-00-28 10:12:0082.5[facility] NcacstmUSEDPPECLI8792-11-26 10:12:009.1[facility] WJENUFQDQI8275-18-37 10:12:007.3[facility] OscydvbUVQMQJLSYP4783-89-55 10:12:000.1 [facility] NmzzunlZFJBOUVHNC5626-33-34 10:12:001.0[facility] HermannHEMATOLOGY 2021-03-17 10:12:004.5[facility] FkkcwyiWAKXCWEBFW7329-55-41 10:12:000.5[facility] IepprabHPRBOBAUVQ6328-10-13 10:12:000.4[facility] GawdylaKDJDPOMGZV2433-67-62 10:12:000.1[facility] HermannCHEM DNAAN4280-71-58 09:55:004.6[facility] HermannCHEM ZOAZQ2657-01-08 09:55:0082[facility] HermannCHEM XPSTX9165-84-99 09:55:0029 [facility]annCHEM TJXAX5666-18-75 09:55:001.80[facility] HermannCHEM PANEL 2021-03-16 09:55:69436Zkwdkmlw HermannCHEM FQWWW2658-89-48 09:55:004.0[facility] HermannCHEM RMDUC3083-76-64 09:55:51323Ahupkvid HermannCHEM HFHAD0273-17-16 09:55:0021[facility] HermannCHEM KRNEC1981-17-67 09:55:008.5[facility] HermannCHEM DBYVO2406-43-36 09:55:001.9[facility]annCHEM NXOCF1286-30-63 09:55:0028 [facility]annCHEM DOAVE3470-69-56 09:55:000.4[facility] HermannCHEM PANEL 2021-03-16 09:55:0012.0[facility] HermannCHEM ICOLN1931-78-06 09:55:00 Test Item Value Reference Range Interpretation Comments B/C Ratio (test code = B/C Ratio) 16 1 6-25 [facility]annCHEM KPTHY9142-36-08 09:55:0030[facility] HermannCHEM PANEL 2021-03-16 09:55:003.9[facility] HermannCHEM VHZUR5942-42-43 09:55:0022[facility] HermannCHEM YGPOD6840-16-20 09:55:11659Plixqesg HermannCHEM ITOEI4861-78-81 09:55:002.0[facility] HermannCHEM WHYJE5465-37-42 09:55:00 Test Item Value Reference Range Interpretation Comments A/G Ratio (test code = A/G Ratio) 1.0 1 0.7-1.6 [facility] HermannCHEM CJLYK5042-85-67 09:55:002.3[facility] HermannHEMATOLOGY 2021-03-16 09:55:006.6[facility] BaofipcPTQHDLZBLN4378-20-01 09:55:003.33[facility] PjzkixrEPUSQQLBVF6999-97-37 09:55:0010.6[facility] MizughvEIQFHEHYDX4640-39-82 09:55:0032.4[facility] KudutzjGNIKRJXGCF1329-24-91 09:55:0097.3[facility] HEDUEZZSRB4261-19-75 09:55:00 Test Item Value Reference Range Interpretation Comments MCH (test code = MCH) 32.0 pg 27.0-31.0 [facility] NxusuicBFMVXVIMYU3095-88-28 09:55:0032.8[facility] HermannHEMATOLOGY 2021-03-16 09:55:0017.0[facility] HjzhvbiQZPTBSDOTE3578-05-79 09:55:17031Wsnchuzx VvwqixmMIYVUHPOHZ3558-69-75 09:55:009.5[facility] RqamnyiXCXMBXJPUF4148-98-28 09:55:0077.5[facility] ZakaqywUOKIKVOYFT7364-22-17 09:55:0011.0[facility] CBIWYBYEKK4286-05-67 09:55:0010.1[facility] WdpjtxaUUETFJHGJS4446-55-07 09:55:00 0.1[facility] LzvicedXFYUJMHIAK3642-09-48 09:55:001.3[facility] HermannHEMATOLOGY 2021-03-16 09:55:005.1[facility] ZbjvvfoODSEXPUUOP4588-44-70 09:55:000.7[facility] PgytdjbQJBNVIDZWU1736-05-77 09:55:000.7[facility] WbxibtoGRTGFFQNNY5889-98-22 09:55:000.1[facility] HermannCHEM UDGKK6556-02-04 11:52:002.4[facility] HermannCHEM HIVBY4362-68-23 11:52:004.3[facility] HermannCHEM PLGDH9156-84-08 11:52:10057 [facility]annCHEM EXBFB4938-43-88 11:52:0027[facility] HermannCHEM PANEL 2021-03-15 11:52:001.81[facility] HermannCHEM DHXKG4406-36-02 11:52:31456Joshnhhz HermannCHEM YZGLE9402-42-43 11:52:003.9[facility] HermannCHEM ZKOTX4804-46-26 11:52:42462Sboyovxb HermannCHEM ZVKIS0416-92-48 11:52:0020[facility] HermannCHEM VRRIY7047-14-09 11:52:008.4[facility] HermannCHEM XQAFE6354-84-31 11:52:002.1 [facility]annCHEM DBSPO7827-64-02 11:52:0022[facility] HermannCHEM PANEL 2021-03-15 11:52:0024[facility] HermannCHEM AUHIE9982-25-17 11:52:000.5[facility] HermannCHEM MMWLN0836-80-81 11:52:0011.9[facility] HermannCHEM TQYXM0675-98-10 11:52:00 Test Item Value Reference Range Interpretation Comments B/C Ratio (test code = B/C Ratio) 15 1 6-25 [facility] HermannCHEM LDUEB1100-31-28 11:52:0029[facility] HermannCHEM PANEL 2021-03-15 11:52:004.4[facility] HermannCHEM DGSIF9611-36-73 11:52:36434Toivbnno HermannCHEM UMQDB6615-64-48 11:52:002.3[facility] HermannCHEM ARYGU7805-71-16 11:52:00 Test Item Value Reference Range Interpretation Comments A/G Ratio (test code = A/G Ratio) 0.9 1 0.7-1.6 [facility] TdwejjhAZRVYWKMJN5562-87-57 11:52:007.0[facility] HermannHEMATOLOGY 2021-03-15 11:52:003.33[facility] HvmmgruWFZODBYGUN8757-07-24 11:52:0010.7[facility] FilhcbeJNMDQSJAEK7565-84-61 11:52:0031.1[facility] RryljfpENUAUZTJGV2478-12-54 11:52:0093.3[facility] UllouspZVLQJHMYGE0604-61-04 11:52:00 Test Item Value Reference Range Interpretation Comments MCH (test code = MCH) 32.1 pg 27.0-31.0 [facility] DbyssvvRBOIGYKMYX1250-27-14 11:52:0034.4[facility] HermannHEMATOLOGY 2021-03-15 11:52:0016.9[facility] JzeimssTBNCBTMAFP6343-88-09 11:52:45086Lsjkxysm AlsyvryVULXUNRKCE4382-88-06 11:52:009.0[facility] RrrjyurJJLTVVWIMM8547-64-18 11:52:0079.7[facility] BbctdjuOCAHPNDNRM0479-06-41 11:52:0011.3[facility] PQOENTDWGL9656-06-91 11:52:007.3[facility] WbqirveLZUQZQJLBJ3862-34-27 11:52:000.6 [facility] ZhxltwiTUDJVMJYAM6195-21-94 11:52:001.1[facility] HermannHEMATOLOGY 2021-03-15 11:52:005.6[facility] KyftfsdNBKYMOWYUV3157-77-32 11:52:000.8[facility] OitqbtyYWFQBHQXFT4232-02-94 11:52:000.5[facility] QjbfcvkYETNHTAECX8553-64-01 11:52:000.1[facility] TvpllhbERWYOJDITHIOR0014-66-46 10:36:0018.1[facility] CARDIAC CAJWQBS7595-42-04 01:41:000.40[facility] HermannCHEM LMWRL8024-27-26 01:41:0080[facility] HermannCHEM BWMYB0558-24-05 01:41:0018[facility] HermannCHEM VEEIR8161-93-37 01:41:001.44[facility] HermannCHEM XSLRX6251-18-04 01:41:95461 [facility]annCHEM XCXQP9814-61-82 01:41:003.2[facility] HermannCHEM PANEL 2021-03-10 01:41:12773Oqrrsxsy HermannCHEM IGGEM2434-03-66 01:41:0023[facility] HermannCHEM ZQCHK2576-40-65 01:41:0016.2[facility] HermannCHEM PGUMV5860-19-92 01:41:007.8[facility] HermannCHEM LOFOY6448-35-58 01:41:00 Test Item Value Reference Range Interpretation Comments B/C Ratio (test code = B/C Ratio) 12 1 6-25 [facility]annCHEM PXOMD7267-72-98 01:41:002.5[facility] HermannCHEM PANEL 2021-03-10 01:41:0024[facility] HermannCHEM DRMVE6344-91-73 01:41:0034[facility] HermannCHEM RBWMP1054-14-99 01:41:0039[facility] HermannCHEM GXRWU3172-38-28 01:41:004.8[facility] HermannCHEM PVCFH5264-16-98 01:41:0094[facility] HermannCHEM QMZTV6396-46-62 01:41:001.1[facility] HermannCHEM XKVMV0985-10-92 01:41:002.3 [facility]annCHEM LIBRU3263-59-66 01:41:00 Test Item Value Reference Range Interpretation Comments A/G Ratio (test code = A/G Ratio) 1.1 1 0.7-1.6 [facility] HermannCARDIAC WJZBYXI2834-85-67 21:10:000.43[facility] HermannCHEM PANEL 2021-03-09 21:10:001.7[facility] KzysgzeAELLLIVPLEMY3540-41-55 21:10:002.4[facility] HermannCARDIAC HLYHVNK0298-87-01 18:47:884392Svmtavhg HermannCHEM PANEL 2021-03-09 18:47:001.7[facility]UR[facility] AND MLFUS2917-63-44 16:00:00Yellow *NA*(03/09/21 11:00 AM)[facility] PTNYZ4525-58-28 16:00:00Cloudy *ABN*(03/09/21 11:00 AM)[facility] JPJEX4375-62-63 16:00:00 Test Item Value Reference Range Interpretation Comments UA Spec Grav (test code = UA Spec 1.020 1 Grav) [facility] HGXCO7389-41-61 16:00:00 Test Item Value Reference Range Interpretation Comments UA pH (test code = UA pH) 8.0 1 5.0-8.0 [facility] CRQUM0711-55-66 16:00:00Negative (03/09/21 11:00 AM) [facility] QNLPE4546-47-27 16:00:00Negative *NA*(03/09/21 11:00 AM)[facility] WYSKQ9798-07-52 16:00:00Small *ABN*(03/09/21 11:00 AM)[facility] MNWHI1467-39-12 16:00:00Moderate *ABN*(03/09/21 11:00 AM)[facility] HYXXB2279-58-60 16:00:000.2[facility] URINE AND CXEXD6269-47-89 16:00:00Negative (03/09/21 11:00 AM)[facility] URINE AND ROBED7601-46-00 16:00:00Moderate *ABN*(03/09/21 11:00 AM)[facility] OuchgfiXUZVBKVJOC7740-34-22 15:17:00Not Detected (03/09/21 10:17 AM)[facility] HermannCARDIAC JCHUQPQ0986-57-56 14:40:14765Lragvjxm HermannCARDIAC ENZYMES 2021-03-09 14:40:000.44[facility] HermannCHEM WNBPD2707-55-73 14:40:0074[facility] HermannCHEM NTOAF1309-71-29 14:40:0018[facility] HermannCHEM KCNVD2956-65-26 14:40:001.63[facility] HermannCHEM OSJEK1481-38-80 14:40:22908Tzdpkxev HermannCHEM MWMFX6306-06-89 14:40:002.2[facility] HermannCHEM SSPNL9904-04-44 14:40:27947 [facility] HermannCHEM GLJKX3788-20-06 14:40:0023[facility] HermannCHEM PANEL 2021-03-09 14:40:0017.2[facility] HermannCHEM CUTTN0038-61-23 14:40:008.2[facility] HermannCHEM ZULXG8768-24-25 14:40:0033[facility] PbvzhilLMADBHQVDB0622-14-41 14:40:007.5[facility] HzejnyyKZKJXAHXGN6528-57-17 14:40:003.85[facility] LVTQDSWKVV2005-82-46 14:40:0012.0[facility] IwrmgdiESKNNVDHCO4534-18-26 14:40:00 35.3[facility] LqeiaxbINMQOLHBFC5827-59-87 14:40:0091.7[facility] HermannHEMATOLOGY 2021-03-09 14:40:00 Test Item Value Reference Range Interpretation Comments MCH (test code = MCH) 31.3 pg 27.0-31.0 [facility] OlykzcdMQAOLDQVEQ7703-96-13 14:40:0034.1[facility] HermannHEMATOLOGY 2021-03-09 14:40:0017.6[facility] CniniepUSYEVTIDZJ8225-02-63 14:40:69681Mvxwsebm DczxnlrTIWXOKURIA0955-29-93 14:40:008.7[facility] QxphajcKJKBURCZSL5022-64-47 14:40:0089.1[facility] UnrzcihYHBQPMSMIF8478-02-16 14:40:005.8[facility] ILQFPFUZOQ5094-43-12 14:40:004.9[facility] JyvezhiGTQEWRORIR0572-56-92 14:40:000.2 [facility] NhdmvvqZUNOCKZDAH4001-46-40 14:40:006.7[facility] HermannHEMATOLOGY 2021-03-09 14:40:000.4[facility] PjhvwcjZSSTSDXMSV3535-43-68 14:40:000.4[facility][U] XRAY ANKLE MIN 3 VWS LEFT [id number] 10:49:00Images acquired, not reported on this accession number.[facility][U] XRAY FOOT MIN 3 VWS LEFT [id number] 10:01:00Images acquired, not reported on this accession number. [facility][U] XRAY ANKLE MIN 3 VWS LEFT [id number] 09:54:00Images acquired, not reported on this accession number.[facility][U] XRAY FOOT MIN 3 VWS RIGHT [id number] 09:54:00Images acquired, not reported on this accession number.[facility][U] XR FOOT MIN 3 VWS JMXGNJTEL4516-71-74 11:12:00 Images acquired, not reported on this accession number.[facility] PhysiciansIMMUNOLOGY 2020-03-12 16:35:00Not Detected (03/12/20 11:35 AM)[facility] HermannCHEM PANEL 2020-03-12 15:50:0054[facility] HermannCHEM GBCQR7009-03-97 15:50:0050[facility] HermannCHEM LFMHJ9134-06-25 15:50:002.77[facility] HermannCHEM QKJPQ1552-52-82 15:50:11930Tjijnfyz HermannCHEM GDAHZ0253-24-70 15:50:003.8[facility] HermannCHEM HRPZF4574-32-32 15:50:0094[facility] HermannCHEM XQIQU4177-54-24 15:50:0021 [facility] HermannCHEM NULTZ8691-71-56 15:50:0010.7[facility] HermannCHEM PANEL 2020-03-12 15:50:006.9[facility] HermannCHEM UVVRP6304-55-07 15:50:003.3[facility] HermannCHEM HONUM8659-59-85 15:50:0041[facility] HermannCHEM OQMDT3943-25-78 15:50:0044[facility] HermannCHEM ZWACD4203-94-98 15:50:98357Ojpcsmuv HermannCHEM LLUAG9510-83-50 15:50:000.4[facility] HermannCHEM DPWUC1727-29-77 15:50:0018.8 [facility] HermannCHEM LOEES4331-08-08 15:50:00 Test Item Value Reference Range Interpretation Comments B/C Ratio (test code = B/C Ratio) 18 1 6-25 [facility]annCHEM CMMSX2192-29-69 15:50:003.6[facility] HermannCHEM PANEL 2020-03-12 15:50:00 Test Item Value Reference Range Interpretation Comments A/G Ratio (test code = A/G Ratio) 0.9 1 0.7-1.6 [facility]annCHEM DTAVT4019-66-66 15:50:0018[facility] HermannHEMATOLOGY 2020-03-12 15:50:0078.9[facility] GgmbvlzPTEHTKNEHP5808-45-12 15:50:0011.4[facility] GyijawjJAWFLJQSWZ2959-79-16 15:50:008.7[facility] ElhkbuhQUFIGJZBFS3602-24-17 15:50:001.0[facility] WrramffONQIFVWEXQ0752-43-70 15:50:006.3[facility] SETCNXPYTY9335-98-17 15:50:000.9[facility] WlcphszLDRMQOOINH2976-58-27 15:50:000.7 [facility] ZeqppcyQJIPTTUJWC9808-85-68 15:50:000.1[facility] HermannHEMATOLOGY 2020-03-12 15:50:008.0[facility] DxxobecCNRGWSLHYC5786-01-75 15:50:004.07[facility] LpsuuhvDFZKIJJASI9893-06-07 15:50:0012.6[facility] FfgnoqkEAPOAXPTYY7512-38-77 15:50:0037.7[facility] EaijkdkQHGQPUUBOT5880-86-40 15:50:0092.7[facility] QYXXSDKUOP0187-14-44 15:50:00 Test Item Value Reference Range Interpretation Comments MCH (test code = MCH) 31.1 pg 27.0-31.0 [facility] TsuuqfrOWEXPIKADP8394-01-21 15:50:0033.5[facility] HermannHEMATOLOGY 2020-03-12 15:50:0016.0[facility] QchqefoPGZZAEMPXE4641-23-16 15:50:38461Xgebwpgv UnloeoeEEDPRAWIUO2939-35-73 15:50:007.9[facility][U] XRAY FOOT MIN 3 VWS LEFT [id number] 14:58:00Images acquired, not reported on this accession number.[facility][U] XRAY FOOT MIN 3 VWS LEFT [id number] 13:09:00Images acquired, not reported on this accession number.[facility] Extremity lower venous Doppler Unilat [id number] 12:28:00EXAM: Ext Lower Venous Doppler Unilat USHISTORY: - M14.672 Charcot's joint, left ankle and foot, S93.612A Sprainof tarsal ligament of left foot, initial encounterCOMPARISON: NoneTECHNIQUE:The left deepvenous system was evaluated with mcknight scale, color Doppler, andspectral Doppler sonography. Both augmentation and compression maneuvers wereperformed.FINDINGS: The common femoral, femoral, popliteal, and posterior tibial veinsare normally compressible and augment normally. IMPRESSION:No evidence of DVT.--Read by: Donna Avila MDDictated Date/time: 05/01/19 15:37Electronically Signed by: Donna Avila MD 05/01/1915:37FINAL REPORT[facility][U] XRAY FOOT MIN 3 VWS LEFT [id number] 2019-04-26 09:32:00Images acquired, not reported on this accession number.[facility][U] XRAY FOOT MIN 3 VWS LEFT [id number] 09:29:00Images acquired, not reported on this accession number.[facility][U] XRAY ELBOW MIN 3 VWS LEFT [id number] 09:28:00Images acquired, not reported on this accession number. [facility][U] XRAY FOOT MIN 3 VWS LEFT [id number] 13:33:00Images acquired, not reported on this accession number.[facility][U] XRAY FOOT MIN 3 VWS LEFT [id number] 09:38:00Images acquired, not reported on this accession number.[facility][U] XRAY FOOT MIN 3 VWS LEFT [id number] 09:22:00Images acquired, not reported on this accession number.[facility][U] XRAY FOOT MIN 3 VWS LEFT [id number] 10:28:00Images acquired, not reported on this accession number.[facility][U] XRAY FOOT MIN 3 VWS RIGHT [id number] 2018-12-15 14:38:00Images acquired, not reported on this accession number.[facility][U] XRAY FOOT MIN 3 VWS LEFT [id number] 14:38:00Images acquired, not reported on this accession number.[facility] WettocvwveMPPOLRQKOD7470-88-50 10:54:00 260[facility] PpcmjgaSPMIBCESRI8163-69-31 10:54:007.2[facility] HermannCHEM PANEL 2018-11-24 10:54:001.3[facility] HermannCHEM MTOMO9305-56-37 10:54:0018[facility] HermannCHEM ZSCRK0836-25-51 10:54:001.4[facility] HermannCHEM UCHZO8450-39-28 10:54:0082[facility] HermannCHEM HUBAO8427-89-39 10:54:0029[facility]annCHEM IPPHZ7571-18-35 10:54:0020[facility]annCHEM WSZWT5225-54-63 10:54:002.4 [facility]annCHEM RPZON6804-73-00 10:54:0085[facility]annCHEM PANEL 2018-11-24 10:54:0010.8[facility] HermannCHEM CIBBQ4479-11-27 10:54:0025[facility]annCHEM KMXRN0674-47-87 10:54:0019[facility]annCHEM MVAQB1358-38-12 10:54:002.07[facility] HermannCHEM FZZWX1842-28-36 10:54:005.7[facility] HermannCHEM XVJFH5004-20-00 10:54:78277Nfnehcxv HermannCHEM SKAAS5058-82-77 10:54:003.8 [facility]annCHEM GFOHQ4472-98-85 10:54:00393Eaxtnksj HermannCHEM PANEL 2018-11-24 10:54:0011.8[facility] HermannCHEM NZMUU2042-86-35 10:54:00 Test Item Value Reference Range Interpretation Comments B/C Ratio (test code = B/C Ratio) 14 04-18 [facility] HermannCHEM ALJEH3866-91-08 10:54:00 Test Item Value Reference Range Interpretation Comments A/G Ratio (test code = A/G Ratio) 0.7 1 0.7-1.6 [facility] HermannCHEM DJHKN4500-52-17 10:54:003.3[facility] HermannELECTROLYTES 2018-11-24 10:54:0011.8[facility] NzqpwzyHNYPEJGMTANC3187-29-83 10:54:00 Test Item Value Reference Range Interpretation Comments B/C Ratio (test code = B/C Ratio) 14 04-18 [facility] CqzpjgtQMKFXNRUWJQD6659-19-61 10:54:003.3[facility] HermannELECTROLYTES 2018-11-24 10:54:00 Test Item Value Reference Range Interpretation Comments A/G Ratio (test code = A/G Ratio) 0.7 1 0.7-1.6 [facility] ZjtjtxnWXTFFDYLSNOB4755-54-03 10:54:31594Dulbqiwm HermannELECTROLYTES 2018-11-24 10:54:003.8[facility] DulwghuBZGDLCNTASHW4607-33-35 10:54:87160Lshpengv HowrhmxMCIQSPFTPBLL9717-73-40 10:54:0010.8[facility] HermannELECTROLYTES 2018-11-24 10:54:0085[facility] HafrmhnZPWBSNSOPLLD6135-24-89 10:54:0029[facility] LudltflPTTWBKCQZKHN9350-97-49 10:54:0020[facility] KmkqaggQXZXKWRDXNFH2267-71-67 10:54:002.4[facility] HcgiznjJGLOHYUNCSJI8094-43-65 10:54:0018[facility] LEHXTTVAOCJM2339-08-86 10:54:002.07[facility] ZminqxjZVMXOEILBXAA0080-76-07 10:54:0019[facility] QwbzlbbBSPYMKSOQRNJ7394-92-77 10:54:0025[facility] FBMVWOLVZFBZ1006-25-81 10:54:001.4[facility] BpmcujaZZZULKZTZDEZ6291-57-49 10:54:005.7[facility] DheebxtDQELPWDUIOYA4304-75-98 10:54:0082[facility] LXALZTDSNW6398-38-15 10:54:0075.4[facility] YzcdanlWMDWRAHGIN6330-13-00 10:54:00 13.2[facility] CxhmtmpBLOGOWOVVB0181-58-22 10:54:0011.1[facility] HermannHEMATOLOGY 2018-11-24 10:54:000.3[facility] UatxpcmRHNJZZMOLC5560-92-43 10:54:005.0[facility] PtuscwlTTLXQBXTLL2462-12-65 10:54:000.9[facility] XdqlthvFVDFAWTQHF7700-48-09 10:54:000.7[facility] KvznwvqJZUMVHCLON5063-03-76 10:54:006.6[facility] FTCTNKYYDY9686-37-46 10:54:003.30[facility] VsfumpvHJOBEWDPAG2906-25-16 10:54:00 11.3[facility] EokitjcHCAXGULUOU2772-26-01 10:54:0032.1[facility] HermannHEMATOLOGY 2018-11-24 10:54:0097.3[facility] MmelrbxLRZZGEHYOP3563-56-75 10:54:00 Test Item Value Reference Range Interpretation Comments MCH (test code = MCH) 34.3 pg 27.0-31.0 [facility] DzcpmtuMEWZTGWLUF9587-46-67 10:54:0035.3[facility] HermannHEMATOLOGY 2018-11-24 10:54:0015.5[facility] HermannCHEM PIMXM2195-50-94 12:24:003.2[facility] HermannCHEM PNDTT8040-79-00 12:24:002.6[facility] HermannCHEM VMEYR8998-57-66 12:24:00 Test Item Value Reference Range Interpretation Comments A/G Ratio (test code = A/G Ratio) 0.9 1 0.7-1.6 [facility] DRPWI9999-87-33 12:24:0014.8[facility]annCHEM PANEL 2018-11-23 12:24:00 Test Item Value Reference Range Interpretation Comments B/C Ratio (test code = B/C Ratio) 16 1 6-25 [facility] BEZQB7835-79-54 12:24:0090[facility]CHE[facility] PANEL 2018-11-23 12:24:0092[facility] TZDAL6022-42-61 12:24:004.9[facility]annCHE[facility] KIIUO4162-42-39 12:24:0020[facility]CHE[facility] KDYHE0498-79-76 12:24:0036[facility]CHE[facility] IMAHP9270-17-23 12:24:002.3[facility]annCHE[facility] IPUES6840-94-37 12:24:94085Qseqogte HermannCHEM ASGDQ2973-40-52 12:24:003.8 [facility] HOASR3087-55-83 12:24:49482Mdepqvws HermannCHEM PANEL 2018-11-23 12:24:0011.5[facility]annCHE[facility] ZQWTG0495-66-36 12:24:0023[facility]annCHE[facility] MNOFX4042-47-21 12:24:0023[facility]annCHE[facility] WGDZJ8852-70-65 12:24:0022[facility]annCHE[facility] LPDEM3495-79-77 12:24:002.27[facility]annCHE[facility] DGQQJ7840-41-91 12:24:001.8[facility] ZxtmbzqJJYSBLRBMEPH3208-86-86 12:24:06239 [facility] BfgyookKQESBFFTKRHT1393-72-24 12:24:003.8[facility] HermannELECTROLYTES 2018-11-23 12:24:99439Roehqumm HlhlymwUCXBEBTLVUTZ0356-47-75 12:24:0011.5 [facility] NlmqrtiIGPXROULKJWS4829-68-04 12:24:0092[facility]annELECTROLYTES 2018-11-23 12:24:0036[facility] NroiztaWWJEEPZSFUIS6738-17-94 12:24:0020[facility] CcxqvmrOZNXETHJCTPW3939-54-62 12:24:002.3[facility] XvjfoytWUXJNYPAXLUR7778-80-83 12:24:0023[facility] UmbysdnNFVZNTQVNATX4703-97-90 12:24:002.27[facility] YZZJRCNDSZLF6202-88-09 12:24:0022[facility] UghtlbyGROIQRHSRZZD4160-45-95 12:24:00 23[facility] CcnqgujIFTJOZQKMZMD4201-07-07 12:24:004.9[facility]annELECTROLYTES 2018-11-23 12:24:0090[facility] LfqpskgVOGXAECXELKB1182-78-28 12:24:001.8[facility] BwawtesVGTQISUPKBQW1294-86-23 12:24:0014.8[facility] ZdeivhbRWEHEGXBBERH9512-50-89 12:24:00 Test Item Value Reference Range Interpretation Comments B/C Ratio (test code = B/C Ratio) 16 1 6-25 [facility] CpswplhYOKUOREDTUEQ8793-67-12 12:24:002.6[facility]annELECTROLYTES 2018-11-23 12:24:00 Test Item Value Reference Range Interpretation Comments A/G Ratio (test code = A/G Ratio) 0.9 1 0.7-1.6 [facility] AehyowzOUUHNRQZCH0801-23-24 12:24:0078.6[facility]annHEMATOLOGY 2018-11-23 12:24:0010.1[facility] SfapfezXDFTXMTTSZ7047-54-70 12:24:0010.9[facility] QkvgiqfZKCWVGFMEN4115-39-48 12:24:000.4[facility] NxlbbxzRDWXGSABUI9020-75-41 12:24:006.5[facility] OhdzdrhTHWLVJEDWZ6899-36-03 12:24:000.8[facility] GUCXTXHMIR2057-79-83 12:24:000.9[facility] CvngdywEPRWGJPLUA6271-86-68 12:24:008.2 [facility] YdmjxjpNYUUAPARGJ8469-49-05 12:24:003.07[facility]annHEMATOLOGY 2018-11-23 12:24:0010.6[facility] CemufvgDNPGAPLYKT1786-52-45 12:24:0029.7[facility] AuycghcLANDSXFGYX2298-84-55 12:24:0096.7[facility] CwgnnnaQLXIGOFBII8555-36-11 12:24:00 Test Item Value Reference Range Interpretation Comments MCH (test code = MCH) 34.4 pg 27.0-31.0 [facility] JdlobmwYJQWQLVJZE1398-64-48 12:24:0035.5[facility]annHEMATOLOGY 2018-11-23 12:24:0015.7[facility] QilrtatSWAGOGXSRE9128-82-41 12:24:62158Lksyivuq OdjkpasPBXIVOASPA0709-29-74 12:24:007.4[facility]annCHEM ELFAM2380-34-35 20:09:0014[facility]annCHEM UEFYL2484-81-99 20:09:00<10[facility] CHEM RAQVZ1359-00-65 20:09:00<10[facility]annCHEM VLKRL4062-35-11 20:09:00 42.7[facility] FmmthsbPWYLIQTJHNHQ7006-01-67 20:09:49221Zqpownio [facility] CNECKJDXFPET3492-33-22 20:09:003.2[facility] KgswnyiMQOUNSIUHOTZ0260-25-28 20:09:0097[facility] SikfdgsOAWFPIRULULS7156-56-33 20:09:002.61[facility] YOHJLMXBAHGR3477-02-49 20:09:0019[facility] AxlyqrhGWEMDXPDSILW1177-24-48 20:09:00 116[facility] BwyxdzbPTKZAOJETRIU8021-07-32 20:09:0039[facility]annELECTROLYTES 2018-11-22 20:09:0027[facility] RbczaioNNTKEECQZBZM7637-53-52 20:09:0011.2[facility] GrbrefmKLRWRXTZXHLV5827-14-78 20:09:0013.1[facility]annENDOCRINOLOGY 2018-11-22 20:09:0013.5[facility] OdnijkkTDVOJWBMYV8652-94-33 20:09:0053.8[facility] VuigvujRKZWUPUQOP8738-84-30 20:09:009.3[facility] TabnjabSJVTJKPYDZ7952-11-37 20:09:0011.1[facility] PdzelskGRDKVNDEBA7975-26-65 20:09:0013.7[facility] HCZJMNHYRT7768-00-94 20:09:0012.1[facility] QmwiupnPXPUXTTKHN5312-37-51 20:09:00 2.64[facility] VgvcjrcSZFRJGFUFX3762-22-18 20:09:000.46[facility] HermannIMMUNOLOGY 2018-11-22 20:09:000.54[facility] McppgzfZICZEOGOLB2640-44-83 20:09:000.67[facility] FbrthnxJRSDCUIOQD2245-68-98 20:09:000.59[facility] RnwuptmIECVRHDGRU0056-34-60 20:09:004.9[facility]annURINE UDJG2115-29-34 11:44:0030[facility]URINE JTEH8362-39-62 11:44:0011.1[facility]annURINE PZVU4339-58-95 11:44:0029 [facility]annCARDIAC VROJCHQ5867-27-33 10:03:21167Nduclgxf HermannCHEM PANEL 2018-11-22 10:03:002.9[facility]annCHEM YZNML0475-57-28 10:03:002.2[facility]annCHEM BJTYK8844-97-05 10:03:0026[facility]annCHEM PGKLM7844-22-71 10:03:0031[facility]annCHEM MFHTD8718-39-62 10:03:75600Ukelguoy HermannCHEM RLQHA2627-33-12 10:03:006.0[facility]annCHEM TYZTE6454-81-49 10:03:003.1 [facility]CHE[facility] FPDYS5043-16-55 10:03:002.9[facility]annCHEM PANEL 2018-11-22 10:03:00 Test Item Value Reference Range Interpretation Comments A/G Ratio (test code = A/G Ratio) 1.1 1 0.7-1.6 [facility] RJFEB9083-49-92 10:03:001.0[facility]annCHEM PANEL 2018-11-22 10:03:00 Test Item Value Reference Range Interpretation Comments B/C Ratio (test code = B/C Ratio) 17 1 6-25 [facility] ExllrvwSVRKNYOVXX2941-36-45 10:03:009.6[facility]annHEMATOLOGY 2018-11-22 10:03:003.61[facility] MdapwpoTPIXWUMYUR4754-02-66 10:03:0012.1[facility] UrhpiroQOOROAHDHY4700-51-69 10:03:0034.5[facility] OvcmekoJCUZRQGKUL1983-29-73 10:03:0095.[facility]orial IizuemwENAGWGCUHV2351-28-58 10:03:00 Test Item Value Reference Range Interpretation Comments MCH (test code = MCH) 33.6 pg 27.0-31.0 [facility] CaiejqnLZRVCJUWHQ4039-08-14 10:03:0035.2[facility]annHEMATOLOGY 2018-11-22 10:03:0015.3[facility] FilsxwmQTCSCCOLZH4416-35-87 10:03:61350Mxvptkrp NscbtmuEADFZTKNVM6163-95-15 10:03:007.4[facility] WgewmgsZBDIPJNQLA4409-95-94 10:03:0080.7[facility] PbtnpskIMBCXMUMWK9313-86-57 10:03:0010.6[facility] HHKTSRKBEQ3182-18-31 10:03:008.3[facility] KubdrupAKRZYFRJNO0523-54-41 10:03:000.4 [facility] YzxndizKUYHVIFJUG0781-77-21 10:03:007.7[facility]annHEMATOLOGY 2018-11-22 10:03:001.0[facility] WrhqjajJIVSSLNBUO0688-38-18 10:03:000.8[facility] HermannPARATHYROID YHNPONG9080-68-99 10:03:0019.3[facility] HermannPARATHYROID LHHRYCU8118-80-82 10:03:001.99[facility] HermannPARATHYROID JXEPEJJ5418-50-07 10:03:002.03[facility] HermannCARDIAC ZNYWPQR7089-20-49 02:26:17628Ugrbyeaq HermannCARDIAC UHMAQZX1209-73-88 02:26:00<0.02[facility]annHEMATOLOGY 2018-11-22 02:26:00Normal (11/21/18 8:26 PM)[facility] VbybmrhOYFZUCVTVK7001-41-70 02:26:00Normal (11/21/18 8:26 PM)[facility] AND BVZJY1231-12-52 01:17:00Light Yellow *NA*(11/21/18 7:17 PM)[facility] STOOL 2018-11-22 01:17:00Clear (11/21/18 7:17 PM)[facility] STOOL 2018-11-22 01:17:00 Test Item Value Reference Range Interpretation Comments UA Spec Grav (test code = UA Spec 1.005 1 Grav) [facility] XKFET3108-05-42 01:17:00 Test Item Value Reference Range Interpretation Comments UA pH (test code = UA pH) 7.0 1 5.0-8.0 [facility] JQVZI0967-28-36 01:17:00Negative (11/21/18 7:17 PM) [facility] XNXZC9746-90-85 01:17:00Negative *NA*(11/21/18 7:17 PM) [facility] VTWKM1266-75-73 01:17:00Negative *NA*(11/21/18 7:17 PM) [facility] EHMRD2200-17-85 01:17:00Small *ABN*(11/21/18 7:17 PM) [facility] XMBLK0167-88-97 01:17:00Negative (11/21/18 7:17 PM) [facility] QTYJM0888-46-09 01:17:00Trace *ABN*(11/21/18 7:17 PM) [facility] MZBDA4476-18-43 01:17:002[facility] AND WRXEY8210-46-66 01:17:00<1[facility]annCHEM MQUUQ4032-42-60 13:33:47972 [facility]CHE[facility] GPAKX7300-63-57 13:33:004.5[facility]annCHEM PANEL 2018-02-03 13:33:0014.6[facility]annCHEM FIZVW8301-57-43 13:33:0043.0[facility]annCHEM LJBPU6497-63-02 13:33:15443Wkxbzwpu HermannCHEM QKXYK4210-48-12 10:47:0022[facility]annCHEM KFVMB6543-69-39 10:47:002.36[facility]annCHEM JASAG9918-29-31 10:47:61495Mymmbiux HermannCHEM DBGFF8188-14-87 10:47:008.2 [facility]CHE[facility] BOWJS7653-76-88 10:47:0016.3[facility]annCHEM PANEL 2017-09-11 10:47:0025[facility]annCHEM GDUHG1518-26-57 10:47:0031[facility]annCHEM ELMOA3789-37-92 10:47:003.3[facility]annCHEM KRHMB0479-72-89 10:47:0096[facility]annCHEM CONUX4893-37-38 10:47:84633Wqfgxfhw HermannCHEM CVLND8286-88-83 10:45:001.3[facility]annCHEM MZFLI2979-55-94 10:45:0030 [facility]CHE[facility] CAVZK4037-35-84 10:45:74857Oyoyjwks HermannCHEM PANEL 2017-09-10 10:45:0023[facility]annCHEM VTNTK8346-64-89 10:45:001.83[facility]annCHEM TYYHH2829-39-66 10:45:0024[facility]annCHEM CKCCP1816-18-06 10:45:0017.1[facility]annCHEM NXJDE3868-72-65 10:45:0097[facility]annCHEM WPELA6428-29-68 10:45:008.3[facility]annCHEM UGUCX8360-15-97 10:45:004.1 [facility]CHE[facility] OGCNN1127-95-71 10:45:30272Ogpbbmuc HermannHEMATOLOGY 2017-09-10 10:45:0037.7[facility] MbvtbipUPUYZUKDOA8977-54-89 10:45:0013.2[facility] HermannBLOOD BANK ZMCRPRK1300-00-27 15:25:00Negative (09/09/17 9:25 AM)[facility]CHE[facility] GVIRN5933-04-41 15:22:49940Jvbfiwjg HermannCHEM GYWBB0556-67-85 15:22:0097[facility]annCHEM XAIFH3052-15-27 15:22:0027[facility]annCHEM TFQHC0355-92-73 15:22:0027[facility]annCHEM SEETP0315-46-86 15:22:004.2 [facility]CHE[facility] PIPOU5337-53-99 15:22:40046Kuuxhvwq HermannCHEM PANEL 2017-09-01 15:22:003.4[facility]annCHEM XCXVK1249-81-17 15:22:009.5[facility]annCHEM ANBEK6556-48-21 15:22:0099[facility]annCHEM GMRVE5547-13-45 15:22:0033[facility]annCHEM IVDWO2833-40-95 15:22:001.8[facility]annCHEM GJSZR1262-50-34 15:22:007.4[facility] HermannCHEM WAPON5849-44-61 15:22:0018 [facility]CHE[facility] GTZOH7683-05-00 15:22:0016.2[facility]annCHEM PANEL 2017-09-01 15:22:000.8[facility]annCHEM PHAAC9257-47-08 15:22:004.0[facility] PldxdofYVYUANCREW9107-13-15 15:22:001.0[facility] QqryhrcHYTJJNSREN0599-43-57 15:22:008.9[facility] MvdqhnwGMBWGRSWOR1732-82-03 15:22:000.9[facility] CLTRPGCGQV8408-89-21 15:22:001.8[facility] OssgeluJBBHLFRDCL5946-26-51 15:22:001.3 [facility] LulhrsgWPTFCHDEUU8773-98-18 15:22:007.5[facility] HermannHEMATOLOGY 2017-09-01 15:22:0078.2[facility] AqepfxhHRQMPINKCI0236-54-16 15:22:0011.5[facility] XfmhtlzKXZBMTBEBH8067-16-16 15:22:000.1[facility] CzjuqgeJCYDIRXQXP4330-81-74 15:22:000.2[facility] VtcdsjsYDPRIFNCLZ6844-83-79 15:22:0094.6[facility] RVQCEMTZAZ8521-34-48 15:22:00 Test Item Value Reference Range Interpretation Comments MCH (test code = MCH) 32.5 pg 27.0-31.0 [facility] CdxadgxINDSHZSHJW5195-92-96 15:22:0015.1[facility] HermannHEMATOLOGY 2017-09-01 15:22:0043.9[facility] SxcnntbIIRFLFMCMI0402-89-81 15:22:0014.4[facility] YefzmpaEDZBMWACZO6673-88-74 15:22:0034.4[facility] ZtmwvrxLYVDIRDZRJ3528-88-57 15:22:86824Ssrsczqi VbrwaelHHUNBXPKRK9107-32-76 15:22:007.3[facility] NBKTIZXTEO7586-30-27 15:22:004.64[facility] XeobuaeLRVMNMQAAW8667-20-57 15:22:00 11.4[facility] HermannTUMOR UBZSMZV5361-90-28 15:22:002.9[facility] HermannCHEM JFRRG4560-36-38 15:22:0037[facility] HermannCHEM BXNXM9856-02-42 15:22:001.54 [facility]annCHEM BVNAN6519-40-38 15:22:0032[facility]
[2022-08-26 20:20] LABS: Absolute Lymphocytes (CBC) 0.5 K/uL (0.7-4.9); Lymphocytes % 4.3 % (15.3-44.8); MCV 90.6 fL (80-100); RBC Red Blood Cell Count 2.99 M/uL (3.86-4.86)
[2022-08-26 20:24] LABS: Protime INR 0.95
[2022-08-26 20:46] LABS: Albumin 2.7 g/dL (3.4-5.0); Bilirubin Direct 0.1 mg/dL (0-0.2); Bilirubin Total 0.3 mg/dL (0.2-1.0); Protein, Total 6.7 g/dL (6.4-8.2)
[2022-08-26 20:48] LABS: Troponin High Sensitivity 276.9 pg/mL (<58.9)
[2022-08-26 21:01] LABS: Magnesium 2.3 mg/dL (1.8-2.4); Potassium 4.1 mmol/L (3.5-5.1)
--- NOTE | 2022-08-26 21:01 | RAD REPORT ---
EXAM DESCRIPTION: CT - Head Brain Wo Cont - 08/26/2022 8:39 pm CLINICAL HISTORY: ams COMPARISON: No comparisons TECHNIQUE: Axial 5 mm thick images of the head were obtained without IV contrast. All CT scans are performed using dose optimization technique as appropriate and may include automated exposure control or mA/KV adjustment according to patient size. FINDINGS: No intracranial hemorrhage, mass, edema or shift of mid-line structures. No acute infarcti on changes seen. No cortical edema or sulcal effacement. Mild atrophy changes are present primarily b ifrontal in location. Ventricles are in proportion to volume loss. Scattered mild chronic ischemic ch suresh seen in the cerebral white matter. Arterial calcifications are seen. Mastoid air cells and visualized portions of the paranasal sinuses are clear. No acute bony findings. IMPRESSION: Negative non-contrast CT head examination for acute intracranial finding.
[2022-08-26] MEDS ORDERED: NA CHLORIDE 0.9% 500 ML ONE (22:42)
[2022-08-26 23:16] LABS: Urine Bacteria <20 /HPF (<20); Urine Mucus 2+ /HPF (None Seen); Urine RBC >50 /HPF (None Seen); Urine WBC Clump Many /HPF (None Seen)
[2022-08-26 23:26] LABS: SARS-CoV-2 Antigen Rapid Res Negative (Negative)
--- NOTE | 2022-08-26 23:42 | EDPHYS ---
Physician Documentation [facility] Name: Stanley Peña Age: 66 yrs Sex: Female : 1955 Arrival Date: 08/26/2022 Time: 19:01 Bed 23 Private MD: ED Physician Олег Garcias HPI: 08/26 19:36 This 66 yrs old Female presents to ER via Wheelchair with complaints of possible uti, jmm dehydration. 19:36 The patient presents with confusion. Onset: The symptoms/episode began/occurred today. jmm Possible causes: sepsis. This is a 66 year old female with a history of chronic kidney disease that presents to the ED with complaints of altered mental status, increased confusion. states patient had a similar episode with a previous uti. . Historical: - Allergies: 19:31 No Known Allergies; ll3 - PMHx: 19:31 Kidney disease; ll3 - PSHx: 19:31 Pacemaker; ll3 - Immunization history:: Client reports receiving the 2nd dose of the Covid vaccine. - Social history:: Smoking status: . ROS: 19:36 Constitutional: Positive for malaise. jmm 19:36 Neuro: Positive for altered mental status. 19:36 Unable to obtain ROS due to altered mental status. Exam: 19:36 Head/Face: atraumatic. Eyes: EOMI, no conjunctival erythema appreciated ENT: Moist jmm Mucus Membranes Neck: Trachea midline, Supple Chest/axilla: Normal chest wall appearance and motion. Cardiovascular: Regular rate and rhythm. No edema appreciated Respiratory: Normal respirations, no respiratory distress appreciated Abdomen/GI: Non distended Back: Normal ROM Skin: General appearance color normal 19:36 Constitutional: The patient appears alert, awake. 19:36 Musculoskeletal/extremity: ROM: intact in all extremities. 19:36 Skin: Appearance: Color: normal in color. 19:36 Neuro: Motor: is normal. 19:36 Psych: Behavior/mood is pleasant, cooperative. Vital Signs: 19:26 BP 97 / 69; Pulse 81; Resp 19; Temp 98.6(O); Pulse Ox 97% on R/A; Weight 63.5 kg; ll3 Height 5 ft. 6 in. (167.64 cm); Pain 0/10; 20:00 BP 98 / 66; Pulse 78; Resp 18; Pulse Ox 96% on R/A; [facility] 08/27 01:00 BP 103 / 63; Pulse 77; Resp 14; Pulse Ox 94% on R/A; [facility] 08/26 19:26 Body Mass Index 22.60 (63.50 kg, 167.64 cm) ll3 [facility]: 08/26 19:35 Patient medically screened. [facility] 23:40 Data reviewed: vital signs, nurses notes. Counseling: I had a detailed discussion with [facility] the patient and/or guardian regarding: the historical points, exam findings, and any diagnostic results supporting the discharge/admit diagnosis, lab results, radiology results, the need for further work-up and treatment in the hospital. ED course: I discussed the patient with Luana Dior whom accepted the patient to Dr. Harrell's service. . 08/26 19:35 Order name: Basic Metabolic Panel; Complete Time: 21:05 [facility] 08/26 19:35 Order name: CBC with Diff; Complete Time: 20:22 [facility] 08/26 19:35 Order name: LFT's; Complete Time: 21:05 [facility] 08/26 19:35 Order name: Magnesium; Complete Time: 21:05 [facility] 08/26 19:35 Order name: NT PRO-BNP; Complete Time: 21:05 [facility] 08/26 19:35 Order name: PT-INR; Complete Time: 20:25 [facility] 08/26 19:35 Order name: Troponin HS; Complete Time: 21:05 [facility] 08/26 19:35 Order name: Lactate; Complete Time: 20:58 [facility] 08/26 19:36 Order name: Urine Culture [facility] 08/26 19:36 Order name: Blood Culture Adult (2) [facility] 08/26 20:59 Order name: Type And Screen; Complete Time: 23:31 [facility] 08/26 21:05 Order name: SARS RAPID; Complete Time: 23:31 [facility] 08/26 22:07 Order name: Urine Microscopic Only; Complete Time: 23:21 [facility] 08/26 23:59 Order name: ABO/RH no charge; Complete Time: 00:04 [facility] 08/26 19:35 Order name: XRAY Chest (1 view) [facility] 08/26 19:35 Order name: EKG; Complete Time: 19:36 [facility] 08/26 19:35 Order name: Cardiac monitoring; Complete Time: 20:15 [facility] 08/26 19:35 Order name: EKG - Nurse/Tech; Complete Time: 20:15 [facility] 08/26 19:36 Order name: CT Head Brain wo Cont; Complete Time: 21:03 [facility] 08/27 04:39 Order name: CBC with Automated Diff; Complete Time: 04:54 [facility] 08/27 05:10 Order name: Creatine Phosphokinase; Complete Time: 15:22 [facility] 08/27 05:10 Order name: CKMB Creatine Kinase MB; Complete Time: 15:22 [facility] 08/27 05:10 Order name: Troponin High Sensitivity; Complete Time: 15:22 [facility] 08/27 05:19 Order name: Basic Metabolic Panel; Complete Time: 15:22 [facility] 08/27 05:19 Order name: Phosphorus; Complete Time: 15:22 [facility] 08/27 05:19 Order name: Lipid Profile; Complete Time: 15:22 [facility] 08/27 05:19 Order name: Magnesium; Complete Time: 15:22 [facility] 08/27 05:19 Order name: Thyroid Stimulating Hormone; Complete Time: 15:22 [facility] 08/26 19:35 Order name: IV Saline Lock; Complete Time: 20:15 [facility] 08/26 19:35 Order name: Labs collected and sent; Complete Time: 20:15 [facility] 08/26 19:35 Order name: O2 Per Protocol; Complete Time: 20:15 [facility] 08/26 19:35 Order name: O2 Sat Monitoring; Complete Time: 20:15 [facility] 08/26 19:36 Order name: Urine Dipstick-Ancillary (obtain specimen); Complete Time: 00:53 [facility] Administered Medications: 23:11 Drug: NS 0.9% 500 ml Route: IV; Rate: bolus; Site: right forearm; jb4 08/27 00:52 Drug: Rocephin (cefTRIAXone) 1 grams Route: IV; Rate: calculated rate; Site: right jb4 forearm; Disposition: 08/28 08:20 Co-signature as Attending Physician, Олег Garcias MD. rn Disposition Summary: 08/26/22 23:42 Hospitalization Ordered Hospitalization Status: Observation [facility] Provider: Dayne Harrell Condition: Stable [facility] Problem: an acute exacerbation [facility] Symptoms: are unchanged [facility] Bed/Room Type: Standard [facility] Location: Telemetry/MedSurg (observation)(08/27/22 12:23) dw Room Assignment: 222(08/27/22 12:23) dw Diagnosis - Dehydration [facility] - Acute Kidney Injury brissa - UTI brissa Forms: - Medication Reconciliation Form [facility] - SBAR form nelly Signatures: Dispatcher [employer] Denisse Hameed RN RN Abelino Lopez PA PA jmm Nieto, Roman, MD MD rn Garcia, Cindy, RN RN cg Bryson, James, RN RN jb4 Loubet, Lynsea RN RN ll3 Amber Dior PANapoleon PAOliverC sb4 Corrections: (The following items were deleted from the chart) 08/27 00:11 08/26 23:42 Telemetry/MedSurg (Inpatient) [facility] 08/27 00:11 08/26 23:42 [facility] 08/27 12:23 00:11 [facility] ER HOLD dw 12:23 00:11 ERHOLD- cg dw
--- NOTE | 2022-08-26 23:42 | ER ---
Nurse's Notes [facility] Name: Stanley Peña Age: 66 yrs Sex: Female : 1955 Arrival Date: 08/26/2022 Time: 19:01 Bed 23 Private MD: Diagnosis: Dehydration;Acute Kidney Injury;UTI Presentation: 08/26 19:26 Chief complaint: Patient states: "She's acting like she did the last time she had a ll3 UTI, she just went to the urologist on Wednesday and had her Daniel replaced", states noticed blood in urine, states pt has been having AMS since this morning. Coronavirus screen: Vaccine status:. Coronavirus screen: Vaccine status: Patient reports receiving the 2nd dose of the covid vaccine. At this time, the client does not indicate any symptoms associated with coronavirus-19. Ebola Screen: No symptoms or risks identified at this time. Risk Assessment: Do you want to hurt yourself or someone else? Patient reports no desire to harm self or others. Onset of symptoms was August 26, 2022. 19:26 Method Of Arrival: Wheelchair ll3 19:26 Acuity: CLEVE 3 ll3 20:18 Initial Sepsis Screen: Does the patient meet any 2 criteria? Yes Does the patient have aa9 a suspected source of infection? Yes: Catheter related infection (Daniel/dialysis/PICC/central line). Triage Assessment: 19:31 General: Appears in no apparent distress. comfortable, Behavior is calm, cooperative. ll3 Pain: Denies pain. Neuro: Level of Consciousness is awake, alert, obeys commands, Oriented to person, place, time, situation, Caregiver reports AMS since this morning. Respiratory: Respiratory effort is even, unlabored, Respiratory pattern is regular, symmetrical. : Parent/caregiver report the patient having Blood in urine. : Daniel in place to gravity drainage clamped. Derm: Skin is pink, warm \\T\\ dry. Historical: - Allergies: 19:31 No Known Allergies; ll3 - PMHx: 19:31 Kidney disease; ll3 - PSHx: 19:31 Pacemaker; ll3 - Immunization history:: Client reports receiving the 2nd dose of the Covid vaccine. - Social history:: Smoking status: . Screenin:18 Abuse screen: Denies threats or abuse. Denies injuries from another. Nutritional aa9 screening: No deficits noted. Tuberculosis screening: No symptoms or risk factors identified. Fall Risk None identified. Assessment: 20:16 General: Appears ill, Behavior is flat. Pain:. Neuro: Level of Consciousness is aa9 lethargic, Oriented to person. Cardiovascular:. Respiratory: Airway is patent Respiratory effort is labored. GI: No signs and/or symptoms were reported involving the gastrointestinal system. : Daniel in place to gravity drainage. EENT: No signs and/or symptoms were reported regarding the EENT system. Derm: Skin is intact, with poor turgor Skin is pale, Skin temperature is cool. Musculoskeletal: No signs and/or symptoms reported regarding the musculoskeletal system. 20:32 Reassessment: paged lab for 2nd set of blood cultures. aa9 20:47 Reassessment: trop 276.9, Provider notified. vc1 21:30 Reassessment: Patient appears in no apparent distress at this time. Patient and/or jb4 family updated on plan of care and expected duration. Pain level reassessed. Pt remains A\\T\\Ox1, respirations are even and unlabored with no s/s of pain or distress noted. 22:30 Reassessment: Patient appears in no apparent distress at this time. No changes from jb4 previously documented assessment. Patient and/or family updated on plan of care and expected duration. Pain level reassessed. 23:30 Reassessment: Patient appears in no apparent distress at this time. No changes from jb4 previously documented assessment. Patient and/or family updated on plan of care and expected duration. Pain level reassessed. 08/27 00:30 Reassessment: Patient appears in no apparent distress at this time. No changes from jb4 previously documented assessment. Patient and/or family updated on plan of care and expected duration. Pain level reassessed. 01:37 Reassessment: Patient appears in no apparent distress at this time. No changes from jb4 previously documented assessment. Patient and/or family updated on plan of care and expected duration. Pain level reassessed. Vital Signs: 08/26 19:26 BP 97 / 69; Pulse 81; Resp 19; Temp 98.6(O); Pulse Ox 97% on R/A; Weight 63.5 kg; ll3 Height 5 ft. 6 in. (167.64 cm); Pain 0/10; 20:00 BP 98 / 66; Pulse 78; Resp 18; Pulse Ox 96% on R/A; jb4 08/27 01:00 BP 103 / 63; Pulse 77; Resp 14; Pulse Ox 94% on R/A; jb4 08/26 19:26 Body Mass Index 22.60 (63.50 kg, 167.64 cm) 3 ED Course: 08/26 19:01 Patient arrived in ED. am2 19:03 Abelino Block PA is PHCP. [facility] 19:03 Олег Garcias MD is Attending Physician. [facility] 19:31 Triage completed. 3 19:31 Arm band placed on. ll3 20:09 Inserted saline lock: 22 gauge in right antecubital area, using aseptic technique. aa9 Blood collected. 20:15 Lay Calvillo, RN is Primary Nurse. aa9 20:15 Lactate Sent. aa9 20:15 Blood Culture Adult (2) Sent. aa9 20:15 Basic Metabolic Panel Sent. aa9 20:15 CBC with Diff Sent. aa9 20:15 LFT's Sent. aa9 20:15 Magnesium Sent. aa9 20:15 NT PRO-BNP Sent. aa9 20:15 PT-INR Sent. aa9 20:15 Troponin HS Sent. aa9 20:19 Patient has correct armband on for positive identification. Bed in low position. Call aa9 light in reach. Side rails up X2. Adult w/ patient. Warm blanket given. 20:32 XRAY Chest (1 view) In Process Unspecified. EDMS 20:41 CT Head Brain wo Cont In Process Unspecified. EDMS 23:41 Dayne Harrell is Hospitalizing Provider. [facility] Administered Medications: 23:11 Drug: NS 0.9% 500 ml Route: IV; Rate: bolus; Site: right forearm; [facility] 08/27 00:52 Drug: Rocephin (cefTRIAXone) 1 grams Route: IV; Rate: calculated rate; Site: right [facility] forearm; Outcome: 08/26 23:42 Decision to Hospitalize by Provider. [facility] 08/27 14:38 Patient left the ED. [facility] Signatures: Dispatcher [employer] EDMS Abelino Block PA PA [facility] Luis Miguel Mishra, RN RN [facility] Diana Morales 2 Genevieve Dyson RN RN 5 Felix Coffey, RN RN ll3 Ysabel Moreland, RN RN vc1 Lay Calvillo, RN RN aa9
[2022-08-27] MEDS ORDERED: CEFTRIAXONE 1000 MG/VIAL ONE (00:39)
--- NOTE | 2022-08-27 00:54 | P.HP ---
Certification for Inpatient Patient admitted to: Inpatient With expected LOS: >2 Midnights Patient will require the following post-hospital care: None Practitioner: I am a practitioner with admitting privileges, knowledge of patient current condition, hospital course, and medical plan of care. Services: Services provided to patient in accordance with Admission requirements found in Title 42 Section 412.3 of the Code of Federal Regulations Patient History Date of Service: 08/27/22 Reason for admission: JARAD, UTI, Elevated Troponin History of Present Illness: Patient is 66 year old female with past medical history significant for CKD4, hypertension, bradycardia s/p ICD, noninsulin dependent type 2 diabetes, chronic systolic CHF, neurogenic bladder with chronic indwelling haley catheter who presented to the emergency department with her who reports confusion. He states she behaves like this when she has a UTI. Haley catheter last changed 5 days ago. Her labs are significant for WBC 11.8, hgb 9, hct 27, CO2 12, BUN 82, Cr 4.76, trop HS 276.9, BNP 79543, urine positive for UTI. Head CT negative. Chest xray showed "left hemidiaphragm obscured which can be seen with left pleural effusion, as well as left lower consolidation or atelectasis." She was given rocephin and 1/2L fluid in ED. Patient is admitted for further management. Allergies No Known Allergies Allergy (Unverified 08/27/22 02:50) - Past Medical/Surgical History Diabetic: Yes -: Chronic Kidney Disease 4 -: Hypertension -: Type 2 Diabetes, Non-Insulin Dependent -: Atrial Fibrillation -: Systolic CHF -: Neurogenic bladder with indwelling haley catheter -: Bradycardia -: Hypothyroidism -: Dysphagia -: ICD/Pacemaker Psychosocial/ Personal History: Patient is . - Family History Family History: Reviewed- Non-Contributory - Social History Smoking Status: Former smoker Alcohol use: No CD- Drugs: No Caffeine use: Yes Place of Residence: Home Review of Systems Unremarkable Physical Examination - Physical Exam General: In no apparent distress, Oriented x2 HEENT: Atraumatic, PERRLA, EOMI, Sclerae nonicteric Neck: Supple, 2+ carotid pulse no bruit, No LAD, Without JVD or thyroid abnormality Respiratory: Clear to auscultation bilaterally, Normal air movement Cardiovascular: Regular rate/rhythm, Normal S1 S2 Gastrointestinal: Normal bowel sounds, No tenderness Musculoskeletal: No tenderness Integumentary: No rashes Neurological: Normal speech, Sensation intact Urinary: Haley catheter - Studies Laboratory Data (last 24 hrs) 08/26/22 20:09: PT 10.4, INR 0.95 08/26/22 20:09: WBC 11.80 H, Hgb 9.0 L, Hct 27.0 L, Plt Count 351 08/26/22 20:09: Sodium 132 L, Potassium 4.1, BUN 82 H, Creatinine 4.76 H, Glucose 80, Magnesium 2.3, Total Bilirubin 0.3, AST 16, ALT 14, Alkaline Phosphatase 85 Assessment and Plan - Problems (Diagnosis) (1) UTI (urinary tract infection) due to urinary indwelling Haley catheter Current Visit: Yes Status: Acute Qualifiers: Indwelling urinary catheter type: indwelling urethral catheter Encounter type: initial encounter Qualified Code(s): T83.511A - Infection and inflammatory reaction due to indwelling urethral catheter, initial encounter; N39.0 - Urinary tract infection, site not specified (2) Elevated troponin Current Visit: Yes Status: Acute (3) JARAD (acute kidney injury) Current Visit: Yes Status: Acute (4) Chronic kidney disease Current Visit: Yes Status: Chronic Qualifiers: Chronic kidney disease stage: stage 4 (severe) Qualified Code(s): N18.4 - Chronic kidney disease, stage 4 (severe) (5) Dehydration Current Visit: Yes Status: Acute (6) Afib Current Visit: Yes Status: Chronic Qualifiers: Atrial fibrillation type: paroxysmal Qualified Code(s): I48.0 - Paroxysmal atrial fibrillation - Plan Patient's brought paperwork from previous hospital stay at [facility] in May listing all medical problems, medications, and lab results. Located in patient's chart. Rocephin for UTI. Follow urine culture. Initial troponin elevated at 277. Trend troponin and serial cardiac enzymes. Aspirin daily. Patient denies chest pain. Monitor on telemetry. Cardiology consult. Echo ordered. Nephrology consult for JARAD on CKD4 with Cr of 4.76. She required CRRT during previous hospitalization. Physical therapy consult. Monitor and replete electrolytes per protocol. Reconcile and continue home medications. Heparin for VTE prophylaxis. Full code Discharge Plan: Home Plan to discharge in: Greater than 2 days - Advance Directives Does patient have a Living Will: No Does patient have a Durable POA for Healthcare: No - Code Status/Comfort Care Code Status Assessed: Yes (Full) Critical Care: No Time Spent Managing Pts Care (In Minutes): 50
[2022-08-27] MEDS ORDERED: ACETAMINOPHEN 500 MG TAB PO PRN (03:23)
[2022-08-27] MEDS ORDERED: NACHLORIDE 0.45% 1,000 ML with NA BICARB 8.4% 150 MEQ IV SCH ×2 (03:23)
[2022-08-27] MEDS ORDERED: ONDANSETRON 4 MG/2 ML VIAL IV PRN (03:23)
[2022-08-27] MEDS ORDERED: ASPIRIN EC 81 MG TAB PO ONE (03:23)
[2022-08-27] MEDS ORDERED: HEPARIN 5000 UNIT/ML 1 ML VIAL ONE ×2 (03:49→09:09)
[2022-08-27 04:28] LABS: Absolute Lymphocytes (CBC) 0.4 K/uL (0.7-4.9); Hematocrit 28.4 % (36.0-45.0); Lymphocytes % 2.7 % (15.3-44.8); MCV 90.5 fL (80-100); MPV 6.3 fL (7.6-11.3); RBC Red Blood Cell Count 3.14 M/uL (3.86-4.86)
[2022-08-27] MEDS ORDERED: NACHLORIDE 0.45% 1,000 ML IV ONE (04:35)
[2022-08-27] MEDS ORDERED: SODIUM BICARB 50 MEQ/50ML VIAL ONE (04:36)
[2022-08-27] MEDS: HEPARIN 5000 UNIT/ML 1 ML VIAL SQ SCH ×3 (04:41→17:01)
[2022-08-27 05:08] LABS: CKMB Creatine Kinase MB 7.2 ng/mL (1.0-3.6)
[2022-08-27 05:10] LABS: Troponin High Sensitivity 243.7 pg/mL (<58.9)
[2022-08-27 05:18] LABS: Magnesium 2.2 mg/dL (1.8-2.4); Thyroid Stimulating Hormone 2.59 uIU/mL (0.360-3.740)
[2022-08-27] MEDS ORDERED: CEFTRIAXONE 1,000 MG in NA CHLORIDE 0.9% 50 ML IVPB SCH (09:00)
[2022-08-27] MEDS ORDERED: Meropenem 1,000 MG in NA CHLORIDE 0.9% 100 ML IV SCH (09:00)
[2022-08-27] MEDS ORDERED: Meropenem 1000 MG/VIAL IV ONE (09:09)
[2022-08-27] MEDS ORDERED: NA CHLORIDE 0.9% 100 ML IV ONE (09:10)
--- NOTE | 2022-08-27 10:40 | RAD REPORT ---
EXAM DESCRIPTION: RAD - Chest Single View - 08/27/2022 2:09 am CLINICAL HISTORY: The patient is 66 years old and is Female; ams TECHNIQUE: Frontal view of the chest. COMPARISON: No relevant prior studies available. FINDINGS: Lungs: See below. Pleural space: Left hemidiaphragm is obscured which can be seen with left pleural effusion, as well as left lower lobe consolidation or atelectasis. No pneumothorax. Heart: Unremarkable. Mediastinum: Unremarkable. Bones/joints: Unremarkable. Tubes, lines and devices: Left-sided pacemaker. IMPRESSION: Left hemidiaphragm is obscured which can be seen with left pleural effusion, as well as left lower lobe consolidation or atelectasis. Electronically signed by: Kaz Kumar MD 08/27/2022 2:23 AM CDT Due to temporary technical issues with the PACS/Fluency reporting system, reports are being signed by the in house radiologists without review as a courtesy to insure prompt reporting. The interpreting radiologist is fully responsible for the content of the report. TERESA
[2022-08-27] MEDS: WATER FOR INJ,STERILE 1,000 ML with NA BICARB 8.4% 150 MEQ IV SCH ×2 (13:00)
[2022-08-27] MEDS: MIDODRINE HCL 5 MG TABLET PO SCH ×2 (13:18→21:00)
--- NOTE | 2022-08-27 14:17 | EKG ---
Test Date: 2022-08-26 Test Time: 19:55:16 Director Of Business Services: AMIE MEASUREMENT RESULTS: Intervals: Rate: 78 WA: 174 QRSD: 162 QT: 498 QTc: 567 [place]: P: 70 WA: 174 QRS: 148 T: 27 INTERPRETIVE STATEMENTS: Electronic ventricular pacemaker No previous ECG available for comparison Electronically Signed On 08-27-22 14:16:13 CDT by Karlo Lawler
--- NOTE | 2022-08-27 15:39 | CON ---
Date of Consultation: 08/27/2022 Reason For Consultation: Acidosis, elevated BUN and creatinine. History Of Present Illness: All the information has been obtained from the record as the patient has altered mental status and gotten the information from the record and from the by bedside. T his is unfortunate 66-year-old female with significant past medical history of hypertension, diabetes complicated with neuropathy and nephropathy, CAD complicated with congestive heart failure and AFib, hypothyroidism, chronic kidney disease stage 4, recently admitted to the hospital with cardiogenic s hock, required to be started on dialysis, started back in April and CRRT, then gradually weaned from d ialysis. Follows up with Dr. Randal Nice at [place] at phone #[phone]. The patient after CRRT switched to conventional hemodialysis then gradually was weaned and since end of April did not receive any dialysis. The patient came to the hospital complaining from weak, altered mental status, found to have elevation in BUN and creatinine and severe acidosis. For that reason, the patient was admitt ed to the hospital along we have been consulted. The patient denied any recent change in her medicat ion. The patient found to be also with congestive heart failure. Past Medical History: Includes; 1.Chronic kidney disease, stage 4, status post dialysis and CRRT back in April. 2.Hypertension. 3.Hyperlipidemia. 4.CAD complicated with congestive heart failure, status post PTCA and ICD. 5.Diabetes complicated with neuropathy and nephropathy. 6.AFib. 7.Hypothyroidism. Family History: Positive for hypertension. Allergies: NO KNOWN DRUGS ALLERGY. Past Surgical History: Includes ICD and PTCA. Social History: Ex-smoker. Denied alcohol. Denied drugs abuse. Review of Systems: None obtainable. Physical Examination: Vital Signs: When I saw the patient; blood pressure 91/63, pulse of 80, afebrile. Chest: Crackles bilateral base. Heart: S1, S2. Systolic murmur. Abdomen: Soft, nontender. Extremity: Trace edema. Neuro: Altered mental status, obtunded. No focality. Could not exam the tremor as the patient not participating. Laboratory Data: Chest x-ray, cardiomegaly. WBC 15.5, H and H 9.4/28.4. Sodium 134, potassium 4, b icarb 11, BUN 85, creatinine 4.8, calcium 8.8, phosphorus 8, magnesium 2.2. Troponin 276. BNP 87,00 0. Albumin 2.7. Corrected calcium is 10. TSH 2.5. Urinalysis positive for infection. Current Medications: The patient on include; 1.Aspirin. 2.Meropenem 1000 b.i.d. 3.Tylenol. 4.Sodium bicarb 3 amps in half normal. Assessment And Plan: 1.Acute kidney injury on advanced chronic kidney disease complicated with uremia and acidosis. No h yperkalemia. I had long discussion with the patient's by bedside that the patient will need to initiate back on renal replacement therapy, on the agreement. We will consult Surgery for tunneled hemodialysis catheter given the marginal low blood pressure. The patient is going to be di alyzed on low flow on a daily dialysis and we will follow up. We will try to do sled as CRRT not hollie ilable. 2.Acidosis secondary to renal failure, non-anion gap metabolic acidosis with anion gap metabolic aci dosis secondary to renal failure secondary to lactic secondary to sepsis. I am going to start the pa tient on bicarb drip to avoid any hypertonic. We will change it to 3 amps in sterile water and we wi ll run it at 100. We will discontinue it upon starting on dialysis. 3.Hypertension, currently hypotension. Hold all blood pressure medications. 4.Congestive heart failure with exacerbation. We will try to establish better volume control with d ialysis. 5.Coronary artery disease with unstable angina, questionable non-ST elevation myocardial infarction as by primary. 6.Hyponatremia secondary to renal failure. Will be corrected with dialysis. 7.Elevation in the phosphorus mostly secondary to hyperphosphatemia. I am going to go ahead and sen d for PTH. We will start the patient on Renvela when the patient is more awake. 8.Urinary tract infection. We will adjust meropenem to once every 24 hours. 9.Pneumonia, continued. We will adjust meropenem. We will follow up with the primary. 10.Shock, multifactorial, secondary to sepsis/cardiac. We will advance antibiotic and we will follo w up. Time spent examining the patient [id number], reviewing data, lab and radiology, discussing the case with , discussing the case with team lead including nursing in the ER and dialysis nurse [facility] hospitalist more than 65 minutes. STACEY/MARLEN Voice ID: [id number] Report ID: [id number]
--- NOTE | 2022-08-27 15:56 | P.PN ---
Subjective Date of Service: 08/27/22 Chief Complaint: JARAD, UTI, Elevated Troponin Patient is drowsy, responds appropriately to questions. Physical Examination - Vital Signs Temperature: 98.1 F Blood Pressure: 91/63 Pulse: 80 Respirations: 16 Pulse Ox (%): 97 - Studies Laboratory Data (last 24 hrs) 08/26/22 20:09: PT 10.4, INR 0.95 08/26/22 20:09: WBC 11.80 H, Hgb 9.0 L, Hct 27.0 L, Plt Count 351 08/26/22 20:09: Sodium 132 L, Potassium 4.1, BUN 82 H, Creatinine 4.76 H, Glucose 80, Magnesium 2.3, Total Bilirubin 0.3, AST 16, ALT 14, Alkaline Phosphatase 85 Microbiology Data (last 24 hrs): 08/26/22 21:03 Blood - Blood Anaerobic Blood Culture - Final Assessment And Plan - Current Problems (Diagnosis) (1) Metabolic encephalopathy Current Visit: Yes Status: Acute (2) Metabolic acidosis Current Visit: Yes Status: Acute (3) UTI (urinary tract infection) due to urinary indwelling Daniel catheter Current Visit: Yes Status: Acute Qualifiers: Indwelling urinary catheter type: indwelling urethral catheter Encounter type: initial encounter Qualified Code(s): T83.511A - Infection and inflammatory reaction due to indwelling urethral catheter, initial encounter; N39.0 - Urinary tract infection, site not specified (4) Acute worsening of stage 4 chronic kidney disease Current Visit: Yes Status: Acute - Plan Physical Exam General: In no apparent distress, drowsy. HEENT: PERRLA, Sclerae nonicteric Neck: Supple, no elevated JVD Respiratory: Clear to auscultation bilaterally, Normal air movement Cardiovascular: Regular rate/rhythm, Normal S1 S2 Gastrointestinal: Normal bowel sounds, No tenderness Integumentary: No rashes Neurological: Normal speech, Sensation intact Urinary: Daniel catheter. Plan: I suspect patient altered mental status is secondary to uremic encephalopathy. She also has UTI. Nephrology consulted. Dr. Corona is planning hemodialysis. General surgery consult for dialysis access. Check hepatitis profile. IV antibiotics for UTI Follow urine and blood cultures.
[2022-08-27 19:07] LABS: Arterial Blood Carboxyhemoglob 1.2 % (0-1.5); Blood Gas Oxyhemoglobin 87.9 % (94-97); Blood O2 Saturation 90.5 % (92-98.5)
[2022-08-28] MEDS: HEPARIN 5000 UNIT/ML 1 ML VIAL SQ SCH ×3 (00:29→17:59)
[2022-08-28] MEDS: WATER FOR INJ,STERILE 1,000 ML with NA BICARB 8.4% 150 MEQ IV SCH ×8 (00:30→17:58)
[2022-08-28] MEDS ORDERED: ALBUMIN HUMAN 25% 100 ML IV ONE (02:38)
--- NOTE | 2022-08-28 06:58 | ECHO ---
HEIGHT: 5 ft 6 in WEIGHT: 140 lb 0 oz DATE OF STUDY: 08/27/[address]: Amber Dior 2-DIMENSIONAL: YES M.MODE: YES DOPPLER: YES COLOR FLOW: YES TDS: PORTABLE: YES DEFINITY: BUBBLE STUDY: DIAGNOSIS: ELEVATED TROPONIN CARDIAC HISTORY: CATHERIZATION: NO SURGERY: NO PROSTHETIC VALVE: NO PACEMAKER: NO MEASUREMENTS (cm) DIASTOLIC (NORMALS) SYSTOLIC (NORMALS) IVSd 0.9 (0.6-1.2) LA Diam 5.1 (1.9-4.0) LVEF 55-60% LVIDd 4.3 (3.5-5.7) LVIDs 2.6 (2.0-3.5) %FS 41% LVPWd 0.9 (0.6-1.2) Ao Diam 2.6 (2.0-3.7) 2 DIMENSIONAL ASSESSMENT: RIGHT ATRIUM: NORMAL LEFT ATRIUM: ENLARGED RIGHT VENTRICLE: PACEMAKER IS SEEN LEFT VENTRICLE: NORMAL TRICUSPID VALVE: MILD TRICUSPID REGURGITATION MITRAL VALVE: MILD MITRAL REGURGITATION PULMONIC VALVE: NORMAL AORTIC VALVE: CALCIFIED, NO AORTIC STENOSIS PERICARDIAL EFFUSION: NONE AORTIC ROOT: NORMAL LEFT VENTRICULAR WALL MOTION: NORMAL DOPPLER/COLOR FLOW: SEE BELOW COMMENTS: NORMAL LEFT VENTRICULAR EJECTION FRACTION 55-60%. NORMAL WALL MOTION. LEFT ATRIAL ENLARGEMENT (SEVERE). MILD TRICUSPID REGURGITATION/ MITRAL REGURGITATION. AORTIC VALVE SCLEROSIS, NO AORTIC STENOSIS. TECHNOLOGIST: DL TEJADA
[2022-08-28] MEDS: Meropenem 1,000 MG in NA CHLORIDE 0.9% 100 ML IV SCH (08:47)
[2022-08-28] MEDS: MIDODRINE HCL 5 MG TABLET PO SCH ×5 (08:48→21:00)
[2022-08-28] MEDS ORDERED: NA CHLORIDE 0.9% 1,000 ML IV SCH (09:00)
--- NOTE | 2022-08-28 12:55 | P.PN ---
Subjective Date of Service: 08/28/22 Chief Complaint: JARAD, UTI, Elevated Troponin Patient remained obtunded. She has poor urine output. Blood pressure has been soft, intermittently hypotensive. No recorded fever. Physical Examination - Vital Signs Temperature: 97.3 F Blood Pressure: 76/46 Pulse: 70 Respirations: 16 Pulse Ox (%): 90 - Studies Microbiology Data (last 24 hrs): 08/26/22 21:03 Blood - Blood Anaerobic Blood Culture - Final Assessment And Plan - Current Problems (Diagnosis) (1) Metabolic encephalopathy Current Visit: Yes Status: Acute (2) Metabolic acidosis Current Visit: Yes Status: Acute (3) UTI (urinary tract infection) due to urinary indwelling Daniel catheter Current Visit: Yes Status: Acute Qualifiers: Indwelling urinary catheter type: indwelling urethral catheter Encounter type: initial encounter Qualified Code(s): T83.511A - Infection and inflammatory reaction due to indwelling urethral catheter, initial encounter; N39.0 - Urinary tract infection, site not specified (4) Acute worsening of stage 4 chronic kidney disease Current Visit: Yes Status: Acute - Plan Physical Exam General: Obtunded. HEENT: PERRLA, Sclerae nonicteric Neck: Supple, no elevated JVD Respiratory: Clear to auscultation bilaterally, Normal air movement Cardiovascular: Regular rate/rhythm, Normal S1 S2 Gastrointestinal: Normal bowel sounds, No tenderness Integumentary: No rashes Neurological: Obtunded, she moves all extremities spontaneously. Urinary: Daniel catheter. Plan: I suspect patient altered mental status is secondary to uremic encephalopathy. She also has UTI. Urine culture is growing gram-negative rods. Nephrology consulted. Dr. Corona is planning hemodialysis. General surgery consult for dialysis access. Patient given normal saline bolus for intermittent hypotension. Continue IV fluid. Nephrology recommendation Hepatitis profile obtain Continue IV antibiotics for UTI. Blood cultures: No growth Follow urine culture. Neuro checks.
--- NOTE | 2022-08-28 13:10 | P.PN ---
Subjective Date of Service: 08/28/22 Chief Complaint: JARAD, UTI, Elevated Troponin Subjective: Other (TDC placement cancelled d/t hypotension. Pt transferred to ICU today.) Physical Examination - Vital Signs Temperature: 97.3 F Blood Pressure: 76/46 Pulse: 70 Respirations: 16 Pulse Ox (%): 90 - Physical Exam General: Other (Appears as her stated age.) HEENT: Atraumatic, Normocephalic Neck: Supple, JVD not distended Respiratory: Other (symmetric chest expansion) Gastrointestinal: Soft and benign, No guarding Musculoskeletal: No clubbing, Swelling Integumentary: No warmth Neurological: Other (No new focal deficits) Urinary: Other (No bladder distention) External genitalia: Deferred Rectal: Deferred - Studies Microbiology Data (last 24 hrs): 08/26/22 21:03 Blood - Blood Anaerobic Blood Culture - Final Assessment And Plan - Plan # JARAD 2/2 ATN/hypotension on advanced CKD TDC placement cancelled d/t hypotension IJ peggy cath placed on 08/28 PUF attempted today but unable d/t hypotension Goals of care discussion with family tonight. Pt to remain in full code. For SLEDD tomorrow AM, 2 hrs, 3L off. # Shock likely cardiogenic, suspect R-sided HF / pulmo Htn Has UTI +/- PNA but unlikely to be in septic shock w/ BNP severely elevated TTE on 08/27 showed normal LVEF 55-60%, severe LAE Chest CT on 08/28 showed dilated main pulmo artery indicative of sig pulmo Htn ongoing; also +bilat pulmo opacities Unable to r/o pulmo embolism at this time. Hold off on CTPE. Serum cortisol wnl. Adrenal insufficiency unlikely. On 2 IV pressors, titrate to MAP > 65 Insert arterial line Trialysis catheter not available. Insert picc. # Anemia pRBC transfusion tonight # Combined respi + metabolic acidosis/AGMA BiPAP, IV bicarb HD as above # [id number] HD as above # Pneumonia, UTI Abx, f/u cultures
[2022-08-28] MEDS ORDERED: Ringers Lactate 0 ML IV ONE (13:14)
[2022-08-28] MEDS ORDERED: NOREPINEPHRINE BITARTRATE/D5W 4 MG/250 ML BAG IV SCH (14:00)
--- NOTE | 2022-08-28 15:02 | RAD REPORT ---
EXAM DESCRIPTION: CT - Thorax Wo Con - 08/28/2022 2:28 pm CLINICAL HISTORY: Shortness of breath/hypotension COMPARISON: August 26, 2022 TECHNIQUE: Computed axial tomography of the chest was obtained. Contrast was not requested. All CT scans are performed using dose optimization technique as appropriate and may include automated exposure control or mA/KV adjustment according to patient size. FINDINGS: The evaluation of mediastinum, esme and vessels is limited secondary to lack of IV contras t administration. Mild to moderate right lower lobe alveolar opacities. Mild lingula and left lower lobe alveolar opacities. Mild right lower lobe atelectasis. No mediastinal or hilar lymphadenopathy is seen. Small to moderate left and small right pleural effusions. IMPRESSION: Bilateral pulmonary opacities probably pneumonia
[2022-08-28] MEDS ORDERED: HEPARIN 500 UNIT/5 ML SYR IV ONE ×2 (15:31→16:56)
[2022-08-28] MEDS ORDERED: 0.9 % SODIUM CHLORIDE 40 ML ONE (15:37)
--- NOTE | 2022-08-28 17:30 | P.BOP ---
Preoperative diagnosis: ESRD Postoperative diagnosis: Same Primary procedure: 1. Insertion of right neck hemodialysis catbeter Secondary procedure: 2. Rightneck ultrasound Estimated blood loss: <10c Specimen: none Anesthesia: General Complications: None Transferred to: Recovery Room Condition: Good
--- NOTE | 2022-08-28 17:38 | RAD REPORT ---
EXAM DESCRIPTION: RADChest Single View08/28/2022 5:23 pm CLINICAL HISTORY: Device placement/central venous catheter placement IMPRESSION: Central venous catheter has been placed into the junction of the distal superior vena ca va and right atrium. No pneumothorax
[2022-08-28] MEDS: NOREPINEPHRINE BITARTRATE IV SCH ×7 (18:33→23:43)
[2022-08-28] MEDS: D5W IV SCH ×7 (18:33→23:43)
[2022-08-28 18:43] LABS: Absolute Lymphocytes (CBC) 0.3 K/uL (0.7-4.9); Hematocrit 21.1 % (36.0-45.0); Lymphocytes % 1.4 % (15.3-44.8); MCV 88.4 fL (80-100); MPV 6.3 fL (7.6-11.3); RBC Red Blood Cell Count 2.38 M/uL (3.86-4.86)
[2022-08-28 19:46] LABS: BUN Blood Urea Nitrogen 86 mg/dL (7-18); Bicarbonate 15 mmol/L (21-32); Ferritin 416.9 ng/mL (8-388); Folic Acid, (Folate) 13.4 ng/mL (3.1-17.5); Glomerular Filtration Rate 9 ml/min (=/>90); Glucose Level 123 mg/dL (74-106); Phosphorus 8.1 mg/dL (2.5-4.9); Potassium 3.6 mmol/L (3.5-5.1); Sodium Level 134 mmol/L (136-145); Transferrin 98 mg/dL (200-360); Uric Acid 7.9 mg/dL (2.6-6.0)
[2022-08-28] MEDS ORDERED: SODIUM BICARB 50 MEQ/50ML VIAL ONE (20:23)
[2022-08-28] MEDS ORDERED: Phenylephrine HCl 10 MG/ML 1 ML VIAL ONE (20:29)
[2022-08-28] MEDS ORDERED: NA CHLORIDE 0.9% 250 ML ONE ×3 (20:30→22:32)
[2022-08-28] MEDS ORDERED: NA CHLORIDE 0.9% 250 ML IV SCH (21:05)
[2022-08-28 21:21] LABS: Platelet Estimate ADEQ
[2022-08-28 21:22] LABS: Anisocytosis 1+; Blood Morphology Comment NOTED (NOT SEEN); Ovalocytes SLIGHT; Poikilocytosis SLIGHT
[2022-08-28] MEDS ORDERED: NOREPINEPHRINE 4 MG/4 ML VIAL ONE (21:32)
[2022-08-28] MEDS ORDERED: D5W 250 ML IV ONE (21:33)
--- NOTE | 2022-08-28 21:41 | CON ---
Date of Consultation: 08/27/2022 Reason For Consultation: Elevated troponin. History Of Present Illness: Ms. Peña is 66, has a history of chronic renal disease with creatinine 4.84, history of pacemaker, came in with acute kidney injury, UTI, anemia, elevated troponin, elevat ed BNP greater than 80,000. No cardiac symptoms reported. Past Medical History: As stated above. Allergies: NONE. Review of Systems: Negative. Social History: Negative. Family History: Noncontributory. Medications: Listed by admitting physician. Physical Examination: General: She is very somnolent and is not able to recollect. She would answer in her sleep. She wo uld wake up and go back to sleep. Vital Signs: Stable, otherwise afebrile. Sinus rhythm. HEENT: Negative. Neck: Supple with no bruit. Chest: Revealed some crackles in the bases. Cardiac: Regular rhythm and rate. Negative S4, gallops. Abdomen: Benign. Extremities: Revealed trace edema. Diagnostic Data: As stated earlier. Impression And Plan: 1.Elevated troponin secondary to demand ischemia from a kidney infection from a urinary tract infect ion and renal failure. 2.Elevated BNP consistent with acute congestive heart failure, probably diastolic. Echocardiogram i s pending. 3.Renal failure. Creatinine 4.84. Nephrology consultation is pending. 4.History of pacemaker placement. Ms. Peña needs to be treated with antibiotics. Rest of the echocardiogram is pending. Nephrology consultation is pending. No need for cardiac intervention at this point. We will continue to follow . We will see what the echo shows. RUBINA/MARLEN Voice ID: [id number] Report ID: [id number]
[2022-08-28] MEDS ORDERED: VANCOMYCIN 1 GM in NA CHLORIDE 0.9% 250 ML IVPB SCH (22:00)
[2022-08-28] MEDS ORDERED: VANCOMYCIN 1 GM/VIAL ONE (22:32)
[2022-08-28] MEDS ORDERED: VANCOMYCIN 500 MG/VIAL ONE (22:32)
[2022-08-28] MEDS ORDERED: VANCOMYCIN 1.25 GM in NA CHLORIDE 0.9% 250 ML IVPB ONE (23:00)
[2022-08-28 23:58] LABS: Arterial Blood Carboxyhemoglob 1.5 % (0-1.5); Blood O2 Saturation 64.9 % (92-98.5)
[2022-08-29] MEDS: D5W IV SCH ×5 (00:43→14:42)
[2022-08-29] MEDS: NOREPINEPHRINE BITARTRATE IV SCH ×4 (00:43→05:50)
[2022-08-29] MEDS: HEPARIN 5000 UNIT/ML 1 ML VIAL SQ SCH ×3 (01:00→17:00)
[2022-08-29 01:27] LABS: UR PROTEIN 368.7 mg/dL (<11.9); Urine Protein/Creatinine Ratio 4.98 ratio (<0.15)
[2022-08-29] MEDS ORDERED: D5W 250 ML IV ONE (01:46)
[2022-08-29] MEDS ORDERED: NOREPINEPHRINE 4 MG/4 ML VIAL ONE (01:46)
[2022-08-29] MEDS ORDERED: NOREPINEPHRINE IV ONE (02:18)
[2022-08-29] MEDS ORDERED: DEXTROSE IV ONE (02:18)
[2022-08-29] MEDS: WATER FOR INJ,STERILE 1,000 ML with NA BICARB 8.4% 150 MEQ IV SCH ×2 (04:47)
[2022-08-29 05:09] VITALS: BMI 25.7
--- NOTE | 2022-08-29 05:36 | OP ---
Date of Procedure: 08/28/2022 Surgeon: Sb Boucher MD Preoperative Diagnosis: End-stage renal disease. Postoperative Diagnosis: End-stage renal disease. Procedure: 1.Insertion of right neck hemodialysis catheter. 2.Right neck ultrasound. Estimated Blood Loss: Less than 10 mL. Anesthesia: Local. Complications: None. Implants: Hemodialysis catheter in the right internal jugular vein. Findings: On ultrasound, patent jugular vein and carotid. Indications: This is a case of a 66-year-old patient who comes to us with multiple medical problems, hypotensive, acidotic and needed hemodialysis catheter today. The patient was initially going to lama ve a hemodialysis catheter, but they could not get the pressure into a safe area for anesthesia to be given to have this procedure done. So the case was cancelled in the OR and have to do the case as a n emergency in the ICU. The previously consent was explained with benefits, alternatives, and risks including, but not limited to infection, bleeding, damage to adjacent structures, anesthesia complica tion, pneumothorax, hemothorax, pericardiac tamponade, DVT, HI, even . The Renal Service needs dialysis catheter today. In the ICU, they were kind enough to trying to accommodate and trying to ke ep the patient in vasoconstriction now to keep the blood pressure at least acceptable. Procedure In Detail: We initially started on the right femoral region. We obtained time-out, preppe d and draped the area in usual sterile fashion. We canalized the right femoral vein, but we cannot p ass the wire through. We tried a second time. It was the same situation once again. It is hard for me to get all the history from her since most of the history is obtained from the chart. I am not s ure there was any intervention in that area. I aborted that case. On the left side, the patient has a lot of scar tissue in that region too. Some previous catheters were placed in that area. At the end, we ended up just doing on the right neck region. I placed the patient in Trendelenburg position . The right neck was prepped and draped in a sterile fashion. Local anesthesia was applied. A time -out was called. Ultrasound of that area was done, showed patency of the right internal jugular vein . With that help, we proceeded to introduce a needle in the right internal jugular vein. I passed a guidewire. A small incision was made in the skin. Dilator was placed in, then I removed and then t hrough the guidewire, we put the hemodialysis catheter. The guidewire was removed and the line was s ecured in place with 2-0 nylon. The patient tolerated the procedure well. The patient was brought b ack to normal position and a chest x-ray was ordered stat. Neck area was intact. No hematoma seen. No bleeding. The area of the femoral region also shows no bleeding. BRE/MARLEN Voice ID: [id number] Report ID: [id number]
[2022-08-29 06:15] LABS: Absolute Lymphocytes (CBC) 0.4 K/uL (0.7-4.9); Lymphocytes % 1.1 % (15.3-44.8); MCV 94.7 fL (80-100); MPV 6.6 fL (7.6-11.3); RBC Red Blood Cell Count 1.84 M/uL (3.86-4.86)
[2022-08-29 06:24] LABS: Hematocrit 17.5 % (36.0-45.0)
[2022-08-29] MEDS: FUROSEMIDE 40 MG/4 ML VIAL IV SCH ×3 (06:41→18:33)
[2022-08-29 07:02] LABS: BUN Blood Urea Nitrogen 76 mg/dL (7-18); Glomerular Filtration Rate 9 ml/min (=/>90); Glucose Level 325 mg/dL (74-106); Magnesium 2.1 mg/dL (1.8-2.4); Potassium 4.4 mmol/L (3.5-5.1); Sodium Level 123 mmol/L (136-145)
[2022-08-29 07:07] LABS: Phosphorus 8.9 mg/dL (2.5-4.9)
[2022-08-29 07:09] LABS: Bicarbonate < 8 mmol/L (21-32)
[2022-08-29] MEDS ORDERED: NOREPINEPHRINE 16 MG in D5W 250 ML IV SCH (08:00)
[2022-08-29 08:32] LABS: Platelet Estimate ADEQ; Platelets, Giant FEW
[2022-08-29 08:33] LABS: Anisocytosis 1+; Blood Morphology Comment NOTED (NOT SEEN); Poikilocytosis 1+; Polychromasia 2+; Toxic Granulation 2+
[2022-08-29] MEDS: ALBUMIN HUMAN 25% 50 ML IV SCH ×3 (08:46→16:31)
[2022-08-29] MEDS ORDERED: NA CHLORIDE 0.9% 250 ML ONE (08:52)
[2022-08-29] MEDS: CALCIUM GLUC 10% INJ 4.65 MEQ in NA CHLORIDE 0.9% 100 ML IV SCH ×2 (08:55→16:05)
[2022-08-29] MEDS: MIDODRINE HCL 5 MG TABLET PO SCH ×3 (09:00→19:38)
[2022-08-29] MEDS: Meropenem 1,000 MG in NA CHLORIDE 0.9% 100 ML IV SCH (09:48)
[2022-08-29] MEDS ORDERED: propofoL 1,000 MG/100 ML VIAL IV ONE (10:09)
[2022-08-29] MEDS ORDERED: ROCURONIUM 50 MG/5 ML VIAL IV ONE (10:10)
[2022-08-29 10:31] LABS: Protime INR 2.68
--- NOTE | 2022-08-29 11:03 | PN ---
Ms. Peña has been followed for elevated troponin, acute kidney injury, elevated BNP, history of pac emaker placement. She is being treated with antibiotics. Nephrology is following. No need for card iac intervention at this point. Echocardiogram showed normal left ventricular ejection fraction, no wall motion abnormalities, aortic sclerosis without any stenosis. Again, we feel that her laboratory abnormalities are secondary to demand ischemia and renal dysfunction. On 08/28/2022; she was in a p aced rhythm, heart rate was 112, blood pressure 94/68, she was being dialyzed. Last white count was 26,000. Last troponin was 243. She was COVID negative. Last medical regimen includes Levophed, ant ibiotics, midodrine. I agree with her present regimen. No further cardiac workup necessary at this point. We will sign off her case. RUBINA/MARLEN Voice ID: [id number] Report ID: [id number]
[2022-08-29 11:10] LABS: Arterial Blood Carboxyhemoglob 0.9 % (0-1.5); Blood Gas Oxyhemoglobin 96.1 % (94-97); Blood O2 Saturation 98.9 % (92-98.5)
--- NOTE | 2022-08-29 11:31 | RAD REPORT ---
EXAM DESCRIPTION: RAD - Chest Single View - 08/29/2022 11:06 am CLINICAL HISTORY: E-tube placement COMPARISON: Chest Pa And Lat (2 Views) dated 01/09/2021; Chest Pa And Lat (2 Views) dated 12/01/2018; C HEST SINGLE VIEW dated 03/16/2011Chest Single View dated 08/28/2022; Chest Single View dated 08/26/2022 hest Single View dated 08/28/2022; Chest Single View dated 08/26/2022; Thorax Wo Con dated 08/28/2022 FINDINGS: Lines: Enteric tube at the aortic arch in satisfactory position. Pacemaker. Right IJ appro ach central line with tip in similar positioning at the superior cavoatrial junction. Defibrillator p ad overlies the heart. Lungs: Bilateral interstitial and airspace disease. Pleural: Layering effusions difficult to exclude. Cardiac: Cardiomegaly. Mediastinum: Within normal limits. Bones: No acute fractures. Other: None IMPRESSION: 1. Endotracheal tube in satisfactory position at the aortic arch. Remain of the support apparatus is in similar positioning. 2. Bilateral airspace disease may represent a combination of edema, pneumonia, and pleural effusions.
[2022-08-29 11:38] LABS: Albumin 2.1 g/dL (3.4-5.0); Bilirubin Total 0.9 mg/dL (0.2-1.0); Potassium 3.8 mmol/L (3.5-5.1); Protein, Total 4.7 g/dL (6.4-8.2)
--- NOTE | 2022-08-29 12:53 | P.BOP ---
Preoperative diagnosis: Hypotension Postoperative diagnosis: Same Primary procedure: Insertion of arterial line Estimated blood loss: <10c Specimen: none Anesthesia: None Complications: None Transferred to: Other (At the bedside) Condition: Critical
--- NOTE | 2022-08-29 13:00 | P.PN ---
Subjective Date of Service: 08/29/22 Chief Complaint: JARAD, UTI, Elevated Troponin Patient remained obtunded. Anuric Hypotensive currently on 2 vasopressors. Anemia with hemoglobin down to 5.4. Intubated and on mechanical ventilation. Physical Examination - Vital Signs Temperature: 97.3 F Blood Pressure: 88/59 Pulse: 101 Respirations: 16 Pulse Ox (%): 90 Assessment And Plan - Current Problems (Diagnosis) (1) Metabolic encephalopathy Current Visit: Yes Status: Acute (2) Metabolic acidosis Current Visit: Yes Status: Acute (3) UTI (urinary tract infection) due to urinary indwelling Daniel catheter Current Visit: Yes Status: Acute Qualifiers: Indwelling urinary catheter type: indwelling urethral catheter Encounter type: initial encounter Qualified Code(s): T83.511A - Infection and inflammatory reaction due to indwelling urethral catheter, initial encounter; N39.0 - Urinary tract infection, site not specified (4) Acute worsening of stage 4 chronic kidney disease Current Visit: Yes Status: Acute (5) Septic shock Current Visit: Yes Status: Acute (6) Hypovolemic shock Current Visit: Yes Status: Acute - Plan Physical Exam General: Obtunded. Neck: Supple, no elevated JVD Respiratory: Intubated and on mechanical ventilation,clear to auscultation bilaterally, Normal air movement Cardiovascular: Tachycardic, normal S1 S2 Gastrointestinal: Normal bowel sounds, No tenderness Integumentary: No rashes Neurological: Obtunded, she moves all extremities spontaneously. Urinary: Daniel catheter. Plan: Patient with severe metabolic acidosis, profound hypotension, anemic with hemoglobin down to 5.4, unresponsive, anuric, hyponatremia, elevated LFTs secondary to ischemic hepatitis/shock liver. Poor prognosis. Had a discussion with the who stated patient previously expressed her wishes to continue aggressive treatment. Patient currently on 2 vasopressors. Titrate to a map of 65. Nephrology is following and treating metabolic acidosis with intravenous bicarb. Plan is to curb metabolic acidosis for his blood pressure to improve to the point where she will need less pressors and be able to do dialysis. She also has UTI. Urine culture is growing gram-negative rods. Left upper extremity wound culture is growing staph aureus. Christo catheter placed for dialysis Arterial line inserted. Dr. Quiroz will like to attempt a tri-lumen dialysis catheter today. Status post IV albumin infusion. Continue bicarb drip and IV bicarb pushes. Monitor BMP and ABG and give bicarb pushes as needed to keep pH greater than 7.2. IV fluid. Continue IV antibiotics-currently on meropenem and vancomycin. Blood cultures: No growth Follow urine culture. Poor prognosis. CODE STATUS: Full code. Critical care time spent: 78 minutes
[2022-08-29] MEDS: WATER IV SCH ×2 (13:10→19:30)
[2022-08-29] MEDS: NOREPINEPHRINE IV SCH ×2 (13:10→19:30)
[2022-08-29] MEDS: DEXTROSE 5% IV SCH ×2 (13:10→19:30)
--- NOTE | 2022-08-29 14:26 | P.PN ---
Date of Service: 08/29/22 Left Femoral Vein Trialysis Dialysis Catheter Insertion Procedure Note INDICATION: IV access, IV meds, hemodialysis PROCEDURE SCREW EYE ASSEMBLER: Dr. Clif Quiroz Ultrasound Used: Y CONSENT: Obtained from family PROCEDURE SUMMARY: A time out was performed. My hands were washed immediately prior to the procedure. I wore a surgical cap, mask, sterile gown, & sterile gloves throughout the procedure. The LEFT inguinal region was prepped using chlorhexidine scrub and draped in sterile fashion using a full drape and sterile probe cover and sterile gel employed. The femoral pulse was identified. Anesthesia was achieved using 1% lidocaine. Palpating the femoral pulse throughout the procedure, the introducer needle was inserted medial to the femoral artery, inferior to the inguinal crease and into the femoral vein. Venous blood was withdrawn. The syringe was removed and a guidewire was advanced into the introducer needle. A small incision was made at the skin surface with a scalpel and the introducer needle was exchanged for 2 dilators over the guidewire. After appropriate dilation was obtained, the dilator was exchanged over the wire for a _ central venous catheter. The wire was removed and the catheter was sutured in place. A sterile shield was placed over the catheter at the insertion site. The patient tolerated the procedure without any hemodynamic compromise. At time of procedure completion, all ports were aspirated and flushed properly. The dialysis venous & arterial ports were locked w/ heparin, using 1.2 ml each. Estimated blood loss is 5 cc.
[2022-08-29] MEDS: PHENYLEPHRINE HCL IV SCH (14:42)
[2022-08-29 14:56] LABS: Arterial Blood Carboxyhemoglob 0.9 % (0-1.5); Blood Gas Oxyhemoglobin 91.7 % (94-97); Blood O2 Saturation 94.1 % (92-98.5)
[2022-08-29] MEDS ORDERED: CALCIUM GLUCONATE 1 GM IVPB 1 GM/50 ML BAG IV SCH (16:00)
[2022-08-29 16:53] LABS: Potassium 3.4 mmol/L (3.5-5.1)
[2022-08-29 18:26] LABS: Arterial Blood Carboxyhemoglob 1.2 % (0-1.5); Blood Gas Oxyhemoglobin 94.6 % (94-97); Blood O2 Saturation 97.3 % (92-98.5)
[2022-08-29] MEDS ORDERED: D5W 1,000 ML with NA BICARB 8.4% 150 MEQ IV SCH ×2 (19:00)
[2022-08-29] MEDS ORDERED: NA CHLORIDE 0.9% 1,000 ML IV SCH (19:00)
--- NOTE | 2022-08-29 19:01 | RAD REPORT ---
EXAM DESCRIPTION: US - Extremity Venous Uni Ltd - 08/29/2022 6:44 pm CLINICAL HISTORY: right groin hematoma COMPARISON: UPPER EXTREMITY VENOUS UNILATE dated 08/29/2022 FINDINGS: Color Doppler, grayscale, and spectral analysis was performed. Incompletely compressible right greater saphenous vein and proximal femoral vein. Unable to evaluate the popliteal vein due to the patient's positioning. The common femoral vein is patent. IMPRESSION: Positive for deep venous thrombosis in the right lower extremity. Partially compressible right greater saphenous vein and proximal femoral vein.
--- NOTE | 2022-08-29 19:02 | RAD REPORT ---
EXAM DESCRIPTION: US - UPPER EXTREMITY VENOUS UNILATE - 08/29/2022 6:44 pm CLINICAL HISTORY: right arm swelling COMPARISON: No comparisons FINDINGS: Color Doppler, grayscale, and spectral analysis was performed. Examination limited due to positioning and overlying bandage material. The right internal jugular vein, subclavian vein, axillary vein, brachial vein, basilic vein, radial vein, and ulnar vein all compress and are patent. IMPRESSION: No evidence of venous thrombosis in the right upper extremity.
--- NOTE | 2022-08-29 21:03 | PN ---
Date of Progress Note: 08/29/2022 Chief Complaint: Acute kidney injury, severe hypotension and shock. Subjective: Patient was transferred to ICU yesterday. Patient was found to have severe metabolic ac idosis and hypotension, she was on 2 pressor drip. She was started on sodium bicarbonate infusion an d also received extra boluses with sodium bicarbonate treatment IV. The patient received IV albumin and calcium gluconate. Subsequently, she was intubated today and catheter was placed today again for hemodialysis with dry dialysis catheter access SLED B. The patient is on IV Lasix as well and she r emains nonoliguric. Review of Systems: Unobtainable. Physical Examination: General: Patient is very lethargic. Eyes: Anicteric sclerae. Neck: Supple. Lungs: Coarse breath sounds. Heart: S1, S2. Abdomen: Soft. Extremities: Edema present. Impression And Plan: Acute kidney injury secondary to hypotension. The patient remains nonoliguric. Patient will require dialysis to be started as soon as possible, although patient is unstable for d ialysis and she will need IV bicarbonate to treat severe metabolic acidosis. Plan to continue IV alb umin and calcium gluconate. The patient was found to have staph positive culture from the wound and patient is on vancomycin. Continue to monitor vancomycin levels. The patient is on broad-spectrum antibiotic. Continue cefepime and vancomycin. Patient has multiple medical problems including pulmonary hypertension and cardiomyopathy. Currently , she had severe acute kidney injury. She will require daily dialysis. EB/MODL Voice ID: [id number] Report ID: [id number]
[2022-08-29 22:35] LABS: Potassium 3.6 mmol/L (3.5-5.1)
[2022-08-29] MEDS ORDERED: SODIUM BICARB 50 MEQ/50ML VIAL ONE (23:38)
[2022-08-29] MEDS ORDERED: NACHLORIDE 0.45% 1,000 ML IV ONE (23:39)
[2022-08-29] MEDS: NACHLORIDE 0.45% 1,000 ML with NA BICARB 8.4% 100 MEQ IV SCH ×2 (23:45)
[2022-08-29] MEDS ORDERED: NACHLORIDE 0.45% 1,000 ML with NA BICARB 8.4% 100 MEQ IV SCH ×2 (23:45)
[2022-08-30] MEDS: WATER IV SCH ×2 (01:15→07:02)
[2022-08-30] MEDS: DEXTROSE 5% IV SCH ×2 (01:15→07:02)
[2022-08-30] MEDS: NOREPINEPHRINE IV SCH ×5 (01:15→23:22)
[2022-08-30] MEDS: PHENYLEPHRINE HCL IV SCH ×3 (01:17→20:30)
[2022-08-30] MEDS: D5W IV SCH ×3 (01:17→20:30)
[2022-08-30] MEDS: FUROSEMIDE 40 MG/4 ML VIAL IV SCH (01:21)
[2022-08-30 05:40] LABS: Albumin 2.3 g/dL (3.4-5.0); Phosphorus 7.7 mg/dL (2.5-4.9); Potassium 3.7 mmol/L (3.5-5.1)
[2022-08-30] MEDS ORDERED: HYDROCORTISONE NA SUC 200 MG in NA CHLORIDE 0.9% 100 ML IV SCH (08:46)
--- NOTE | 2022-08-30 08:47 | P.CNS ---
Date of Consult: 08/30/22 Reason for Consult: Refractory shock respiratory failure Chief Complaint: JARAD, UTI, Elevated Troponin History of Present Illness: Patient is 66 years of age multiple medical problems metabolic syndrome resented to the emergency with altered mental status was found to be in refractory shock currently on 2 vasopressors and a ventilator unresponsive extremities mottled she has had dialysis before Very poor baseline functioning Allergies No Known Allergies Allergy (Unverified 08/27/22 02:50) Home Medications: Allopurinol 300 mg PO DAILY 08/27/22 Furosemide 40 mg PO DAILY 08/27/22 Gabapentin 300 mg PO BID 08/27/22 Hydroxychloroquine [Plaquenil*] 200 mg PO DAILY 08/27/22 Levothyroxine Sodium [Synthroid] 0.5 mg PO DAILY 08/27/22 Midodrine HCl 5 mg PO Q8H 08/27/22 Potassium Chloride [K-Dur] 10 meq PO DAILY 08/27/22 Spironolactone 25 mg PO BID 08/27/22 - Past Medical/Surgical History Diabetic: Yes -: Chronic Kidney Disease 4 -: Hypertension -: Type 2 Diabetes, Non-Insulin Dependent -: Atrial Fibrillation -: Systolic CHF -: Neurogenic bladder with indwelling haley catheter -: Bradycardia -: Hypothyroidism -: Dysphagia -: ICD/Pacemaker Psychosocial/ Personal History: Patient is . - Social History Alcohol use: No CD- Drugs: No Caffeine use: Yes Place of Residence: Home Review of Systems is unable to be obtained Physical Examination Temp Pulse Resp BP Pulse Ox 97 F 102 H 16 89/62 L 91 08/30/22 04:00 08/30/22 06:00 08/30/22 06:00 08/30/22 06:00 08/29/22 17:30 General: Comatose Respiratory: Clear to auscultation bilaterally, Diminished Cardiovascular: Normal S1 S2, Edema Integumentary: Other (Mottled extremities) - Problems (1) Refractory shock Current Visit: Yes Status: Acute Plan: Patient is 66 years of age multiple medical problems renal failure diabetes heart failure admitted with altered mental status refractory shock currently on 2 vasopressors history of ESBL admitted with severe acidosis renal failure underwent dialysis yesterday mottled comatose we will try some hydrocortisone patient is on vancomycin meropenem oxygenation ventilation satisfactory on pressure control labs reviewed chest x-ray reviewed diffuse changes endotracheal tube satisfactory position urine cultures are also positive patient is auto anticoagulated labs chest x-ray reviewed discussed with the nursing staff. Her underlying baseline functioning is very poor according to patient wanted to be full code
[2022-08-30] MEDS: Meropenem 1,000 MG in NA CHLORIDE 0.9% 100 ML IV SCH (08:55)
[2022-08-30] MEDS: MIDODRINE HCL 5 MG TABLET PO SCH ×3 (08:56→19:36)
[2022-08-30] MEDS: HYDROCORTISONE SUC 100 MG INJ IV SCH ×2 (09:01→19:49)
[2022-08-30] MEDS ORDERED: CALCIUM GLUCONATE 1 GM IVPB 1 GM/50 ML BAG IV ONE ×3 (09:18→19:48)
[2022-08-30] MEDS: NACHLORIDE 0.45% 1,000 ML with NA BICARB 8.4% 100 MEQ IV SCH ×2 (09:38)
--- NOTE | 2022-08-30 10:11 | RAD REPORT ---
EXAM DESCRIPTION: RAD - Chest Single View - 08/30/2022 9:37 am CLINICAL HISTORY: Respiratory failure Chest pain. COMPARISON: Chest Single View dated 08/29/2022; Chest Single View dated 08/28/2022; Chest Single View dated 08/26/2022 FINDINGS: Portable technique limits examination quality. Tip of the endotracheal tube is the level of the superior aortic arch. Mild bilateral pulmonary opaci ties appear unchanged. Multi lead pacer device is present.The heart is mildly enlarged. IMPRESSION: No significant change since yesterday's study.
[2022-08-30 10:39] LABS: Absolute Lymphocytes (CBC) 0.6 K/uL (0.7-4.9); Hematocrit 23.7 % (36.0-45.0); Lymphocytes % 1.6 % (15.3-44.8); MCV 91.9 fL (80-100); RBC Red Blood Cell Count 2.58 M/uL (3.86-4.86)
[2022-08-30 11:10] LABS: Basophilic Stippling 1+; Blood Morphology Comment NOTED (NOT SEEN); Howell-Jolly Bodies NOTED; Platelet Estimate DECR; Toxic Granulation 1+
[2022-08-30 11:21] LABS: Potassium 3.9 mmol/L (3.5-5.1)
--- NOTE | 2022-08-30 11:26 | P.PN ---
Subjective Date of Service: 08/29/22 Chief Complaint: JARAD, UTI, Elevated Troponin Subjective: Worsening Review of Systems is unable to be obtained Physical Examination - Vital Signs Temperature: 97 F Blood Pressure: 97/66 Pulse: 106 Respirations: 17 Pulse Ox (%): 96 - Physical Exam HEENT: PERRLA Neck: Other (intact catheter, no bleeding) Respiratory: Other (bilateral breath sounds) - Studies Microbiology Data (last 24 hrs): 08/26/22 22:43 Clean Catch Urine Driggs Count - Final >100,000 CFU/ML. 08/26/22 22:43 Clean Catch Urine - Final Citrobacter Koseri Klebsiella Pneumoniae Esbl Assessment And Plan - Plan Critical condition continue treatment per primary MD
--- NOTE | 2022-08-30 11:44 | P.PN ---
Subjective Date of Service: 08/30/22 Chief Complaint: JARAD, UTI, Elevated Troponin Patient remained obtunded. She is not needing sedation for the vent. Anuric. Status post hemodialysis yesterday She remains on 2 vasopressors. She has developed moderately of the lower extremities and bilateral flank with blisters. Physical Examination - Vital Signs Temperature: 97 F Blood Pressure: 97/66 Pulse: 106 Respirations: 17 Pulse Ox (%): 96 - Studies Microbiology Data (last 24 hrs): 08/26/22 22:43 Clean Catch Urine [place] Count - Final >100,000 CFU/ML. 08/26/22 22:43 Clean Catch Urine - Final Citrobacter Koseri Klebsiella Pneumoniae Esbl Assessment And Plan - Current Problems (Diagnosis) (1) Metabolic encephalopathy Current Visit: Yes Status: Acute (2) Metabolic acidosis Current Visit: Yes Status: Acute (3) UTI (urinary tract infection) due to urinary indwelling Daniel catheter Current Visit: Yes Status: Acute Qualifiers: Indwelling urinary catheter type: indwelling urethral catheter Encounter type: initial encounter Qualified Code(s): T83.511A - Infection and inflammatory reaction due to indwelling urethral catheter, initial encounter; N39.0 - Urinary tract infection, site not specified (4) Acute worsening of stage 4 chronic kidney disease Current Visit: Yes Status: Acute (5) Septic shock Current Visit: Yes Status: Acute (6) Hypovolemic shock Current Visit: Yes Status: Acute - Plan Physical Exam General: Obtunded. ENT: Intubated Neck: Supple, Respiratory: Intubated and on mechanical ventilation,clear to auscultation bilaterally, Normal air movement Cardiovascular: Tachycardic, normal S1 S2 Gastrointestinal: Normal bowel sounds, No tenderness Integumentary: Large areas of skin mottling and blisters on the lower extremities and bilateral flanks Neurological: Obtunded. Urinary: Daniel catheter. Plan: Patient with severe metabolic acidosis, profound hypotension, anemic with hemoglobin down to 5.4, unresponsive, anuric, hyponatremia, elevated LFTs secondary to ischemic hepatitis/shock liver. Poor prognosis. stated who stated patient previously expressed her wishes to continue aggressive treatment. She remains on 2 vasopressors. Titrate to a map of 65. Nephrology is following and treating metabolic acidosis with intravenous bicarb. Status post hemodialysis yesterday. She also has UTI-ESBL Klebsiella and Citrobacter. Left upper extremity wound culture is growing staph aureus. Dialysis access catheter-right IJ and left femoral Arterial line inserted. Continue IV meropenem and vancomycin Status post IV albumin infusion. Continue bicarb drip and IV bicarb pushes as needed for metabolic acidosis. Calcium gluconate for hypocalcemia. Dextrose infusion. Blood cultures: No growth Poor prognosis. Recommending comfort measures. CODE STATUS: Full code.
[2022-08-30] MEDS: D50W 25 GM/50 ML SYRINGE IV PRN ×2 (12:25→18:42)
[2022-08-30 13:08] LABS: Albumin 2.2 g/dL (3.4-5.0); Bilirubin Direct 2.1 mg/dL (0-0.2); Bilirubin Total 3.1 mg/dL (0.2-1.0); Protein, Total 4.1 g/dL (6.4-8.2)
[2022-08-30] MEDS: NA CHLORIDE 0.9% IV SCH ×3 (13:27→23:22)
[2022-08-30] MEDS: D5W 1,000 ML with NA BICARB 8.4% 150 MEQ IV SCH ×2 (14:46)
[2022-08-30] MEDS ORDERED: LORazepam 2 MG/ML VIAL ONE (16:29)
[2022-08-30] MEDS ORDERED: LORazepam 2 MG/ML VIAL IV PRN ×2 (17:06→18:19)
[2022-08-30 18:07] LABS: Bilirubin Total 3.6 mg/dL (0.2-1.0); Potassium 4.3 mmol/L (3.5-5.1); Protein, Total 3.8 g/dL (6.4-8.2)
[2022-08-30] MEDS ORDERED: D10W 0 ML IV ONE (18:41)
[2022-08-30] MEDS ORDERED: CALCIUM GLUC 10% INJ 9.3 MEQ in NA CHLORIDE 0.9% 100 ML IV ONE (19:05)
[2022-08-30 20:31] LABS: Potassium 3.8 mmol/L (3.5-5.1)
--- NOTE | 2022-08-30 21:38 | PN ---
Date of Progress Note: 08/30/2022 Chief Complaint: Acute kidney injury. Subjective: Patient remains critically ill. She developed seizure this evening. She is intubated o n high dose of 2 pressors. She received IV albumin for volume expansion and to treat hypotension. P reinier is on bicarbonate drip. She has a metabolic acidosis and liver function tests are elevated. Patient appears to have shock liver. She was consulted by Critical Care and she received dialysis ye sterday. She is on broad-spectrum antibiotic for sepsis and septic shock. Review of Systems: Unobtainable. Physical Examination: General: Patient is lethargic, intubated, ventilated. Lungs: Equal chest expansion. Heart: S1, S2. Abdomen: Soft. Extremities: Edema in lower extremities. Subcutaneous hematoma present. No drainage. Impression And Plan: Patient remains critically ill. Patient has acute kidney injury. She received dialysis yesterday. Potassium level is within normal limits, although patient required high dose of sodium bicarbonate drip to control metabolic acidosis. Patient likely has a shock liver. She recei abdifatah dialysis yesterday and she is on Lasix as well to induce diuresis. Patient will continue vancomy charlie for septic shock along with cefepime. Continue to monitor vancomycin level and she is recommended Neurology consultation. Overall prognosis is very poor. EB/MODL Voice ID: [id number] Report ID: [id number]
[2022-08-30] MEDS ORDERED: VANCOMYCIN 1.25 GM in NA CHLORIDE 0.9% 250 ML IVPB SCH ×2 (22:00→23:00)
[2022-08-30 22:07] LABS: Arterial Blood Carboxyhemoglob 0.6 % (0-1.5); Blood Gas Oxyhemoglobin 96.3 % (94-97); Blood O2 Saturation 98.8 % (92-98.5)
--- NOTE | 2022-08-30 22:12 | RAD REPORT ---
EXAM DESCRIPTION: US - Abdomen Exam Complete - 08/30/2022 9:54 pm CLINICAL HISTORY: Abdominal pain. clarence, elevated LFT, shock liver COMPARISON: No comparisons FINDINGS: Significantly limited examination due to the patient's clinical status. The liver is normal in size, shape and echotexture. No focal liver lesions or intrahepatic biliary di latation is seen. The gallbladder demonstrates no gallstones, pericholecystic fluid or gallbladder wall thickening. Co mmon bile duct is normal in caliber measuring 5 millimeters. Normal right kidney. Left kidney not visualized due to patient positioning. The spleen nonvisualized due to patient positioning. The pancreas and aorta are obscured by bowel gas. The visualized aspects of the IVC are grossly normal. Mild free fluid in the right upper quadrant and left upper quadrant. IMPRESSION: Mild free fluid in the right upper quadrant and left upper quadrant. Unremarkable appearance to the liver. Significantly limited study.
[2022-08-30] MEDS ORDERED: VANCOMYCIN 500 MG in NA CHLORIDE 0.9% 250 ML IVPB SCH (23:00)
[2022-08-30 23:24] LABS: Potassium 3.8 mmol/L (3.5-5.1)
[2022-08-31] MEDS ORDERED: CALCIUM GLUC 10% INJ 9.3 MEQ in NA CHLORIDE 0.9% 100 ML IV ONE (00:17)
[2022-08-31] MEDS ORDERED: CALCIUM GLUCONATE 1 GM IVPB 2 GM/100 ML BAG IV ONE (00:17)
[2022-08-31] MEDS ORDERED: CALCIUM GLUCONATE 1 GM IVPB 1 GM/50 ML BAG IV ONE ×4 (00:45→13:00)
[2022-08-31] MEDS: PHENYLEPHRINE HCL IV SCH ×2 (01:29→07:20)
[2022-08-31] MEDS: D5W IV SCH ×2 (01:29→07:20)
[2022-08-31] MEDS: D5W 1,000 ML with NA BICARB 8.4% 150 MEQ IV SCH ×2 (02:43)
[2022-08-31] MEDS: NA CHLORIDE 0.9% IV SCH ×2 (03:12→07:19)
[2022-08-31] MEDS: NOREPINEPHRINE IV SCH ×2 (03:12→07:19)
[2022-08-31 04:50] LABS: Absolute Lymphocytes (CBC) 1.2 K/uL (0.7-4.9); Lymphocytes % 2.4 % (15.3-44.8); MCV 91.6 fL (80-100); MPV 10.3 fL (7.6-11.3); RBC Red Blood Cell Count 3.49 M/uL (3.86-4.86)
[2022-08-31 05:07] VITALS: TEMP 97
[2022-08-31 05:24] LABS: Blood Morphology Comment NOTED (NOT SEEN); Platelet Estimate DECR; Polychromasia 2+
[2022-08-31 05:44] LABS: Albumin 1.8 g/dL (3.4-5.0); Phosphorus 7.6 mg/dL (2.5-4.9); Potassium 3.6 mmol/L (3.5-5.1); Protein, Total 3.4 g/dL (6.4-8.2)
[2022-08-31 05:45] LABS: Bilirubin Total 5.3 mg/dL (0.2-1.0)
[2022-08-31] MEDS ORDERED: CALCIUM GLUC 10% INJ 4.65 MEQ in NA CHLORIDE 0.9% 100 ML IV ONE ×2 (06:00→13:00)
[2022-08-31] MEDS ORDERED: ALBUMIN HUMAN 25% 200 ML IV ONE ×2 (06:01→08:00)
[2022-08-31] MEDS ORDERED: NOREPINEPHRINE 4 MG/4 ML VIAL ONE (06:39)
[2022-08-31] MEDS ORDERED: NA CHLORIDE 0.9% 100 ML IV ONE (06:39)
[2022-08-31] MEDS ORDERED: VANCOMYCIN 1 GM in NA CHLORIDE 0.9% 250 ML IVPB ONE (08:00)
--- NOTE | 2022-08-31 08:02 | RAD REPORT ---
EXAM DESCRIPTION: Satnam Single View08/31/2022 5:46 am CLINICAL HISTORY: Respiratory failure COMPARISON: August 30, 2022 FINDINGS: Mild to moderate bilateral pulmonary opacities unchanged. Heart is mildly enlarged. Endotracheal tube has its tip overlying the aortic arch. Pacemaker leads in place. Small pleural effusions IMPRESSION: No significant change since the prior exam
[2022-08-31] MEDS: MIDODRINE HCL 5 MG TABLET PO SCH (08:14)
[2022-08-31] MEDS: Meropenem 1,000 MG in NA CHLORIDE 0.9% 100 ML IV SCH (08:19)
[2022-08-31] MEDS: HYDROCORTISONE SUC 100 MG INJ IV SCH (08:21)
[2022-08-31] MEDS ORDERED: THIAMINE 200 MG/2 ML INJ IVP SCH (09:00)
[2022-08-31] MEDS ORDERED: CALCIUM GLUC 10% INJ 4.65 MEQ in NA CHLORIDE 0.9% 100 ML IV SCH (09:00)
[2022-08-31 10:48] VITALS: O2SAT 98
[2022-08-31 12:19] VITALS: BP 104/73
--- NOTE | 2022-08-31 12:26 | P.PN ---
Subjective Date of Service: 08/31/22 Chief Complaint: Respiratory failure refractory shock Patient's condition is deteriorating she is unresponsive patient has hemic changes in the mid extremity with bullae Review of Systems is unable to be obtained Physical Examination - Vital Signs Temperature: 97 F Blood Pressure: 104/73 Pulse: 88 Respirations: 12 Pulse Ox (%): 95 - Physical Exam General: Comatose Respiratory: Clear to auscultation bilaterally, Diminished Integumentary: Other (Patient has large bullae in the lower extremity with discoloration mottled appearance of extremity) - Studies Microbiology Data (last 24 hrs): 08/26/22 22:43 Clean Catch Urine [place] Count - Final >100,000 CFU/ML. 08/26/22 22:43 Clean Catch Urine - Final Citrobacter Koseri Klebsiella Pneumoniae Esbl Assessment And Plan - Current Problems (Diagnosis) (1) Refractory shock Current Visit: Yes Status: Acute Plan: Patient admitted with refractory shock vasopressors are have been maximized no response patient has multiorgan failure labs reviewed patient was started on steroids urine cultures are positive patient later on this morning
--- NOTE | 2022-08-31 20:22 | P.DS ---
Admission Date: 08/26/22 Discharge Date: 08/31/22 Disposition: Discharge Condition: Reason for Admission: Respiratory failure refractory shock - Problems (1) Metabolic encephalopathy Status: Acute (2) Metabolic acidosis Status: Acute (3) UTI (urinary tract infection) due to urinary indwelling Haley catheter Status: Acute Qualifiers: Indwelling urinary catheter type: indwelling urethral catheter Encounter type: initial encounter Qualified Code(s): T83.511A - Infection and inflammatory reaction due to indwelling urethral catheter, initial encounter; N39.0 - Urinary tract infection, site not specified (4) Acute worsening of stage 4 chronic kidney disease Status: Acute (5) Septic shock Status: Acute (6) Hypovolemic shock Status: Acute Brief History of Present Illness: Patient is 66 year old female with past medical history significant for CKD4, hypertension, bradycardia s/p ICD, noninsulin dependent type 2 diabetes, chronic systolic CHF, neurogenic bladder with chronic indwelling haley catheter who presented to the emergency department with her with report of confusion. Haley catheter last changed 5 days prior. Her labs are significant for WBC 11.8, hgb 9, hct 27, CO2 12, BUN 82, Cr 4.76, trop HS 276.9, BNP 74787, urine positive for UTI. Head CT negative. Chest xray showed "left hemidiaphragm obscured which can be seen with left pleural effusion, as well as left lower consolidation or atelectasis." She was given rocephin and 1/2L fluid in ED. Patient was admitted for further management. Hospital Course: Patient admitted to the medical floor and started on antibiotics for UTI. Patient had severe metabolic acidosis, developed profound hypotension, became anemic with hemoglobin down to 5.4, unresponsive, anuric, hyponatremia. She was transferred to the ICU, antibiotics changed to IV meropenem, vancomycin added. Seen by nephrology who recommended hemodialysis. Patient was intubated and hooked to mechanical ventilator. Temporary dialysis catheter inserted. At this point patient was requiring 2 vasopressors for profound hypotension. She had elevated LFTs secondary to ischemic hepatitis/shock liver. Patient underwent hemodialysis with no significant improvement in clinical status. She remains hypotensive requiring 2 pressors running at maximum rate. She developed skin mottling, coffee-ground fluid suctioned from the NG tube. Urine culture grew ESBL Klebsiella Patient did not respond to treatment, clinical condition continued to deteriorate. made her DNR. Family later agreed to comfort measures. Patient within the hour of initiating comfort measures. Patient on08/31/2022 at 1048 hours. Vital Signs/Physical Exam: Temp Pulse Resp BP Pulse Ox 97 F 88 12 104/73 95 08/31/22 12:26 08/31/22 12:26 08/31/22 12:26 08/31/22 12:26 08/31/22 12:26 Laboratory Data at Discharge: WBC 47.40 K/uL (4.3-10.9) H* 08/31/22 04:29 Hgb 10.7 g/dL (12.0-15.0) L D 08/31/22 04:29 Hct 32.0 % (36.0-45.0) L 08/31/22 04:29 Plt Count 54 K/uL (152-406) L 08/31/22 04:29 PT 29.5 SECONDS (9.5-12.5) H 08/29/22 10:01 INR 2.68 08/29/22 10:01 APTT 58.5 SECONDS (24.3-36.9) H 08/29/22 10:01 Sodium 123 mmol/L (136-145) L 08/31/22 04:29 Potassium 3.6 mmol/L (3.5-5.1) 08/31/22 04:29 BUN 53 mg/dL (7-18) H 08/31/22 04:29 Creatinine 3.89 mg/dL (0.55-1.3) H 08/31/22 04:29 Glucose 136 mg/dL (74-106) H 08/31/22 04:29 Uric Acid 7.9 mg/dL (2.6-6.0) H 08/28/22 18:05 Phosphorus 7.6 mg/dL (2.5-4.9) H 08/31/22 04:29 Magnesium 2.1 mg/dL (1.8-2.4) 08/29/22 05:35 Total Bilirubin 5.3 mg/dL (0.2-1.0) H* 08/31/22 04:29 AST 7829 U/L (15-37) H* 08/31/22 04:29 ALT 1898 U/L (12-78) H* 08/31/22 04:29 Alkaline Phosphatase 285 U/L (45-117) H 08/31/22 04:29 Triglycerides 135 mg/dL (<150) 08/27/22 03:48 Cholesterol 129 mg/dL (<200) 08/27/22 03:48 HDL Cholesterol 65 mg/dL (40-60) H 08/27/22 03:48 Cholesterol/HDL Ratio 1.98 08/27/22 03:48 Home Medications: Allopurinol 300 mg PO DAILY 08/27/22 Furosemide 40 mg PO DAILY 08/27/22 Gabapentin 300 mg PO BID 08/27/22 Hydroxychloroquine [Plaquenil*] 200 mg PO DAILY 08/27/22 Levothyroxine Sodium [Synthroid] 0.5 mg PO DAILY 08/27/22 Midodrine HCl 5 mg PO Q8H 08/27/22 Potassium Chloride [K-Dur] 10 meq PO DAILY 08/27/22 Spironolactone 25 mg PO BID 08/27/22 Followup: KAVYA HOFF [Primary Care Provider] -
--- NOTE | 2022-08-31 22:56 | PN ---
Date of Progress Note: 08/31/2022 Chief Complaint: Acute on chronic kidney injury, severe refractory shock, respiratory failure, alter ed mental status. Patient is intubated, ventilated. She is on high dose of pressors. Blood pressur e is trending down. I discussed case with the patient and her at the bedside and he already decided about DNR status and he is contemplating withdrawal of care. Patient has severe sepsis. Whi te count is high. Urine culture showed Citrobacter koseri and Klebsiella pneumonia. Patient is on m eropenem and vancomycin. Review of Systems: Unobtainable. Physical Examination: Lungs: Diminished, equal chest expansion. Heart: S1, S2. Abdomen: Decreased bowel sounds. Extremities: Edema present. Skin: Discoloration, mottled skin. Impression And Plan: The patient is critically ill. She was found to have sepsis, septic shock. Sh marnie has history of congestive heart failure, and she was found to have elevated troponin. She is on pr essors and antibiotics. She received dialysis and she remains on bicarbonate drip. She is on calciu m gluconate infusion for hypocalcemia. The patient developed seizure yesterday. She is very letharg ic. Overall prognosis is poor. Her is contemplating withdrawal of care and he will talk wit h primary physician. ZORAN/MODL Voice ID: [id number] Report ID: [id number]
[2022-09-01 17:27] LABS: Albumin, (SPE) 2.4 g/dL (3.8-4.8); Alpha-1-Globulins 0.5 g/dL (0.2-0.3); Alpha-2-Globulins 0.6 g/dL (0.5-0.9); Gamma Globulins 0.7 g/dL (0.8-1.7); INTERPRETATION REPORT
[2022-09-01 20:47] LABS: Hepatitis C Virus RNA (PCR)log <1.18 log IU/mL
[2022-09-02 02:38] LABS: HBsAG Nonreactive (Nonreactive)
[2022-09-02 15:15] LABS: Vitamin D 1,25-Dihydroxy Total 20 pg/mL (18-72); Vitamin D,1,25-OH2, D2 9 pg/mL
== END 2022-08-31 10:48 | disposition expired | DRG 698 ==
LOC: ER 18:58 → ERHOLD 23:58 → 2ND 08-27 14:35 → 3RD-ICU 08-28 13:51
PROVIDERS: ADMIT Internal Medicine; ATTEND Internal Medicine
PROC: 5A09457 Assistance with Respiratory Ventilation, 24-96 Consecutive Hours, Continuous Positive Airway Pressure (ICD-10-PCS; 2022-08-28)
PROC: 5A1D70Z Performance of Urinary Filtration, Intermittent, Less than 6 Hours Per Day (ICD-10-PCS; 2022-08-28)
PROC: 02HV33Z Insertion of Infusion Device into Superior Vena Cava, Percutaneous Approach (ICD-10-PCS; 2022-08-28)
PROC: 02H633Z Insertion of Infusion Device into Right Atrium, Percutaneous Approach (ICD-10-PCS; 2022-08-28)
PROC: 5A1945Z Respiratory Ventilation, 24-96 Consecutive Hours (ICD-10-PCS; principal; 2022-08-29)
PROC: 0BH17EZ Insertion of Endotracheal Airway into Trachea, Via Natural or Artificial Opening (ICD-10-PCS; 2022-08-29)
DX: T83.511A Infection and inflammatory reaction due to indwelling urethral catheter, initial encounter (principal); A41.50 Gram-negative sepsis, unspecified; G93.41 Metabolic encephalopathy; N17.0 Acute kidney failure with tubular necrosis; J18.9 Pneumonia, unspecified organism; N18.6 End stage renal disease; R65.21 Severe sepsis with septic shock; K72.00 Acute and subacute hepatic failure without coma; I50.23 Acute on chronic systolic (congestive) heart failure; I24.8 Other forms of acute ischemic heart disease; E87.4 Mixed disorder of acid-base balance; I13.2 Hypertensive heart and chronic kidney disease with heart failure and with stage 5 chronic kidney disease, or end stage renal disease; E87.1 Hypo-osmolality and hyponatremia; Z16.12 Extended spectrum beta lactamase (ESBL) resistance; I25.110 Atherosclerotic heart disease of native coronary artery with unstable angina pectoris; N39.0 Urinary tract infection, site not specified; E11.22 Type 2 diabetes mellitus with diabetic chronic kidney disease; E11.40 Type 2 diabetes mellitus with diabetic neuropathy, unspecified; D63.1 Anemia in chronic kidney disease; E86.0 Dehydration; I27.20 Pulmonary hypertension, unspecified; E83.39 Other disorders of phosphorus metabolism; E03.9 Hypothyroidism, unspecified; E83.51 Hypocalcemia; E78.5 Hyperlipidemia, unspecified; I48.0 Paroxysmal atrial fibrillation; B96.1 Klebsiella pneumoniae [K. pneumoniae] as the cause of diseases classified elsewhere; B96.89 Other specified bacterial agents as the cause of diseases classified elsewhere; B95.61 Methicillin susceptible Staphylococcus aureus infection as the cause of diseases classified elsewhere; R57.1 Hypovolemic shock; R56.9 Unspecified convulsions; R77.8 Other specified abnormalities of plasma proteins; R79.89 Other specified abnormal findings of blood chemistry; Z66 Do not resuscitate; Z95.0 Presence of cardiac pacemaker; Z87.891 Personal history of nicotine dependence; Z79.890 Hormone replacement therapy; Z79.899 Other long term (current) drug therapy; Z20.822 Contact with and (suspected) exposure to COVID-19
CPT/HCPCS: 36415; 36430; 70450; 71045; 71250; 76700; 80048; 80053; 80061; 80069; 80076; 80202; 81015; 82024; 82140; 82533; 82550; 82553; 82570; 82607; 82627; 82652; 82728; 82746; 82805; 82947; 83540; 83605; 83735; 83880; 83970; 84100; 84156; 84165; 84443; 84466; 84484; 84550; 85014; 85018; 85025; 85044; 85610; 85730; 86317; 86704; 86706; 86850; 86900; 86901; 87040; 87070; 87077; 87086; 87088; 87186; 87205; 87340; 87522; 87811; 90935; 93005; 93306; 93971; 93975; 94002; 94003; 94660; 94760; 96374; 99284; J0610; J1642; J1644; J1720; J1940; J2185; J2370; J2405; J2704; J3370; J7030; J7040; J7050; J7060; J7120; P9016; P9017; P9040; P9047